=== PATIENT | female | born 1980 | race Caucasian/White ===

== ENCOUNTER 2020-02-29 22:48 | Emergency (ER) | payer SELFPAY ==
--- NOTE | ~2020-02-29 | XR_ITS ---
EXAMINATION: XR wrist RT min 3V INDICATION: Right wrist pain TECHNIQUE: Four views of the right wrist are obtained. COMPARISON: 10/31/2013 FINDINGS: There is no fracture, dislocation, or subluxation. The bones, soft tissues, and joint space s are normal. IMPRESSION: 1. No acute osseous abnormality. Reviewed, dictated and finalized at location A. ACTOR MACHINE OPERATOR
[2020-02-29 23:17] VITALS: BP 132/81; PULSE 90; RESP 20; TEMP 37.2; O2SAT 95
--- NOTE | 2020-02-29 23:24 | ED.UPPEXIN ---
HPI - Extremity Injury (Upper) General Chief Complaint: Extremity Injury, Upper Stated Complaint: 40YO female w/ 2 day h.o Right wrist pain upon waking up. Denies or deosn't recall trauma or injury. Here for pain relief. Related Data Home Medications Medication Instructions Recorded Confirmed gabapentin 600 mg PO TID 02/29/20 02/29/20 Allergies Allergy/AdvReac Type Severity Reaction Status Date / Time No Known Allergies Allergy Mild Unverified 10/21/08 17:03 Review of Systems Review of Systems: All systems reviewed & are unremarkable except as noted in HPI and below Exam Const: General: no acute distress Orientation/consciousness: patient oriented x3 Neuro: General: patient oriented x3, moves all extremities, no meningeal signs, no focal motor deficits and CN's II-XI intact bilaterally Cranial nerves: Yes Nystagmus not present Speech: normal speech Extrem: General: normal to inspection Other: R Wrist Tender to flexion and extension, no obvious deformity. Psych: Mental Status: mental status grossly normal Course Course Emergency Course: R/O Fx. D/C home on Po NSAID's Vital Signs Vital signs: Vital Signs Temperature 98.9 F 02/29/20 23:17 Pulse Rate 90 02/29/20 23:17 Respiratory Rate 20 02/29/20 23:17 Blood Pressure 132/81 02/29/20 23:17 Pulse Oximetry 95 02/29/20 23:17 Temperature 98.9 F 02/29/20 23:17 Pulse Rate 90 02/29/20 23:17 Respiratory Rate 20 02/29/20 23:17 Blood Pressure 132/81 02/29/20 23:17 Pulse Oximetry 95 02/29/20 23:17 MDM - Extremity Injury (Upper) Differential Diagnosis Differential diagnosis: Likely sprain and strain of wrist and fracture of wrist Medical Records Attestation: I reviewed the patient's medical records. Critical Care Time Critical Care Time Critical Care Time: No Discharge Plan Discharge Clinical Impression: Sprain and strain of wrist Patient Disposition: Home, Self-Care Condition: Improved Instructions: Antibiotic Form, Wrist Sprain (ED) Prescriptions: New naproxen 500 mg tablet 500 mg PO BID PRN (Reason: pain) Qty: 20 RF: 0 No Action gabapentin 600 mg Tablet 600 mg PO TID RF: 0 Follow-up/Referrals: UNKNOWN,DOCTOR [Primary Care Provider] -
[2020-02-29] MEDS: KETOROLAC (*BKC) 60 MG/2 ML VIAL IM (23:33)
[2020-02-29 23:55] VITALS: BP 110/80; PULSE 88; RESP 18; O2SAT 94
== END 2020-03-01 00:04 | disposition home or self-care (01) ==
PROVIDERS: Emergency Provider Family Medicine
DX: S63.501A Unspecified sprain of right wrist, initial encounter (principal)
CPT/HCPCS: 73110; 96372; 99283; J1885

== ENCOUNTER 2021-05-24 17:18 | Emergency (ER) | payer BC, SELFPAY ==
--- NOTE | ~2021-05-24 | XR_ITS ---
XR chest 1V portable DATE: 05/24/2021 18:50 INDICATION: Shortness of breath TECHNIQUE: Portable AP chest on 05/24/2021 at 1851 hours COMPARISON: 01/29/2017 two-view chest FINDINGS: Normal heart size. No hilar or mediastinal enlargement. No pulmonary infiltrate or consolid ation, pleural effusion or pulmonary vascular congestion or pneumothorax is detected. IMPRESSION: No active cardiopulmonary disease Reviewed, dictated and finalized at location A.
[2021-05-24 17:32] VITALS: BP 148/79; PULSE 106; RESP 16; TEMP 36.2; O2SAT 99
--- NOTE | 2021-05-24 18:25 | ECG_ITS ---
Measurements Intervals [place] Rate: 84 P: 49 [place]: 185 QRS: 32 QRSD: 86 T: 40 QT: 360 QTc: 427 Interpretive Statements SINUS RHYTHM NO PREVIOUS ECG AVAILABLE FOR COMPARISON Electronically Signed On 05-24-2021 18:45:19 CDT by Jamila Escalona M.D.
--- NOTE | 2021-05-24 18:31 | ED.LOWEXIN ---
HPI - Extremity Injury (Lower) General Chief Complaint: Extremity Injury, Lower Stated Complaint: swollen, heated cecil legs, Time Seen by Provider: 05/24/21 17:20 Source: patient and RN notes reviewed Mode of arrival: ambulatory Limitations: no limitations History of Present Illness complaint: leg injury Onset (ago): week(s) (1) Type of Injury: other (bilateral leg swelling with redness and mild pain x 1 week) Place: home Severity: moderate Severity scale (1-10): 7 Relieving factors: rest Exacerbating factors: weight bearing Associated symptoms: swelling Related Data Home Medications Medication Instructions Recorded Confirmed gabapentin 600 mg PO TID 02/29/20 05/24/21 Allergies Allergy/AdvReac Type Severity Reaction Status Date / Time No Known Allergies Allergy Mild Unverified 05/24/21 17:36 Review of Systems Review of Systems: All systems reviewed & are unremarkable except as noted in HPI and below PMFSH Past Medical History Medical History Dependent edema Leg swelling Exam Const: General: no acute distress and alert Nutritional Appearance: obese Orientation/consciousness: patient oriented x3 Limitations: no limitations HENMT: Head: normal to inspection Ears: external ears normal, TM's normal bilaterally and EAC's normal General nose exam: Normal external nose present and Normal nares present Face and sinus: normal facial exam and sinuses nontender Mouth: Yes moist mucous membranes Eyes: General: appearance normal, both eyes and all related structures Conjunctivae: conjunctivae normal Pupils: Equal, round and reactive pupils present EOM: EOMs intact bilaterally Neck: Neck: normal visual inspection Chest: Chest palpation & inspection: normal inspection of the chest Resp: Effort & Inspection: normal respiratory effort Auscultation: clear to auscultation bilaterally Cardio: Rate: regular rate Rhythm: regular rhythm GI: GI Palp: Yes Soft to palpation and No Tenderness to palpation present (GI) Auscultation: normal bowel sounds : General: Yes bladder normal to palpation and Yes no CVA tenderness Back/Spine/Pelvis: Back: no CVA tenderness Skin: General skin exam: normal color Rashes: no rashes Neuro: General: patient oriented x3, moves all extremities, no meningeal signs, no focal motor deficits and CN's II-XI intact bilaterally Extrem: General: normal to inspection and edema (bilateral leg edema with erythema. jovani's --. no acute neurovascular) bilateral Psych: Appearance: grossly normal and well kempt Mental Status: mental status grossly normal Affect: normal affect Attitude: cooperative Thought content: Yes Normal thought content present Course Course Emergency Course: Pt was stable in the ED Reevaluation(s) Reevaluation #1: VSS Date: 05/24/21 Time: 18:15 Vital Signs Vital signs: Vital Signs Temperature 36.2 C L 05/24/21 17:32 Pulse Rate 106 H 05/24/21 17:32 Respiratory Rate 16 05/24/21 17:32 Blood Pressure 148/79 H 05/24/21 17:32 Pulse Oximetry 99 05/24/21 17:32 Temperature 36.2 C L 05/24/21 17:32 Pulse Rate 95 05/24/21 21:04 Respiratory Rate 16 05/24/21 21:04 Blood Pressure 135/78 05/24/21 21:04 Pulse Oximetry 99 05/24/21 21:04 MDM - Extremity Injury (Lower) Differential Diagnosis Differential diagnosis: Likely other (dependent edema, cellulitis legs, ) Medical Records Attestation: I reviewed the patient's medical records. Lab Data Attestation: I reviewed the patient's lab results. Result diagrams: 05/24/21 18:44 05/24/21 18:44 Labs: Lab Results 05/24/21 05/24/21 05/24/21 Range/Units 18:44 18:44 18:44 WBC 5.5 (4.8-10.8) K/mm3 RBC 4.18 L (4.20-5.40) M/mm3 Hgb 11.6 L (12.0-15.0) g/dL Hct 36.7 (35.0-49.0) % MCV 87.8 (78.0-102.0) fL MCH 27.8 (27.0-31.0) pg MCHC 31.6 L (32.0-36.0) g/dL RDW 13.2
[2021-05-24 18:47] LABS: Basophils Absolute Auto 0.02 K/mm3 (0.00-0.10); Basophils Percent Auto 0.4 % (0.0-1.0); Eosinophils Absolute Auto 0.16 K/mm3 (0.02-0.50); Eosinophils Percent Auto 2.9 % (1.0-6.0); Hematocrit 36.7 % (35.0-49.0); Hemoglobin 11.6 g/dL (12.0-15.0); Immature Granulocyte Absolute 0.04 K/mm3 (0.00-0.00); Immature Granulocyte Percent A 0.7 % (0.0-0.0); Lymphocytes Absolute Auto 1.45 K/mm3 (1.10-4.50); Lymphocytes Percent Auto 26.3 % (18.0-42.0); Mean Corpuscular HGB Conc 31.6 g/dL (32.0-36.0); Mean Corpuscular Hemoglobin 27.8 pg (27.0-31.0); Mean Corpuscular Volume 87.8 fL (78.0-102.0); Mean Platelet Volume 9.9 fl (9.2-11.8); Monocytes Absolute Auto 0.41 K/mm3 (0.10-0.90); Monocytes Percent Auto 7.4 % (2.0-11.0); Neutrophils Absolute Auto 3.4 K/mm3 (1.7-7.2); Neutrophils Percent Auto 62.3 % (50.0-70.0); Platelet Count Result 202 K/mm3 (150-420); Red Blood Count 4.18 M/mm3 (4.20-5.40); Red Cell Distribution Width 13.2 % (11.6-14.4); White Blood Count 5.5 K/mm3 (4.8-10.8)
[2021-05-24] MEDS: FUROSEMIDE INJ 100 MG/10 ML VIAL 80 MG IV PUSH (19:01)
[2021-05-24] MEDS: SODIUM CHLORIDE 0.9% IV 500 ML 999 ML IV CONT (19:01)
[2021-05-24 19:05] LABS: Alanine Aminotransferase 8 U/L (14-59); Albumin Level 3.3 g/dL (3.4-5.0); Alkaline Phosphatase 104 U/L (46-116); Anion Gap 5 mmol/L (8-16); Aspartate Amino Transferase 15 U/L (15-37); Bilirubin,Total 0.3 mg/dL (0.00-1.00); Blood Urea Nitrogen 16 mg/dL (7-18); Calcium 8.7 mg/dL (8.5-10.1); Carbon Dioxide 31 mmol/L (21-32); Chloride 99 mmol/L (98-108); Estimated CRCL calculation 85 ml/min; Estimated Glomerular Filt Rate > 60; Glucose 102 mg/dL (70-99); Osmolality Calculated 281 mOsm/kg (285-295); Potassium 4.4 mmol/L (3.5-5.1); Sodium 135 mmol/L (136-145); Total Protein 6.5 g/dL (6.4-8.2)
[2021-05-24 19:09] LABS: Lactic Acid Reflex 0.5 mmol/L (0.4-2.0)
[2021-05-24 19:29] LABS: Add Urine Microscopic? NO; Appearance Urine Clear (Clear); Bilirubin Urine Negative (Negative); Blood Urine Negative (Negative); Color Urine Light Yellow (Yellow); Glucose Urine UA Negative (Negative); Ketones Urine Negative (Negative); Leukocyte Esterase Ur Negative (Negative); Nitrate Urine Negative (Negative); Protein Urine Negative (Negative); Specific Grav Ur 1.015 (1.010-1.020); Urobilinogen Urine 0.2 mg/dL (0.2-1.0)
[2021-05-24 20:16] LABS: NT Pro B Type Natriuretic Pept 131 pg/mL (0-125)
[2021-05-24 21:04] VITALS: BP 135/78; PULSE 95; RESP 16; O2SAT 99
== END 2021-05-24 21:08 | disposition home or self-care (01) ==
PROVIDERS: Emergency Provider Emergency Medicine; PCP Nurse Practitioner
DX: R60.9 Edema, unspecified (principal); L03.119 Cellulitis of unspecified part of limb
CPT/HCPCS: 36415; 71045; 80053; 81003; 83605; 83880; 84484; 85025; 93005; 96365; 96375; 99284; J0696; J1940; J7040

== ENCOUNTER 2021-07-15 07:25 | Outpatient (CLI) | payer BC, SELFPAY ==
--- NOTE | ~2021-07-15 | US_ITS ---
EXAMINATION: US arterial ankle brachial ind DATE: 07/15/2021 08:05 INDICATION: Bilateral lower limb swelling TECHNIQUE: Segmental pressures and plethysmographic and Doppler waveforms of the brachial and lower e xtremity arteries were obtained. COMPARISON: None. FINDINGS: Right and left brachial artery pressures of 156 mm Hg and 136 mm Hg, respectively, are concordant (no rmal difference <= 30 mmHg). The right ankle-brachial index (KRISSY) is 0.90 (normal >= 0.9-1.0). The right great toe-brachial index (TBI) is 0.51 (normal >= 0.65). Arterial Doppler waveforms are biphasic with brisk systolic upstrokes at both right posterior tibial and dorsalis pedis arteries. The left KRISSY is 0.97. The left TBI is 0.54. Arterial Doppler waveforms are biphasic with brisk systol ic upstrokes at both left posterior tibial and dorsalis pedis arteries. IMPRESSION: 1. 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 Reviewed, dictated and finalized at location D. IMPRESSION: 1. Mild arterial occlusive disease to both lower limbs with borderline bilatera l ABIs and mildly decreased bilateral TBIs.
--- NOTE | ~2021-07-15 | US_ITS ---
EXAMINATION: US venous doppler [facility] DATE: 07/15/2021 08:05 INDICATION: Left lower limb swelling TECHNIQUE: Grayscale ultrasound images without and with compression and Doppler ultrasound images of the left lower extremity veins were obtained. COMPARISON: None. FINDINGS: The visualized portions of left common femoral vein, profunda (deep) femoral vein, femoral vein, popl iteal vein, peroneal veins, posterior tibial veins, gastrocnemius vein and greater saphenous vein out flow are patent. IMPRESSION: 1. No deep venous thrombosis in the left lower limb. Reviewed, dictated and finalized at location D.
== END 2021-07-15 07:26 | disposition home or self-care (01) ==
LOC: CHSIMG 07:26
PROVIDERS: PCP Nurse Practitioner; Visit Provider Nurse Practitioner
DX: I73.9 Peripheral vascular disease, unspecified (principal); R60.0 Localized edema
CPT/HCPCS: 93922; 93971

== ENCOUNTER 2021-10-14 15:08 | Outpatient (RCR) | payer BC, SELFPAY ==
--- NOTE | 2021-10-14 16:12 | PTOPEVAL ---
Thank you for referring Meghan Russell to [facility].? The patient is scheduled to be seen for therapy? ____x/week for ___ weeks. Please review, sign, date and return this plan of care МАРИНА. I agree with and certify that the following plan of care is medically necessary. Referring Physician Date Admitting Provider: Attending Provider: Wanda Márquez, MOON Referring Provider: *PT Outpatient Evaluation Start: 10/14/21 15:11 Freq: Status: Active Protocol: Document 10/14/21 15:15 [facility] (Rec: 10/14/21 16:08 [facility] [id number]) Therapy Assessment Status Assessment Status Assessment Status Evaluation Outpatient Past Medical History Cardiovascular History Hx Hypertension Yes Psychosocial History Hx Depression Yes Evaluation Information Problem Diagnosis low back strain, lumbago Onset 10/11/21 Additional Evaluation Detail oswestry = 82% functionally declined Subjective Information patient reports she is having Query Text:As Reported By Patient/ redness/swelling in the L LE. Family she reports she was told it was cellulitis. she reports she has ruled out any cardiac issues. she reports it started in the lower L leg, and reports she now has it all the way up both legs. she reports it is hard and feels like a donut between her legs. she reports in regards to the lower back pain, she is having spasms in the lower back. she reports she has had symptoms on and off for a while. she reports she has sharp pains at times when she moves the wrong way. she reports the pain will go down the L LE at times. patient reports she works at [employer]. 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 she reports she is currently off the schedule at work. she reports 6-8 months ago she was not lifting as much at work. 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 she reports she has increased lower back p
== END 2021-10-14 16:51 | disposition home or self-care (01) ==
LOC: CHSPT 15:08
PROVIDERS: PCP Physician Assistant; Visit Provider Physician Assistant
DX: S39.012A Strain of muscle, fascia and tendon of lower back, initial encounter (principal)
CPT/HCPCS: 97014; 97110; 97162; G0283

== ENCOUNTER 2021-10-16 19:08 | Inpatient (IN) | payer BC, SELFPAY ==
--- NOTE | ~2021-10-16 | XR_ITS ---
EXAMINATION: XR chest 2V DATE: 10/16/2021 22:33 INDICATION: Pedal edema. TECHNIQUE: Frontal and lateral views of the chest were obtained. COMPARISON: Chest single view 05/24/2021 FINDINGS: The chest demonstrates clear lungs without pneumonia, pleural effusion, or pneumothorax. Th e heart size is normal. IMPRESSION: 1. No acute cardiopulmonary disease. Reviewed, dictated and finalized at location A.
--- NOTE | ~2021-10-16 | CT_ITS ---
EXAMINATION: CTA chest PE protocol DATE: 10/17/2021 00:36 INDICATION: Bilateral lower limb swelling. TECHNIQUE: Computed tomography angiography (CTA) of the chest was performed with 56 mL Omnipaque-350 intravenous contrast timed to evaluate the pulmonary arteries. Coronal maximum intensity projection 3 D-reconstructions were created by the technologist. Automated exposure control and iterative reconstr uction technique were employed. The dose-length product was 984.55 mGy-cm. COMPARISON: None. FINDINGS: There is mild emphysema. There are patchy groundglass opacities in the upper lobes and supe rior segment right lower lobe. No pleural effusion. The heart size is normal. No pericardial effusion . There is no pulmonary embolus. There is diffuse hepatic steatosis. There is mild thoracic spondylos is. IMPRESSION: 1. No pulmonary embolus. 2. Patchy groundglass opacities in the upper lobes and superior segment right lower lobe, consistent with pneumonia. 3. Mild emphysema. Reviewed, dictated and finalized at location A. IMPRESSION: 1. No pulmonary embolus. 2. Patchy groundglass opacities in the upper lobes and superior segment right l ower lobe, consistent with pneumonia. 3. Mild emphysema.
[2021-10-16 21:42] VITALS: BP 133/56; PULSE 96; RESP 20; TEMP 36.2; O2SAT 97
--- NOTE | 2021-10-16 22:03 | ED.GENADULT ---
HPI - General Adult General Chief complaint: Extremity Injury, Lower Stated complaint: thinks she has cellulitis in legs History of Present Illness HPI narrative: The patient is a 41-year-old woman who has had bilateral lower extremity cellulitis that has been progressive since at least May 24, 2021. At that time, she has seen us in the emergency room and was diagnosed with bilateral lower extremity cellulitis after a workup: she was placed on Keflex for 10 days 500 mg q.i.d.. She did have bilateral lower extremity edema and was placed on Lasix 20 mg p.o. b.i.d.. This subsequently was increased by her primary care provider over the next several weeks, to 40 mg twice daily which is her current dose. She underwent a 2nd course of antibiotics for approximately 10 days in June 2021 per her PCP. She saw her primary care provider again in July 2021 and had a DVT study of the left lower extremity was negative, and ABIs were adequate, with only mild occlusive disease. She has also seen a vein specialist in [place] and they told her that no vein surgery is needed. They advised her to wear compression stockings. She has been complying with all these recommendations. She has needed to get off of work for the last week since she has significantly worse edema in her lower extremities, with itching. The cellulitis is now up to the groin, along with swelling that includes not only the lower legs but also the thighs. She is quite uncomfortable. She has elevated her legs at home. She has worn her compression stockings. She is compliant with all treatments but still her condition has worsened. She presents for further evaluation. She denies any dyspnea or cough or rhinorrhea or nasal congestion or chest pain. Her only other comorbidities depression. Related Data Home Medications Medication Instructions Recorded Confirmed gabapentin 600 mg tablet 600 mg PO TID 02/29/20 10/16/21 Allergies Allergy/AdvReac Type Severity Reaction Status Date / Time No Known Allergies Allergy Mild Verified 10/16/21 22:38 Review of Systems Review of Systems: All systems reviewed & are unremarkable except as noted in HPI and below Constitutional: Constitutional: Reports no additional constitutional complaints, Denies anorexia, Denies body ache(s), Denies chills, Denies excessive sweating, Denies fatigue, Denies fever(s), Denies frequent falls, Denies headache(s), Denies malaise and Denies poor appetite Eyes: Eyes: Reports no additional eye complaints, Denies blurry vision, Denies change in vision, Denies irritation, Denies itchy eyes and Denies photophobia ENT: Reports system reviewed and no additional complaints, except as documented, Reports Normal hearing present, Denies change in voice, Denies dysphagia, Denies vertigo, Denies dizziness, Denies ear discharge, Denies headache(s), Denies hearing loss, Denies hoarseness, Denies nasal congestion, Denies neck pain, Denies sinus pressure, Denies sore throat and Denies throat swelling Cardiovascular: Cardiovascular: Reports no additional cardiovascular complaints, Denies chest pain, Denies syncope, Denies rapid heart rate, Denies irregular heart rhythm, Reports leg edema (to the thighs bilaterally), Denies dyspnea and Denies slow heart rate Respiratory: Respiratory: Reports no additional respiratory complaints, Denies chest congestion, Denies cough, Denies dyspnea, Denies stridor and Denies wheezing Gastrointestinal: Gastrointestinal: Reports no additional gastrointestinal complaints, Denies abdominal pain, Denies melena, Denies hematochezia, Denies dysphagia, Denies diarrhea, Denies nausea and Denies vomiting Genitourinary: Genitourinary: Denies hematuria, Denies urinary frequency, Denies dysuria, Denies flank pain and Denies urinary urgency Musculoskeletal: Musculoskeletal: Reports no additional musculoskeletal complaints, Denies abnormal gait, Denies back pain, Denies myalgias, Denies arthralgias, Denies joint s
--- NOTE | 2021-10-16 22:11 | ECG_ITS ---
Measurements Intervals [place] Rate: 89 P: 62 [place]: 174 QRS: 44 QRSD: 93 T: 40 QT: 350 QTc: 427 Interpretive Statements BASELINE ARTIFACT NOTED SINUS RHYTHM GROSSLY NORMAL ECG COMPARED TO ECG 05/24/2021 17:39:56 NO SIGNIFICANT CHANGES Electronically Signed On 10-17-2021 14:45:21 CDT by Olman Camacho M.D.
[2021-10-16 23:09] LABS: Basophils Absolute Auto 0.01 K/mm3 (0.00-0.10); Basophils Percent Auto 0.2 % (0.0-1.0); Eosinophils Absolute Auto 0.17 K/mm3 (0.02-0.50); Hematocrit 31.8 % (35.0-49.0); Hemoglobin 10.2 g/dL (12.0-15.0); Immature Granulocyte Absolute 0.09 K/mm3 (0.00-0.00); Immature Granulocyte Percent A 1.6 % (0.0-0.0); Lymphocytes Absolute Auto 1.27 K/mm3 (1.10-4.50); Lymphocytes Percent Auto 22.6 % (18.0-42.0); Mean Corpuscular HGB Conc 32.1 g/dL (32.0-36.0); Mean Corpuscular Hemoglobin 27.6 pg (27.0-31.0); Mean Corpuscular Volume 85.9 fL (78.0-102.0); Mean Platelet Volume 10.6 fl (9.2-11.8); Monocytes Absolute Auto 0.38 K/mm3 (0.10-0.90); Monocytes Percent Auto 6.8 % (2.0-11.0); Neutrophils Absolute Auto 3.7 K/mm3 (1.7-7.2); Neutrophils Percent Auto 65.8 % (50.0-70.0); Platelet Count Result 232 K/mm3 (150-420); Red Cell Distribution Width 13.2 % (11.6-14.4); White Blood Count 5.6 K/mm3 (4.8-10.8)
[2021-10-16] MEDS: FUROSEMIDE INJ 100 MG/10 ML VIAL 80 MG IV PUSH (23:19)
[2021-10-16 23:26] LABS: Lactic Acid Reflex 0.6 mmol/L (0.4-2.0)
[2021-10-16 23:30] LABS: Alanine Aminotransferase 27 U/L (14-59); Alkaline Phosphatase 132 U/L (46-116); Anion Gap 5 mmol/L (8-16); Aspartate Amino Transferase 27 U/L (15-37); Bilirubin,Total 0.3 mg/dL (0.00-1.00); Blood Urea Nitrogen 13 mg/dL (7-18); CRP 5.2 mg/dL (0.0-0.9); Calcium 8.9 mg/dL (8.5-10.1); Carbon Dioxide 32 mmol/L (21-32); Chloride 98 mmol/L (98-108); Estimated Glomerular Filt Rate > 60; Glucose 96 mg/dL (70-99); NT Pro B Type Natriuretic Pept 154 pg/mL (0-125); Osmolality Calculated 280 mOsm/kg (285-295); Potassium 4.5 mmol/L (3.5-5.1); Prothrombin Time 10.9 Seconds (9.50-12.10); Sodium 135 mmol/L (136-145); Total Protein 6.8 g/dL (6.4-8.2); Troponin I 9.5 ng/L (0.00-60.4)
[2021-10-16] MEDS: diphenhydrAMINE HCl INJ 50 MG/ML VIAL IV PUSH (23:30)
[2021-10-16 23:36] LABS: SPREG INTERNAL CONTROL Positive; Serum Qual hCG Negative
[2021-10-16 23:46] LABS: SARS-CoV-2 RNA PCR Negative (Negative)
[2021-10-17 00:01] LABS: D Dimer 1.05 mg/L (0.19-0.50)
[2021-10-17 00:16] LABS: Erythrocyte Sedimentation Rate 40 mm/hr (0-15)
[2021-10-17 00:27] LABS: Add Urine Microscopic? NO; Appearance Urine Clear (Clear); Bilirubin Urine Negative (Negative); Blood Urine Negative (Negative); Color Urine Light Yellow (Yellow); Glucose Urine UA Negative (Negative); Ketones Urine Negative (Negative); Leukocyte Esterase Ur Negative LEU/UL (Negative); Nitrate Urine Negative (Negative); Protein Urine Negative (Negative); Specific Grav Ur 1.015 (1.010-1.020); Urobilinogen Urine 0.2 mg/dL (0.2-1.0)
[2021-10-17] MEDS: methylPREDNISolone SOD SUCC 125 MG VIAL IV PUSH (00:31)
[2021-10-17 00:38] VITALS: BP 120/70; PULSE 79; RESP 16; O2SAT 96
[2021-10-17 00:53] LABS: Amphetamine Screen Urine Positive (Negative); Barbiturate Screen Urine Negative (Negative); Benzodiazepines Screen Urine Negative (Negative); Cannabinoid Screen Urine Negative (Negative); Cocaine Screen Urine Negative (Negative); Methadone Screen Urine Negative (Negative); Opiate Screen Urine Negative (Negative); Phencyclidine Screen Urine Negative (Negative)
--- NOTE | 2021-10-17 01:00 | ECHO_ITS ---
Patient Info Name: Meghan Russell Age: 41 years : 1980 Gender: Female Ht: 64 in Wt: 311 lbs BSA: 2.61 m2 HR: 70 bpm BP: 139 / 77 mmHg Heart Rhythm: Sinus Rhythm Technical Quality: Fair Exam Date: 10/17/2021 12:02 PM Exam Location: [facility], [place] Patient Status: Inpatient Admit Date: 10/17/2021 Staff Ordering Physician: Angela Andrew Director Learning And Development: Kaila Torres RDCS Attending Provider: Jon Hernandez MD Referring Physician: Kamran CHAN; Exam Type: CA echo dop color flow w con Study Info Indications - ROHAN LE SWELLING Complete two-dimensional, color flow and Doppler transthoracic echocardiogram is performed with contrast to opacify the left ventricle and to improve the deliniation of the left ventricle endocardial borders. Contrast/Agitated Saline Contrast/Ag. Saline: Definity Amount: 2.00 ml Administered By: Kaila Torres RDCS Existing IV Access: Yes IV Access Condition: patent with no signs of infiltration Summary 1. Left ventricular chamber dimension is normal. 2. Definity contrast administered did not improve wall motion interpretation. 3. Left ventricular systolic function is normal, estimated at 60-65%. 4. The left ventricular diastolic function is abnormal. 5. E/e' 12 is mildly elevated. 6. There is mild mitral valve regurgitation. 7. There is mild tricuspid valve regurgitation. 8. No pulmonary hypertension, estimated pulmonary arterial systolic pressure is 28 mmHg. Left Ventricle E/e' 12 is mildly elevated. Definity contrast administered did not improve wall motion interpretation. Left ventricular chamber dimension is normal. Left ventricular systolic function is normal, estimated at 60-65%. The left ventricular diastolic function is abnormal. Right Ventricle Right ventricular systolic function is normal and with normal TAPSE 3.6 cm. Right ventricular chamber dimension is normal. Left Atria Left atrial chamber dimension is normal. Right Atria Right atrial chamber dimension is normal. Aortic Valve The aortic valve is trileaflet. There is no aortic valve stenosis. There is no aortic valve regurgitation. Pulmonic Valve There is no pulmonic regurgitation. Mitral Valve There is no mitral valve stenosis. There is mild mitral valve regurgitation. Tricuspid Valve There is mild tricuspid valve regurgitation. No pulmonary hypertension, estimated pulmonary arterial systolic pressure is 28 mmHg. Pericardium/Pleural There is no pericardial effusion. Inferior Vena Cava Normal inferior vena cava with >50% collapse upon inspiration consistent with normal right atrial pressure, 5 mmHg. Aorta The aortic root size at the sinus of Valsalva is normal. Left Ventricular Outflow Tract Name Value Normal LVOT 2D LVOT Diameter 1.99 cm LVOT Doppler LVOT Peak Velocity 123.25 cm/s LVOT Peak Gradient 6 mmHg LVOT Mean Gradient 3 mmHg LVOT VTI 26.27 cm LVOT VTI/AV VTI Ratio
[2021-10-17 01:14] VITALS: BP 113/83; PULSE 81; RESP 19; O2SAT 96
[2021-10-17 01:39] VITALS: BP 113/83; PULSE 78; RESP 19; TEMP 36.9; O2SAT 97
[2021-10-17 01:47] VITALS: BMI 53.5
[2021-10-17 02:00] VITALS: BP 105/56; PULSE 77; RESP 19; TEMP 36.3; O2SAT 97
--- NOTE | 2021-10-17 03:52 | ADMGEN ---
This patient, Meghan Russell, was admitted to 2nd Floor Room 203-1. Patient was oriented to hospital policies and general routines including ID bracelet, bed and alarms, pain management, procedures, bathroom and other care routines, personal items, smoking policy, room service/diet, and visiting hours. Information on how to activate the Rapid Response Team has been discussed. Patient is encouraged to report perceived risks to care and to ask questions if she does not understand what she is told or what she should do.
[2021-10-17] MEDS: HYDROcodone/acetaminophen (*CRX) 5-325 MG TABLET 1 TAB PO ×2 (05:23→21:25)
[2021-10-17 06:10] LABS: Estimated CRCL calculation 88 ml/min; Estimated Glomerular Filt Rate 58
[2021-10-17 07:35] VITALS: BP 110/55; PULSE 69; RESP 16; TEMP 35.8; O2SAT 94
[2021-10-17 08:39] LABS: Hematocrit 33.7 % (35.0-49.0); Hemoglobin 10.8 g/dL (12.0-15.0); Mean Corpuscular Hemoglobin 27.8 pg (27.0-31.0); Mean Corpuscular Volume 86.6 fL (78.0-102.0); Mean Platelet Volume 10.7 fl (9.2-11.8); Platelet Count Result 236 K/mm3 (150-420); Red Blood Count 3.89 M/mm3 (4.20-5.40); Red Cell Distribution Width 13.3 % (11.6-14.4); White Blood Count 5.1 K/mm3 (4.8-10.8)
[2021-10-17 08:54] LABS: Alanine Aminotransferase 26 U/L (14-59); Albumin Level 3.2 g/dL (3.4-5.0); Alkaline Phosphatase 126 U/L (46-116); Anion Gap 6 mmol/L (8-16); Aspartate Amino Transferase 28 U/L (15-37); Bilirubin,Total 0.2 mg/dL (0.00-1.00); Blood Urea Nitrogen 14 mg/dL (7-18); Calcium 8.6 mg/dL (8.5-10.1); Carbon Dioxide 33 mmol/L (21-32); Chloride 97 mmol/L (98-108); Estimated CRCL calculation 88 ml/min; Estimated Glomerular Filt Rate 58; Glucose 130 mg/dL (70-99); Osmolality Calculated 284 mOsm/kg (285-295); Potassium 4.1 mmol/L (3.5-5.1); Sodium 136 mmol/L (136-145); Total Protein 6.7 g/dL (6.4-8.2)
[2021-10-17] MEDS: FUROSEMIDE INJ 20 MG/2 ML VIAL IV PUSH ×2 (10:05→18:02)
[2021-10-17] MEDS: ENOXAPARIN 40 MG/0.4 ML SYRINGE SUB-Q (10:05)
[2021-10-17] MEDS: GABAPENTIN 300 MG CAPSULE 600 MG PO ×3 (10:05→18:02)
[2021-10-17] MEDS: POTASSIUM CHLORIDE 20 MEQ TABLET PO (10:05)
--- NOTE | 2021-10-17 10:22 | PM.IMHP ---
H&P: HPI History of Present Illness Date/Time: 10/17/21 10:22 Chief Complaint: Bilateral lower extremities Narrative: This is a 41-year-old female who presented to the emergency department with bilateral lower extremity redness and swelling. Patient has a past medical history of dependent edema and leg swelling. According to patient back in May she started experiencing bilateral lower extremity swelling along with redness that started on her left leg migrated up her thigh then to her left leg. Patient noted she proceeded to urgent care who referred her to the ED in the ED she was given antibiotic treatment 10 days patient notes that she completed her therapy. She notes that her condition had improved after use of antibiotic therapy it worsened again and she went to her primary care physician who gave her another round of antibiotic treatment. Patient is unsure of what antibiotic she was given. She also was referred to a vascular surgeon and tool and machine maintainer. Patient did visit the vascular surgeon who did not believe she needed any intervention. She has an appointment with a tool and machine maintainer this month. Patient notes that she has been experiencing swelling and redness for approximately 3 weeks. She also notes that her primary care physician told her to wear DARON hose. She notes that the DARON hose did decrease her swelling from her knee down. She notes that the swelling started to migrate to her thighs. Patient is here today because she said that the tightness and redness has gotten worse. Patient WBCs 5.1 hemoglobin 10.8, hematocrit 33.7, platelets 236, D-dimer 1.05, sodium 135, potassium 4.5, BUN 13, creatinine 0.93, glucose 96, lactic acid 0.6, magnesium 2.0 total bilirubin 0.3 AST 27 ALT 27 BNP 154 UA negative positive for amphetamines, CTA negative for PE does indicate pneumonia EKG sinus rhythm with a heart rate of 89. Patient be admitted for cellulitis she will have an echo completed to rule out congestive heart failure. The patient denies SOB, CP, palpitation, extremity numbness, lightheadedness, dizziness, constipation, diarrhea, chills, or fever. Review of Systems Review of Systems: A 14 organ system Review of Systems was performed and pertinent positives included in the HPI, otherwise remaining ROS is negative. [facility] Past Medical History Medical History Dependent edema Leg swelling Family History Family History (Updated 10/17/21 @ 04:44 by Lorrie Sauer RN) Mother Graves disease Acquired lymphedema of leg ALFARO (nonalcoholic steatohepatitis) Social History Social History Smoking packs per day: 1 Smoking cigarettes per day: 20.0 Years smoked: 23 Smoking pack-years: 23.00 Smoking status: Current every day smoker Tobacco type: cigarettes Alcohol intake: never Substance use type: methamphetamine Last use: 10/14/2021 Spiritual care concerns: No Meds Home Medications and Allergies Home Medications Medication Instructions Recorded Confirmed Type gabapentin 600 mg tablet 600 mg PO TID 02/29/20 10/16/21 History furosemide 20 mg tablet (Lasix) 20 mg PO BID #20 tabs 05/24/21 10/16/21 Rx potassium chloride 20 mEq 20 meq PO DAILY #20 tabs 05/24/21 10/16/21 Rx tablet,extended release fluoxetine 20 mg capsule (Prozac) 60 mg PO DAILY 10/17/21 10/17/21 History Allergies Allergy/AdvReac Type Severity Reaction Status Date / Time No Known Allergies Allergy Mild Verified 10/16/21 22:38 Vital Signs Vital Signs - 24 hr 10/16/21 21:42 10/17/21 01:39 10/17/21 00:38 Temperature 97.1 F L 98.5 F Pulse Rate 96 78 79 Respiratory Rate 20 19 16 Blood Pressure 133/56 L 113/83 120/70 Pulse Oximetry 97 97 96 Oxygen Delivery Room Air Room Air Room Air 10/17/21 01:14 10/17/21 02:00 10/17/21 07:35 Temperature 97.3 F L 96.4 F L Pulse Rate 81 77 69 Respiratory Rate 19 19 16 Blood Pre
[2021-10-17] MEDS: NICOTINE (*PBKC) 21 MG PATCH 1 PATCH TRANSDERM (11:27)
[2021-10-17] MEDS: FLUoxetine HCL 20 MG CAPSULE 60 MG PO (11:28)
--- NOTE | 2021-10-17 11:55 | PC.NURSE ---
IV site noted to be leaking at 1100. This nurse attempted x1 unsuccessfully. Nurse Marie and Nurse Mady looked at patient arms and did not see any good IV sites. Nurse Loraine came to look at patient at 1145, successfully placed a #22 to right hand.
[2021-10-17 15:25] VITALS: BP 126/67; PULSE 71; RESP 18; TEMP 35.5; O2SAT 96
[2021-10-17] MEDS: traMADol HCL (*CRX) 25 MG TABLET PO (18:03)
[2021-10-17] MEDS: diphenhydrAMINE HCl CAP 25 MG CAPSULE PO (21:24)
[2021-10-18] VITALS: BP 114/63; PULSE 64; RESP 18; TEMP 36.5; O2SAT 94
[2021-10-18 07:30] VITALS: BP 113/70; PULSE 63; RESP 18; TEMP 35.9; O2SAT 95
[2021-10-18] MEDS: ENOXAPARIN 40 MG/0.4 ML SYRINGE SUB-Q (09:13)
[2021-10-18] MEDS: NICOTINE (*PBKC) 21 MG PATCH 1 PATCH TRANSDERM (09:13)
[2021-10-18] MEDS: FUROSEMIDE INJ 20 MG/2 ML VIAL IV PUSH ×2 (09:13→16:46)
[2021-10-18] MEDS: POTASSIUM CHLORIDE 20 MEQ TABLET PO (09:14)
[2021-10-18] MEDS: GABAPENTIN 300 MG CAPSULE 600 MG PO ×3 (09:14→16:46)
[2021-10-18] MEDS: FLUoxetine HCL 20 MG CAPSULE 60 MG PO (09:15)
[2021-10-18 09:52] LABS: Mean Corpuscular HGB Conc 31.4 g/dL (32.0-36.0); Mean Corpuscular Hemoglobin 27.3 pg (27.0-31.0); Mean Corpuscular Volume 86.8 fL (78.0-102.0); Mean Platelet Volume 10.4 fl (9.2-11.8); Platelet Count Result 224 K/mm3 (150-420); Red Blood Count 4.03 M/mm3 (4.20-5.40); Red Cell Distribution Width 13.4 % (11.6-14.4); White Blood Count 7.6 K/mm3 (4.8-10.8)
--- NOTE | 2021-10-18 10:02 | WPDPN ---
Progress Note: A&P Assessment and Plan (1) Cellulitis: Qualifiers: Laterality: left Site of cellulitis: extremity Site of cellulitis of extremity: lower extremity Qualified Code(s): L03.116 - Cellulitis of left lower limb Code(s): L03.90 - Cellulitis, unspecified Status: Acute Assessment and Plan: Patient currently on vancomycin in Rocephin WBC and lactic acid within normal limits D-dimer and CRP elevated CTA negative for PE Dopplers completed on 07/15/2021 no DVT noted Consults infectious disease pharmacist waiting on recommendation thank you for the care of this patient. Recommend continue treatment plan Blood culture pending (2) Bilateral cellulitis of lower leg: Code(s): L03.116 - Cellulitis of left lower limb; L03.115 - Cellulitis of right lower limb Status: Acute Assessment and Plan: Patient currently on vancomycin in Rocephin WBC and lactic acid within normal limits D-dimer and CRP elevated CTA negative for PE Dopplers completed on 07/15/2021 no DVT noted Consults infectious disease pharmacist waiting on recommendation thank you for the care of this patient. Command continue treatment plan Blood culture pending (3) Dependent edema: Code(s): R60.9 - Edema, unspecified Status: Acute Assessment and Plan: Cellulitis versus congestive heart failure Patient currently on vancomycin in Rocephin WBC and lactic acid within normal limits D-dimer and CRP elevated CTA negative for PE Dopplers completed on 07/15/2021 no DVT noted Consults infectious disease pharmacist waiting on recommendation thank you for the care of this patient. Blood culture pending Echo pending Patient has an appointment with cardiology this month. Stated vascular surgery indicated no intervention needed. (4) Leg swelling: Code(s): M79.89 - Other specified soft tissue disorders Status: Acute (5) Acute kidney injury: Code(s): N17.9 - Acute kidney failure, unspecified Status: Acute Assessment and Plan: Slightly elevated creatinine1.04 Secondary to the use of Lasix Will closely monitor renal function Subjective Date/time seen: 10/18/21 10:02 Interval history: Patient's position is unchanged she continues to have edematous with erythema to her bilateral lower extremities. Patient has no other complaint at this time. She slept well overnight, she is anxious to find out her echo results which are still pending. The patient denies SOB, CP, palpitation, extremity numbness, lightheadedness, dizziness, constipation, diarrhea, chills, or fever. Exam Narrative: GENERAL: This is a well-nourished, well-developed patient, in no apparent distress. HEAD: normocephalic, atraumatic. EYES: PERRL. Sclera clear/white. Vision is grossly intact. EARS: External ears normal, auditory canals clear and without drainage, TMs normal without perforation. Hearing grossly intact. NOSE: External nose normal with no obvious nasal discharge, nares without redness, no rhinorrhea. THROAT: Mucous membranes moist, posterior pharynx clear. NECK: Neck supple, non-tender without lymphadenopathy, masses or thyromegaly. CARDIOVASCULAR: Regular rate and rhythm without murmurs, gallops, or rubs. RESPIRATORY: Clear to auscultation. Breath sounds equal bilaterally. No wheezes, rales, or rhonchi. GASTROINTESTINAL: Abdomen soft, non-tender, nondistended. Bowel sounds are active. No hepato-splenomegaly, or palpable masses. No guarding. SKIN: warm, intact with no suspicious lesions or rash, good texture and turgor. NEURO: awake, alert, and oriented to person, place and time. There were no obvious focal neurologic abnormalities. Steady gait EXTREMITIES: Normal range of motion. No edema. No calf tenderness. Negative Homans sign bilaterally. Bilateral lower extremity swelling and erythema about 3+ pitting edema bilateral no open areas or warmth noted. BACK: Nontender without deformity
[2021-10-18 10:18] LABS: Alanine Aminotransferase 28 U/L (14-59); Albumin Level 3.2 g/dL (3.4-5.0); Alkaline Phosphatase 119 U/L (46-116); Anion Gap 8 mmol/L (8-16); Aspartate Amino Transferase 26 U/L (15-37); Bilirubin,Total 0.2 mg/dL (0.00-1.00); Blood Urea Nitrogen 19 mg/dL (7-18); Carbon Dioxide 32 mmol/L (21-32); Chloride 98 mmol/L (98-108); Estimated CRCL calculation 90 ml/min; Estimated Glomerular Filt Rate 59; Glucose 139 mg/dL (70-99); Osmolality Calculated 290 mOsm/kg (285-295); Potassium 3.2 mmol/L (3.5-5.1); Sodium 138 mmol/L (136-145); Total Protein 7.3 g/dL (6.4-8.2)
[2021-10-18 10:19] LABS: Vancomycin Trough 19.9 ug/mL (10.0-15.0)
[2021-10-18 15:25] VITALS: BP 103/73; PULSE 73; RESP 16; TEMP 35.7; O2SAT 96
[2021-10-19] VITALS: BP 129/65; PULSE 75; RESP 18; TEMP 35.8; O2SAT 98
[2021-10-19 05:20] LABS: Hematocrit 33.9 % (35.0-49.0); Hemoglobin 10.7 g/dL (12.0-15.0); Mean Corpuscular HGB Conc 31.6 g/dL (32.0-36.0); Mean Corpuscular Hemoglobin 27.4 pg (27.0-31.0); Mean Corpuscular Volume 86.7 fL (78.0-102.0); Mean Platelet Volume 10.8 fl (9.2-11.8); Platelet Count Result 209 K/mm3 (150-420); Red Blood Count 3.91 M/mm3 (4.20-5.40); Red Cell Distribution Width 13.5 % (11.6-14.4); White Blood Count 4.3 K/mm3 (4.8-10.8)
[2021-10-19 05:37] LABS: Alanine Aminotransferase 25 U/L (14-59); Albumin Level 2.8 g/dL (3.4-5.0); Alkaline Phosphatase 117 U/L (46-116); Anion Gap 6 mmol/L (8-16); Aspartate Amino Transferase 22 U/L (15-37); Bilirubin,Total 0.2 mg/dL (0.00-1.00); Blood Urea Nitrogen 20 mg/dL (7-18); Calcium 8.8 mg/dL (8.5-10.1); Carbon Dioxide 31 mmol/L (21-32); Chloride 99 mmol/L (98-108); Estimated CRCL calculation 106 ml/min; Estimated Glomerular Filt Rate > 60; Glucose 87 mg/dL (70-99); Osmolality Calculated 283 mOsm/kg (285-295); Potassium 4.2 mmol/L (3.5-5.1); Sodium 136 mmol/L (136-145); Total Protein 6.3 g/dL (6.4-8.2)
[2021-10-19 07:30] VITALS: BP 135/63; PULSE 82; RESP 18; TEMP 36; O2SAT 97
[2021-10-19] MEDS: FLUoxetine HCL 20 MG CAPSULE 60 MG PO (09:24)
[2021-10-19] MEDS: FUROSEMIDE INJ 40 MG/4 ML VIAL IV PUSH (09:24)
[2021-10-19] MEDS: GABAPENTIN 300 MG CAPSULE 600 MG PO (09:24)
[2021-10-19] MEDS: FUROSEMIDE INJ 20 MG/2 ML VIAL IV PUSH (09:24)
[2021-10-19] MEDS: POTASSIUM CHLORIDE 20 MEQ TABLET PO (09:24)
[2021-10-19] MEDS: NICOTINE (*PBKC) 21 MG PATCH 1 PATCH TRANSDERM (09:25)
[2021-10-19] MEDS: ENOXAPARIN 40 MG/0.4 ML SYRINGE SUB-Q (09:25)
--- NOTE | 2021-10-19 10:00 | P.DS_ITS ---
DS: Admitting Diagnosis Discharge Date 10/19/2021 Admitting Diagnosis Cellulitis DS: Discharge Diagnosis Discharge Diagnosis (1) Bilateral cellulitis of lower leg: Code(s): L03.116 - Cellulitis of left lower limb; L03.115 - Cellulitis of right lower limb Status: Acute Assessment and Plan: * Cellulitis ruled out culture preliminary no growth * Cellulitis versus congestive heart failure * Patient currently on vancomycin in Rocephin discontinue * WBC and lactic acid within normal limits * D-dimer and CRP elevated * CTA negative for PE * Dopplers completed on 07/15/2021 no DVT noted * KRISSY completed on 07/15/2021 indicates 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 Stated vascular surgery indicated no intervention needed. 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 Stated vascular surgery indicated no intervention needed. (3) Leg swelling: Code(s): M79.89 - Other specified soft tissue disorders Status: Acute Assessment and Plan: * Secondary to uncompensated congestive heart failure * Patient given a prescription for thigh-high DARON hose (4) Acute kidney injury: Code(s): N17.9 - Acute kidney failure, unspecified Status: Acute Assessment and Plan: * Resolved * Slightly elevated creatinine1.04>1.02>0.85 * Secondary to the use of Lasix * Will closely monitor renal function (5) CHF (congestive heart failure): Code(s): I50.9 - Heart failure, unspecified Status: Acute Assessment and Plan: * Newly diagnosed * Echo indicates diastolic dysfunction * Will discharge home with Flomax awry 40 mg twice daily * Patient instructed to follow-up with primary care physician and surgery aid * Patient educated on heart disease DS: Summary Hospital Course Hospital Course: This is a 41-year-old female who presented to the emergency department with bilateral lower extremity redness and swelling.? Patient has a past medical history of dependent edema and leg swelling.? According to patient back in May she started experiencing bilateral lower extremity swelling along with redness that started on her left leg migrated up her thigh then to her left leg.? Patient noted she proceeded to urgent care who referred her to the ED in the ED she was given antibiotic treatment 10 days patient notes that she completed her therapy.? She notes that her condition had improved after use of antibiotic therapy it worsened again and she went to her primary care physician who gave her another round of antibiotic treatment.? Patient is unsure of what antibiotic she was given.? She also was referred to a vascular surgeon and surgery aid.? Patient did visit the vascular surgeon who did not believe she needed any intervention.? Patient not to her card
--- NOTE | 2021-10-19 10:00 | PM.DS ---
DS: Admitting Diagnosis Discharge Date 10/19/2021 Admitting Diagnosis Cellulitis DS: Discharge Diagnosis Discharge Diagnosis (1) Bilateral cellulitis of lower leg: Code(s): L03.116 - Cellulitis of left lower limb; L03.115 - Cellulitis of right lower limb Status: Acute Assessment and Plan: Cellulitis ruled out culture preliminary no growth Cellulitis versus congestive heart failure Patient currently on vancomycin in Rocephin discontinue WBC and lactic acid within normal limits D-dimer and CRP elevated CTA negative for PE Dopplers completed on 07/15/2021 no DVT noted KRISSY completed on 07/15/2021 indicates 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 Stated vascular surgery indicated no intervention needed. 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 Stated vascular surgery indicated no intervention needed. (3) Leg swelling: Code(s): M79.89 - Other specified soft tissue disorders Status: Acute Assessment and Plan: Secondary to uncompensated congestive heart failure Patient given a prescription for thigh-high DARON hose (4) Acute kidney injury: Code(s): N17.9 - Acute kidney failure, unspecified Status: Acute Assessment and Plan: Resolved Slightly elevated creatinine1.04>1.02>0.85 Secondary to the use of Lasix Will closely monitor renal function (5) CHF (congestive heart failure): Code(s): I50.9 - Heart failure, unspecified Status: Acute Assessment and Plan: Newly diagnosed Echo indicates diastolic dysfunction Will discharge home with Flomax awry 40 mg twice daily Patient instructed to follow-up with primary care physician and library paraprofessional Patient educated on heart disease DS: Summary Hospital Course Hospital Course: This is a 41-year-old female who presented to the emergency department with bilateral lower extremity redness and swelling.? Patient has a past medical history of dependent edema and leg swelling.? According to patient back in May she started experiencing bilateral lower extremity swelling along with redness that started on her left leg migrated up her thigh then to her left leg.? Patient noted she proceeded to urgent care who referred her to the ED in the ED she was given antibiotic treatment 10 days patient notes that she completed her therapy.? She notes that her condition had improved after use of antibiotic therapy it worsened again and she went to her primary care physician who gave her another round of antibiotic treatment.? Patient is unsure of what antibiotic she was given.? She also was referred to a vascular surgeon and library paraprofessional.? Patient did visit the vascular surgeon who did not believe she needed any intervention.? Patient not to her library paraprofessional does not accept her insurance she will need to find a library paraprofessional in her network for a follow-up. Patient. ABIs completed on 07/15/2021 indicate mild arterial occlusion disease to both lower limits with borderline bilateral ABIs and mildly decreased bilateral TBI's. Echo is indicated diastolic dysfunction. Attempts to call patient's primary care physician, BRADEN Grant
--- NOTE | 2021-10-19 11:50 | PC.NURSE ---
Patient ready for discharge. All discharge instructions and education reviewed with patient. Patient states understanding. Denies any questions at this time. IV site removed, tip intact. Dressing applied to site. All belongings gathered and sent home with patient. This nurse accompanied patient to front door, taken down via wheelchair. Patient left in private vehicle, drove her self.
--- NOTE | 2021-10-20 09:06 | PC.NURSE ---
Pt states she received and understood her discharge instructions. Pt also states everyone was great .
== END 2021-10-19 11:50 | disposition home or self-care (01) | DRG 194 ==
LOC: CHSED 10-17 00:15 → CHS2ND 10-17 01:46
PROVIDERS: Nurse Practitioner; Nurse Practitioner Family; Admitting Provider Internal Medicine; Emergency Provider Emergency Medicine; PCP Nurse Practitioner; Visit Provider Internal Medicine
DX: I50.31 Acute diastolic (congestive) heart failure (principal); N17.9 Acute kidney failure, unspecified; I70.90 Unspecified atherosclerosis; F17.210 Nicotine dependence, cigarettes, uncomplicated
CPT/HCPCS: 36415; 71046; 71275; 80053; 80202; 80307; 81003; 82565; 83605; 83735; 83880; 84484; 84703; 85025; 85027; 85380; 85610; 85652; 85730; 86140; 87040; 93005; 96365; 96375; 99285; A9270; C8929; C9803; J0696; J1200; J1650; J1940; J2930; J3370; Q9967; U0003; U0005

== ENCOUNTER 2023-05-24 23:48 | Observation (INO) | payer BC, SELFPAY ==
--- NOTE | ~2023-05-24 | XR_ITS ---
EXAMINATION: XR chest 1V portable DATE: 05/25/2023 00:18 INDICATION: Overdose. TECHNIQUE: A single frontal view of the chest was obtained. COMPARISON: Chest 2 views 10/16/21 FINDINGS: There is no pneumonia, pleural effusion, or pneumothorax. The heart size is normal. IMPRESSION: 1. No acute cardiopulmonary disease. Reviewed, dictated and finalized at location A.
[2023-05-24 23:50] VITALS: BP 72/46; PULSE 77; RESP 8; TEMP 37.1; O2SAT 88
[2023-05-24] MEDS: NALOXONE HCL INJ 2 MG/2 ML AMP IV PUSH (23:54)
[2023-05-24] MEDS: ONDANSETRON INJ 4 MG/2 ML VIAL IV PUSH (23:55)
[2023-05-25] VITALS (33 sets, daily range): BP systolic 73–158; BP diastolic 42–100; PULSE 52–82; RESP 8–22; TEMP 35.8–36.6; O2SAT 94–100; BMI 42.9
--- NOTE | 2023-05-25 00:01 | ED.OVERDOSE ---
HPI - Overdose General Chief Complaint: Overdose Stated Complaint: Overdose Time Seen by Provider: 05/24/23 23:50 Source: patient Mode of arrival: wheelchair Limitations: altered mental status, physical limitation and other History of Present Illness HPI Narrative: this 43-year-old female brought in via private vehicle unresponsive and not breathing. Patient was brought in by private vehicle the car left the scene but mention that she had taken something. Patient received Narcan and did wake up immediately and she said that she took fentanyl and heroin this evening. Initially O2 sats in the 80s and on oxygen currently 96 to 98% with some appears anxious with no fever chills no chest pain no abdominal pain. complaint: accidental overdose Onset (ago): hour(s) Timing confirmed by: other Intent: unknown Related Data Home Medications Medication Instructions Recorded Confirmed gabapentin 600 mg tablet 600 mg PO TID 02/29/20 10/16/21 fluoxetine 20 mg capsule (Prozac) 60 mg PO DAILY 10/17/21 10/17/21 Allergies Allergy/AdvReac Type Severity Reaction Status Date / Time No Known Allergies Allergy Mild Verified 05/25/23 05:15 Review of Systems Review of Systems: All systems reviewed & are unremarkable except as noted in HPI and below PMFSH Past Medical History Medical History Dependent edema Leg swelling Family History Family History Mother Graves disease Acquired lymphedema of leg ALFARO (nonalcoholic steatohepatitis) Social History Social History Smoking packs per day: 1 Smoking cigarettes per day: 20.0 Years smoked: 23 Smoking pack-years: 23.00 Smoking status: Current every day smoker Tobacco type: cigarettes Alcohol intake: never Substance use type: methamphetamine Last use: 10/14/2021 Spiritual care concerns: No Exam Const: General: ill appearing Nutritional Appearance: obese Limitations: altered mental status Eyes: Pupils: Equal, round and reactive pupils present Neck: Neck: normal visual inspection, no lymphadenopathy and no meningeal signs Chest: Chest palpation & inspection: normal inspection of the chest Resp: Effort & Inspection: normal respiratory effort Auscultation: clear to auscultation bilaterally Cardio: Rate: regular rate Rhythm: regular rhythm GI: GI Palp: Yes Soft to palpation Auscultation: normal bowel sounds Skin: General skin exam: normal color Rashes: no rashes Neuro: General: moves all extremities, no meningeal signs and no focal motor deficits Speech: normal speech Extrem: General: normal to inspection and no clubbing, cyanosis or edema Psych: Affect: Anxious affect present Course Course Emergency Course: patient received 4mg of Narcan and patient aroused immediately and responds appropriately appears anxious and crying but otherwise breathing easy currently on any oxygen but saturations are 98 to 100%. Subsequent to Narcan patient did develop some nausea and episode of vomiting and received Zofran. Patient did state that she took fentanyl and heroin without the intent of killing herself. MDM - Overdose Lab Data 05/24/23 00:12 05/24/23 00:12 Labs: Lab Results 05/24/23 05/24/23 05/25/23 Range/Units 00:12 00:28 00:28 WBC 5.7 (4.8-10.8) K/mm3 RBC 4.87 (4.20-5.40) M/mm3 Hgb 13.1 (12.0-15.0) g/dL Hct 42.3 (35.0-49.0) % MCV 86.9 (78.0-102.0) fL MCH 26.9 L (27.0-31.0) pg MCHC 31.0 L (32-36) g/dL RDW 14.0 (11.6-14.4) % Plt Count 162 (150-420) K/mm3 MPV 11.1 (9.2-11.8) fl Immature Gran % (Auto) 0.5 H (0.0-0.0) % Neut % (Auto) 47.9 L (50.0-70.0) % Lymph % (Auto) 40.5 (18.0-42.0) % Rock % (Auto) 6.9 (2.0-11.0) % Eos % (Auto) 3.7 (1.0-6.0) % Baso % (Auto) 0.5 (0.0
[2023-05-25 00:09] LABS: Basophils Absolute Auto 0.03 K/mm3 (0.00-0.10); Basophils Percent Auto 0.5 % (0.0-1.0); Eosinophils Absolute Auto 0.21 K/mm3 (0.02-0.50); Eosinophils Percent Auto 3.7 % (1.0-6.0); Hematocrit 42.3 % (35.0-49.0); Hemoglobin 13.1 g/dL (12.0-15.0); Immature Granulocyte Absolute 0.03 K/mm3 (0.00-0.00); Immature Granulocyte Percent A 0.5 % (0.0-0.0); Lymphocytes Absolute Auto 2.29 K/mm3 (1.10-4.50); Lymphocytes Percent Auto 40.5 % (18.0-42.0); Mean Corpuscular Hemoglobin 26.9 pg (27.0-31.0); Mean Corpuscular Volume 86.9 fL (78.0-102.0); Mean Platelet Volume 11.1 fl (9.2-11.8); Monocytes Absolute Auto 0.39 K/mm3 (0.10-0.90); Monocytes Percent Auto 6.9 % (2.0-11.0); Neutrophils Percent Auto 47.9 % (50.0-70.0); Platelet Count Result 162 K/mm3 (150-420); Red Blood Count 4.87 M/mm3 (4.20-5.40); White Blood Count 5.7 K/mm3 (4.8-10.8)
[2023-05-25 00:20] LABS: Partial Thromboplastin Time 25.9 Sec (23.9-30.70); Prothrombin Time 11.1 Seconds (9.50-12.1)
[2023-05-25] MEDS: NALOXONE HCL INJ 2 MG/2 ML AMP IV PUSH ×2 (00:20→00:28)
[2023-05-25 00:25] LABS: Lactic Acid Reflex 1.2 mmol/L (0.4-2.0)
[2023-05-25 00:26] LABS: Base Excess ABG -3.2 mmol/L (0-2); HCO3 ABG 22.3 mmol/L (23-29); Oxygen Content ABG 17.6 %vol (16.0-22.0); Oxygen Saturation ABG 97.9 % (95-97); PCO2 ABG 41.5 mmHg (35-45); PO2 ABG 119.7 mmHg (80-90); Total Hemoglobin 13.3 g/dL (12.0-18.0); pH ABG 7.35 (7.35-7.45)
[2023-05-25 00:29] LABS: Device SIMPLE MASK; Modified Allen's Test Pass; Site Drawn RIGHT RADIAL
[2023-05-25 00:36] LABS: Acetaminophen < 2 ug/mL (10-30); Alanine Aminotransferase 21 U/L (14-59); Albumin Level 3.7 g/dL (3.4-5.0); Alkaline Phosphatase 60 U/L (46-116); Ammonia 18 umol/L (11-32); Anion Gap 7 mmol/L (8-16); Aspartate Amino Transferase 19 U/L (15-37); Bilirubin,Total 0.2 mg/dL (0.00-1.00); Blood Urea Nitrogen 18 mg/dL (7-18); Calcium 8.3 mg/dL (8.5-10.1); Carbon Dioxide 31 mmol/L (21-32); Chloride 102 mmol/L (98-108); Estimated Glomerular Filt Rate > 60; Ethanol < 3 mg/dL (0-6); Glucose 112 mg/dL (70-99); Magnesium 1.9 mg/dL (1.8-2.4); Osmolality Calculated 292 mOsm/kg (285-295); Potassium 3.8 mmol/L (3.5-5.1); Sodium 140 mmol/L (136-145)
[2023-05-25] MEDS: SODIUM CHLORIDE 0.9% IV 1,000 ML 999 ML IV CONT ×3 (03:04→06:04)
[2023-05-25 04:04] LABS: Influenza A QL RT-PCR Negative (Negative); Influenza B QL RT-PCR Negative (Negative); RSV RNA, RT-PCR Negative (Negative); SARS-CoV-2 RNA PCR Negative (Negative)
[2023-05-25 04:05] LABS: Amphetamine Screen Urine Negative (Negative); Appearance Urine Clear (Clear); Barbiturate Screen Urine Negative (Negative); Benzodiazepines Screen Urine Negative (Negative); Bilirubin Urine 1+ (Negative); Cannabinoid Screen Urine Negative (Negative); Cocaine Screen Urine Positive (Negative); Color Urine Yellow (Yellow); Glucose Urine UA Negative (Negative); Ketones Urine Negative (Negative); Leukocyte Esterase Ur Negative LEU/UL (Negative); Methadone Screen Urine Negative (Negative); Nitrate Urine Negative (Negative); Opiate Screen Urine Negative (Negative); Phencyclidine Screen Urine Negative (Negative); Protein Urine Negative (Negative); Specific Grav Ur >= 1.030 (1.010-1.020); Urobilinogen Urine 0.2 mg/dL (0.2-1.0); pH Urine 5.5 (5.0-8.0)
[2023-05-25 04:06] LABS: Add Urine Microscopic? YES; Bacteria Urine Trace /hpf; Blood Urine Trace-intact (Negative); Squamous Epithelial Cell Urine None seen /hpf (Few); WBC Urine 0-3 /hpf (0-3)
--- NOTE | 2023-05-25 04:52 | PC.NURSE ---
0430- Verbal Orders from Dr. Ramirez to stop the Narcan drip
--- NOTE | 2023-05-25 05:16 | PC.NURSE ---
05/24/23 @0105 Shortly after administration of 2mg Naloxone IVP, pt became more alert and responsive to staff. Pt tearful, stating I wasn't trying to hurt myself, I swear . When asked, pt states that she snorted heroin and cocaine this evening prior to arrival. Pt denies any other drugs tonight. Pt became less responsive shortly thereafter, and two subsequent doses of 2mg IV Narcan were administered before starting the patient on a Narcan Drip.
--- NOTE | 2023-05-25 07:00 | ECHO_ITS ---
Patient Info Name: Meghan Russell Age: 43 years : 1980 Gender: Female Heart Rhythm: Sinus Rhythm Technical Quality: Good Exam Date: 05/25/2023 8:54 AM Exam Location: Echo Lab Patient Status: Inpatient Admit Date: 05/25/2023 Staff Ordering Physician: Brendan Vizcaino APRN Rod Greaser: Tom Amaral RDCS Attending Provider: Jon Hernandez MD Exam Type: CA echo doppler color flow Study Info Complete two-dimensional, color flow and Doppler transthoracic echocardiogram is performed. Summary 1. Complete two-dimensional, color flow and Doppler transthoracic echocardiogram is performed. 2. Left ventricular chamber dimension is normal. 3. Left ventricular systolic function is normal, estimated at 60-65%. 4. The left ventricular diastolic function is abnormal. 5. E/e' 17 is elevated. 6. There is mild mitral valve regurgitation. 7. There is mild tricuspid valve regurgitation. 8. Mild pulmonary hypertension, estimated pulmonary arterial systolic pressure is 40 mmHg. Left Ventricle E/e' 17 is elevated. Left ventricular chamber dimension is normal. Left ventricular systolic function is normal, estimated at 60-65%. The left ventricular diastolic function is abnormal. Right Ventricle Right ventricular systolic function is normal and with normal TAPSE 2.5 cm. Right ventricular chamber dimension is normal. Left Atria Left atrial chamber dimension is normal. Right Atria Right atrial chamber dimension is normal. Aortic Valve The aortic valve is trileaflet. There is no aortic valve stenosis. There is no aortic valve regurgitation. Pulmonic Valve There is no pulmonic regurgitation. Mitral Valve There is no mitral valve stenosis. There is mild mitral valve regurgitation. Tricuspid Valve There is mild tricuspid valve regurgitation. Mild pulmonary hypertension, estimated pulmonary arterial systolic pressure is 40 mmHg. Pericardium/Pleural There is no pericardial effusion. Inferior Vena Cava Normal inferior vena cava with >50% collapse upon inspiration consistent with normal right atrial pressure, 5 mmHg. Aorta The aortic root size at the sinus of Valsalva is normal. Left Ventricular Outflow Tract Name Value Normal LVOT 2D LVOT Diameter 1.9 cm LVOT Doppler LVOT Peak Velocity 98 cm/s LVOT Peak Gradient 4 mmHg LVOT Mean Gradient 3 mmHg LVOT VTI 27 cm LVOT VTI/AV VTI Ratio 1.0 LVOT Stroke Volume 75 ml Pulmonic Valve Name Value Normal RVOT Doppler RVOT Peak Gradient 1 mmHg PV Doppler PV Peak Velocity 57 cm/s PV Peak Gradient 1 mmHg Mitral Valve Name
[2023-05-25] MEDS: SODIUM CHLORIDE 0.9% IV 1,000 ML 150 ML IV CONT ×2 (07:25→17:01)
--- NOTE | 2023-05-25 08:55 | PM.IMHP ---
H&P: HPI History of Present Illness Date/Time: 05/25/23 08:55 Chief Complaint: Overdose, altered LOC Narrative: This is a 43-year-old female patient reports she snorted a large amount of fentanyl last night. Patient reports that she did not want to harm herself but she just wanted her situational pain to feel better. She reports that she lost her job yesterday as well as her significant other and got into a fight with her brother who she had recently reconnected with. Patient reports fentanyl use every day for a significant amount of time. She also acknowledges use of cocaine. Patient does not recall how much mental she used but she thought it was mixed with heroin. In the emergency department patient received multiple doses of Narcan and then was on a Narcan drip for a few hours which improved her level of consciousness. She was hypotensive upon arrival to the ER and has received large amount of IV fluids. Patient has a history of congestive heart failure was previously on furosemide for leg swelling as needed but she no longer takes that medication. She reports she does take Prozac and gabapentin. On exam patient is arousable to voice answers a couple questions and then falls back asleep. This cycle has repeated several times and she was able to force herself more awake in order to complete the majority of history as documented above before drifting off back to sleep. Ordered IV albumin in order to be increase patient's blood pressure. She continues to remain fluid dependent to maintain an adequate blood pressure. Her respiratory status is unremarkable. She is mildly bradycardic and telemetry is applied. Patient emphasized multiple times that she was not attempting to harm herself. At one point it appeared the patient was going to attempt to leave against medical advice but I explained to her the importance of staying for monitoring and she agreed that fell back asleep. Review of Systems Review of Systems: ROS unobtainable: Yes unobtainable due to mental status PMFSH Past Medical History Medical History Dependent edema Leg swelling Family History Family History Mother Graves disease Acquired lymphedema of leg ALFARO (nonalcoholic steatohepatitis) Social History Social History Smoking packs per day: 1.5 Smoking cigarettes per day: 30.0 Years smoked: 20 Smoking pack-years: 30.00 Smoking status: Current every day smoker Tobacco type: cigarettes Alcohol intake: never Substance use type: heroin and opiates Other substance usage details: Fentynal Last use: 10/14/2021 Do You Feel Safe in your Home?: Yes Lack of Transportation: No Lack of Food: Never True Current Housing: I Have Housing Concerned About Future Housing: No Difficulty Paying Gas/Electric Bills: No Difficulty Paying for Meds: No Currently Unemployed: No Education: Associate Degree Difficulty w/ Childcare or Family Care: No Spiritual care concerns: No Meds Home Medications and Allergies Home Medications Medication Instructions Recorded Confirmed Type gabapentin 600 mg tablet 600 mg PO TID 02/29/20 05/25/23 History fluoxetine 20 mg capsule (Prozac) 60 mg PO DAILY 10/17/21 05/25/23 History compress.stocking,knee,reg,lrg #2 ea 10/19/21 05/25/23 Rx Allergies Allergy/AdvReac Type Severity Reaction Status Date / Time No Known Allergies Allergy Mild Verified 05/25/23 05:15 Vital Signs Vital Signs - 24 hr 05/24/23 23:50 05/25/23 00:00 05/25/23 00:15 Temperature 37.1 C Pulse Rate 77 64 82 Respiratory Rate 8 L 14 20 Blood Pressure 72/46 L 73/59 L Pulse Oximetry 88 L 98 100 Oxygen Delivery Room Air Non-Rebreather Mask Non-Rebreather Mask Oxygen Flow Rate 10 10 05/25/23 00:30 05/25/23 01:00 05/25/23 01:15 Temperature
[2023-05-25] MEDS: ALBUMIN HUMAN 25% 25 GM/100 ML 100 ML IVPB ×2 (10:12→11:04)
[2023-05-26] VITALS: BP 131/68; PULSE 68; RESP 18; TEMP 36.6; O2SAT 98
--- NOTE | 2023-05-26 00:30 | PC.NURSE ---
Upon entering pt room, IV beeping and pt sitting on side of bed c milkshake spilled all over floor. Pt apologizing for the mess and stated it slipped off bedside table. Noted that pt had a drawstring hanley/purple bag lying on her bed c unknown amts of objects in it. Also noted cigarettes lying on pt bedside table. Pt told she is not allowed to smoke while in care. Pt states the cigarettes were left her when her brother brought her DQ food in. When asked by this RN what was all in the bag and that I needed to see, pt became defensive stating it's just a lot of food and stuff I've had in there for yrs and don't know what is all in it. This RN took bag from pt and informed her that we needed record of what belongings are in it and that it needs recorded. Pt became upset and said just take it, all of it I don't want it anymore . Noted that there was unknown substances of pills and drugs found in bag c drug paraphanalia present. Entire bag taken from pt room, pt started crying and stating her brother brought the bag in to her tonight and that she didn't know any of that stuff was in it. Pt informed that she is under care for a drug OD and that she will be monitored. Pt agreeable to POC and stating she doesn't want anything to happen to her either. Charge nurse called to room to help take note of belongings and to remove items from pts room. PTs. BP elevated and per order can D/C IVF.
--- NOTE | 2023-05-26 00:40 | PC.NURSE ---
Talked to Adam Peralta NP regarding drug paraphrenlia found in pt's room. Items taken to the med room and locked up.
[2023-05-26 03:17] VITALS: PULSE 54
[2023-05-26 03:50] VITALS: BP 132/82; PULSE 62; RESP 20; TEMP 36.6; O2SAT 95
--- NOTE | 2023-05-26 07:19 | PM.DS ---
DS: Admitting Diagnosis Discharge Date 05/26/2023 Admitting Diagnosis accidental fentanyl overdose, drug abuse, CHF DS: Discharge Diagnosis Discharge Diagnosis (1) Overdose: Qualifiers: Encounter type: initial encounter Injury intent: accidental or unintentional Qualified Code(s): T50.901A - Poisoning by unspecified drugs, medicaments and biological substances, accidental (unintentional), initial encounter Code(s): T50.901A - Poisoning by unspecified drugs, medicaments and biological substances, accidental (unintentional), initial encounter Status: Acute (2) Drug abuse: Code(s): F19.10 - Other psychoactive substance abuse, uncomplicated Status: Acute (3) CHF (congestive heart failure): Qualifiers: Heart failure type: diastolic Heart failure chronicity: acute on chronic Qualified Code(s): I50.33 - Acute on chronic diastolic (congestive) heart failure Code(s): I50.9 - Heart failure, unspecified Status: Acute DS: Summary Hospital Course Hospital Course: This is a 43-year-old female patient admitted to the hospital through the emergency department with altered level of consciousness and reported fentanyl overdose. Patient insistent that it was an accidental overdose without intent to harm herself. Initially patient had received multiple doses of Narcan and even a Narcan drip in the emergency department was then admitted to the floor where she remained altered level of consciousness for a total 24 hours. Overnight last night patient was found to have a backpack in her that was not present on admission. Nursing staff removed this from the room and found suspected illicit substances. The substances were removed and returned over to the local police department for disposal. This morning on my exam patient is awake alert oriented apologetic and states that she is wanting to get help rehabilitation. I updated her on various resources including arc on exam not emesis and inpatient drug rehab through [facility]. Status at Discharge Cognitive/behavioral status at discharge: Awake alert oriented apologetic Functional status at discharge: independent ambulation Overall status at discharge: patient is back to baseline Time Spent with Patient Time attestation: Total time spent providing and/or coordinating discharge services: 35 minutes Time spent: Greater than 30 minutes Exam Narrative: GENERAL: Well-appearing, well-nourished, and in no acute distress. HEAD: Normocephalic, atraumatic. ENT:? Mucous membranes moist. CHEST: Clear to auscultation.? No respiratory distress. HEART: Regular rate and rhythm. ? Normal peripheral pulses. ABDOMEN: Soft, nontender, nondistended. EXTREMITIES: Normal range of motion. bilateral lower extremity 2+ peripheral edema. SKIN: Warm dry normal color NEURO: Alert and oriented x3. PSYCH: Normal mood and affect DS: Data Data Completed and Pending Completed studies during hospitalization: chest x-ray Discharge Plan Discharge Attending physician on discharge: Jon Hernandez Discharging Clinician: Brendan Vizcaino Anticipated Discharge Date/Time: 05/26/23 12:00 Patient Disposition: Home, Self-Care Activity: as tolerated Diet: heart healthy and low sodium Discharge Instructions: Stop using drugs Start taking your fluoxetine, furosemide (Lasix) and potassium again. ?Call [facility] to ask about inpatient drug rehab options. [phone] Patient Instructions: Furosemide (By mouth), Heart Failure (DC), Polysubstance Use Disorder (DC), Narcotic Withdrawal (DC), Narcotic Use Disorder (DC) Stand Alone Forms: General Discharge Information Follow-up/Referrals: Brendan,Juanita, LIZBETH-BC [Primary Care Provider] - Follow Up with Primary Dr (Call for follow up appointment as soon as possible) Discharge Medications: New furosemide 40 mg tablet 40 mg PO DAILY Qty: 30 0RF potassium chloride [Penny M
[2023-05-26 07:30] VITALS: BP 158/90; PULSE 60; PULSE 95; RESP 18; TEMP 36.4; O2SAT 98
[2023-05-26] MEDS: POTASSIUM CHLORIDE 20 MEQ ER TABLET PO (10:05)
[2023-05-26] MEDS: FUROSEMIDE 40 MG TABLET PO (10:05)
[2023-05-26 10:58] VITALS: BP 152/81; PULSE 63; RESP 20; TEMP 36.9; O2SAT 98
--- NOTE | 2023-05-26 11:39 | PC.NURSE ---
Addendum entered by Daren Crane RN 05/26/23 11:41: change time to 1120 for original noted. Original Note: all discharge instructions given to pt. voiced understanding. pt alert and oriented. no complaints voiced. pt per wheelchair with this com writer to personal vehicle with brother driving. pt able to get up in truck unassisted. pt departed facility with all belongings and informed of items given to [place] police department.
--- NOTE | 2023-05-26 11:42 | PC.NURSE ---
0855 drug pipe, straw, pink bag, pillow, and unknown white substance given to [place] police liaison milla. per moreno james , charge nurse
--- NOTE | 2023-05-28 09:23 | PC.NURSE ---
discharge call back attempted, no answer
--- NOTE | 2023-05-31 09:50 | PC.NURSE ---
discharge call back attempted, no answer
--- NOTE | 2023-06-05 13:57 | PC.NURSE ---
Unable to reach for dc call back
== END 2023-05-26 11:20 | disposition home or self-care (01) ==
LOC: CHSED 05-25 06:00 → CHS2ND 05-25 07:00
PROVIDERS: Admitting Provider Internal Medicine; Emergency Provider Emergency Medicine; PCP Nurse Practitioner; Visit Provider Internal Medicine
DX: T40.411A Poisoning by fentanyl or fentanyl analogs, accidental (unintentional), initial encounter (principal); I50.33 Acute on chronic diastolic (congestive) heart failure; R40.4 Transient alteration of awareness; I08.1 Rheumatic disorders of both mitral and tricuspid valves; I27.20 Pulmonary hypertension, unspecified; Z20.822 Contact with and (suspected) exposure to COVID-19; F17.210 Nicotine dependence, cigarettes, uncomplicated; E66.9 Obesity, unspecified; Z68.41 Body mass index [BMI] 40.0-44.9, adult; F11.10 Opioid abuse, uncomplicated; F14.90 Cocaine use, unspecified, uncomplicated; Z79.899 Other long term (current) drug therapy
CPT/HCPCS: 36415; 36600; 71045; 80053; 80307; 81001; 82140; 82805; 83605; 83735; 85025; 85610; 85730; 87637; 93005; 93306; 96374; 96375; 99285; A9270; G0378; J2310; J2405; J7030; J7050; P9047

== ENCOUNTER 2024-03-13 22:12 | Observation (INO) | payer BC, SELFPAY ==
--- NOTE | ~2024-03-13 | XR_ITS ---
XR chest 1V portable Ordering provider: Clay Smith DO History: 44 years Female with . LEG SWELLING/CHF . Comparison: May 25, 2023 FINDINGS: MEDIASTINUM: The cardiac silhouette is slightly enlarged. Slightly congestive luis manuel. LUNGS: No infiltrates, effusions or pneumothorax. Minimal bilateral interstitial thickening. OTHER: No free air under the diaphragm. IMPRESSION: Slight cardiomegaly with congestive luis manuel and bilateral interstitial thickening which may indicate car diac decompensation and pulmonary edema. Pneumonitis is also possible. Clinical correlation advised. Reviewed, dictated and finalized at location A. WORKER IMPRESSION: Slight cardiomegaly with congestive luis manuel and bilateral interstitial thickening which may indicate cardiac decompensation and pulmonary edema. Pneumonitis is a lso possible. Clinical correlation advised.
--- NOTE | ~2024-03-13 | US_ITS ---
EXAMINATION: US venous doppler [facility] DATE: 03/14/2024 09:19 INDICATION: Lower limb swelling. TECHNIQUE: Grayscale ultrasound images without and with compression and Doppler ultrasound images of the bilateral lower extremity veins were obtained. COMPARISON: Ultrasound 07/15/2021 FINDINGS: The visualized portions of right common femoral vein, profunda (deep) femoral vein, femoral vein, pop liteal vein, peroneal veins, posterior tibial veins, and greater saphenous vein outflow are patent. The visualized portions of left common femoral vein, profunda femoral vein, femoral vein, popliteal v ein, peroneal veins, posterior tibial veins, and greater saphenous vein outflow are patent. IMPRESSION: 1. No deep venous thrombosis. Reviewed, dictated and finalized at location A. [employer]ORAL HE[employer] AIDE
[2024-03-13 22:20] VITALS: BP 149/71; PULSE 98; RESP 18; TEMP 36.6; O2SAT 98
--- NOTE | 2024-03-13 22:27 | ECG_ITS ---
Test Date: 2024-03-13 22:58:58 Measurements Intervals [place] Rate: 83 P: 52 WV: 167 QRS: 31 QRSD: 94 T: 41 QT: 368 QTc: 434 Interpretive Statements SINUS RHYTHM No previous ECG available for comparison Electronically Signed On 03-14-2024 12:29:19 [employer] by Ginny Damian M.D.
--- NOTE | 2024-03-13 22:28 | ED_ITS ---
HPI - General Adult General Chief complaint: Skin/Abscess/Foreign Body Stated complaint: lower leg cellulitis Time Seen by Provider: 03/13/24 22:22 History of Present Illness HPI narrative: Meghan is a 44F with a PMH of anxiety, depression, recurrent cellulitis and CHF that presented to the ED with concerns of worsening swelling and erythema in her lower extremities. She started a 10 day course of abx on 02/26 but was not compliant with meds. After stopping the meds she had a return of the redness in her legs L>R with edema. She also endorses some dyspnea, but no CP, nausea, or vomiting. Related Data Home Medications ?Medication ?Instructions ?Recorded ?Confirmed ?Last Taken ?Type aripiprazole 15 mg tablet 15 mg PO DAILY 03/13/24 03/13/24 Unknown History buspirone 5 mg tablet 5 mg PO TID PRN depression 03/13/24 03/13/24 Unknown History gabapentin 600 mg tablet 600 mg PO TID 03/13/24 03/13/24 Unknown History venlafaxine 150 mg 150 mg PO QPM 03/13/24 03/13/24 Unknown History capsule,extended release 24 hr Allergies Allergy/AdvReac Type Severity Reaction Status Date / Time No Known Allergies Allergy Mild Verified 05/25/23 05:15 Review of Systems 2 Review of Systems: All systems reviewed & are unremarkable except as noted in HPI and below PMFSH Past Medical History Medical History Dependent edema Leg swelling Family History Family History Mother Graves disease Acquired lymphedema of leg ALFARO (nonalcoholic steatohepatitis) Social History Social History Smoking packs per day: 1.5 Smoking cigarettes per day: 30.0 Years smoked: 20 Smoking pack-years: 30.00 Smoking status: Current every day smoker Tobacco type: cigarettes Alcohol intake: never Substance use type: heroin and opiates Other substance usage details: Fentynal Last use: 10/14/2021 Do You Feel Safe in your Home?: Yes Lack of Transportation: No Lack of Food: Never True Current Housing: I Have Housing Concerned About Future Housing: No Difficulty Paying Gas/Electric Bills: No Difficulty Paying for Meds: No Currently Unemployed: No Education: Associate Degree Difficulty w/ Childcare or Family Care: No Spiritual care concerns: No Exam 2 Const: General: cooperative, healthy appearing, comfortable, no acute distress, well developed, alert, awake and Physically active O rientation/consciousness: oriented to person, oriented to place and oriented to time HENMT: Head: normal to inspection, normocephalic and atraumatic Ears: h earing grossly normal bilaterally and external ears normal Face/Nose/Sinus: N ormal external nose present Eyes: General: appearance normal, both eyes and all related structures P eriorbital: periorbital findings normal Sclera: sclerae normal Pupils: E qual, round and reactive pupils present Neck: Neck: normal visual inspection Chest: Chest palpation & inspection: normal inspection of the chest Resp: Effort & Inspection: normal respiratory effort, able to speak in complete sentences and no respiratory distress Other: Bibasilar crackles Cardio: Jugular venous distension: no JVD Rate: regular rate Rhythm: r egular rhythm GI: Inspection: normal to inspection GI Palp: Yes Soft to palpation A uscultation: normal bowel sounds Skin: General skin exam: normal color and no rashes or lesions noted Neuro: General: oriented to person, oriented to place and oriented to time Cranial nerves: Yes Equal, round and reactive pupils present Extrem: General: normal to inspection Other: erythema on her lower extremities bilaterally L>R with 3+ pitting edema up to the tibial plateau. Course Course Emergency Course: EKG showed NSR with a rate of 83, normal axis, no ST elevation/depression Labs showed slight leukopenia, mild anemia, elevated BNP and CRP XR chest 1V portable Ordering provider: Clay Smith DO History: 44 years Female with . LEG SWELLING/CHF . Comparison: May 25, 2023 FINDINGS: MEDIASTINUM: The cardiac silhouette is slightly enlarged. Slightly congestive luis manuel. LUNGS: No infiltrates, effusions or pneumothorax. Minimal bilateral interstitial thickening. OTHER: No free air under the diaphragm. IMPRESSION: Slight cardiomegaly with congestive luis manuel and bilateral interstitial thickening which may indicate cardiac decompensation and pulmonary edema. Pneumonitis is also possible. Clinical correlation advised. Given she failed outpatient treatment and appears to be developing CHF exacerbation will admit for IV abx and IV diuresis Vital Signs Vital signs: Vital Signs Temperature 97.9 F 03/13/24 22:20 Pulse Rate 98 03/13/24 22:20 Respiratory Rate 18 03/13/24 22:20 Blood Pressure 149/71 H 03/13/24 22:20 Pulse Oximetry 98 03/13/24 22:20 Oxygen Delivery Room Air 03/13/24 22:20 Temperature 97.9 F 03/13/24 22:20 Pulse Rate 98 03/13/24 22:20 Respiratory Rate 18 03/13/24 22:20 Blood Pressure 149/71 H 03/13/24 22:20 Pulse Oximetry 98 03/13/24 22:20 Oxygen Delivery Room Air 03/13/24 22:20 Medical Decision Making Vital Signs Vital Signs: Vital Signs Temperature 97.9 F 03/13/24 22:20 Pulse Rate 98 03/13/24 22:20 Respiratory Rate 18 03/13/24 22:20 Blood Pressure 149/71 H 03/13/24 22:20 Pulse Oximetry 98 03/13/24 22:20 Oxygen Delivery Room Air 03/13/24 22:20 Temperature 97.9 F 03/13/24 22:20 Pulse Rate 98 03/13/24 22:20 Respiratory Rate 18 03/13/24 22:20 Blood Pressure 149/71 H 03/13/24 22:20 Pulse Oximetry 98 03/13/24 22:20 Oxygen Delivery Room Air 03/13/24 22:20 Lab Data 03/13/24 22:41 03/13/24 22:41 Labs: Lab Results 03/13/24 Range/Units 22:41 WBC 4.6 L (4.8-10.8) K/mm3 RBC 3.77 L (4.20-5.40) M/mm3 Hgb 10.1 L (12.0-15.0) g/dL Hct 32.3 L (35.0-49.0) % MCV 85.7 (78.0-102.0) fL MCH 26.8 L (27.0-31.0) pg MCHC 31.3 L (32-36) g/dL RDW 15.3 H (11.6-14.4) % Plt Count 201 (150-420) K/mm3 MPV 11.0 (9.2-11.8) fl Immature Gran % (Auto) 0.4 H (0.0-0.0) % Neut % (Auto) 59.3 (50.0-70.0) % Lymph % (Auto) 25.8 (18.0-42.0) % [place] % (Auto) 8.9 (2.0-11.0) % Eos % (Auto) 5.4 (1.0-6.0) % Baso % (Auto) 0.2 (0.0-1.0) % Lymph # (Auto) 1.19 (1.10-4.50) K/mm3 [place] # (Auto) 0.41 (0.10-0.90) K/mm3 Eos # (Auto) 0.25 (0.02-0.50) K/mm3 Baso # (Auto) 0.01 (0.00-0.10) K/mm3 Abs Immat Gran (auto) 0.02 H (0.00-0.00) K/mm3 Absolute Neuts (auto) 2.73 (1.70-7.20) K/mm3 Absolute Nucleated RBC 0.00 (0.00-0.00) K/mm3 Nucleated RBC % 0.0 (0-0.0) % Sodium Pending Potassium Pending Chloride Pending Carbon Dioxide Pending Anion Gap Pending BUN Pending Creatinine Pending Estim Creat Clear Calc Pending Estimated GFR Pending Glucose Pending Hemoglobin A1c 5.1 (<5.7) % Calculated Osmolality Pending Calcium Pending Magnesium Pending Total Bilirubin Pending AST Pending ALT Pending Alkaline Phosphatase Pending Troponin I Pending C-Reactive Protein Pending NT-Pro-B Natriuret Pep Pending Total Protein Pending Albumin Pending Discharge Plan Discharge Clinical Impression: CHF (congestive heart failure) Qualifiers: Heart failure type: diastolic Heart failure chronicity: acute on chronic Q ualified Code(s): I50.33 - Acute on chronic diastolic (congestive) heart failure Cellulitis Qualifiers: Site of cellulitis: extremity Site of cellulitis of extremity: lower extremity Laterality: left Qualified Code(s): L03.116 - Cellulitis of left lower limb Patient Disposition: [facility] Condition: Serious Patient Language: [place] Prescriptions: No Action furosemide 40 mg tablet 40 mg PO DAILY Qty: 30 0RF potassium chloride [Klor-Con M20] 20 mEq tablet,ER particles/crystals 20 meq PO DAILY Qty: 30 0RF aripiprazole 15 mg tablet 15 mg PO DAILY buspirone 5 mg tablet 5 mg PO TID PRN (Reason: depression) gabapentin 600 mg tablet 600 mg PO TID venlafaxine 150 mg capsule,extended release 24hr 150 mg PO QPM (DME) compress.stocking,knee,reg,lrg Misc See Rx Instructions .Route Qty: 2 0RF Rx Instructions: As directed thigh high Follow-up/Referrals: UNKNOWN,DOCTOR [Non-Staff] -
[2024-03-13] MEDS: CEFEPIME 1 GM/NS 50 ML 1 GM/50 ML BAG IVPB (22:59)
[2024-03-13] MEDS: FUROSEMIDE INJ 40 MG/4 ML VIAL IV PUSH (22:59)
[2024-03-13 23:00] LABS: Basophils Absolute Auto 0.01 K/mm3 (0.00-0.10); Basophils Percent Auto 0.2 % (0.0-1.0); Eosinophils Absolute Auto 0.25 K/mm3 (0.02-0.50); Eosinophils Percent Auto 5.4 % (1.0-6.0); Hematocrit 32.3 % (35.0-49.0); Hemoglobin 10.1 g/dL (12.0-15.0); Immature Granulocyte Absolute 0.02 K/mm3 (0.00-0.00); Immature Granulocyte Percent A 0.4 % (0.0-0.0); Lymphocytes Absolute Auto 1.19 K/mm3 (1.10-4.50); Lymphocytes Percent Auto 25.8 % (18.0-42.0); Mean Corpuscular HGB Conc 31.3 g/dL (32-36); Mean Corpuscular Hemoglobin 26.8 pg (27.0-31.0); Mean Corpuscular Volume 85.7 fL (78.0-102.0); Monocytes Absolute Auto 0.41 K/mm3 (0.10-0.90); Monocytes Percent Auto 8.9 % (2.0-11.0); Neutrophils Absolute Auto 2.73 K/mm3 (1.70-7.20); Neutrophils Percent Auto 59.3 % (50.0-70.0); Platelet Count Result 201 K/mm3 (150-420); Red Blood Count 3.77 M/mm3 (4.20-5.40); Red Cell Distribution Width 15.3 % (11.6-14.4); White Blood Count 4.6 K/mm3 (4.8-10.8)
[2024-03-13] MEDS: HYDROcodone/acetaminophen (*CRX) 5-325 MG TABLET 1 TAB PO (23:05)
[2024-03-13 23:08] LABS: Hemoglobin A1C 5.1 % (<5.7)
[2024-03-13 23:21] LABS: Alanine Aminotransferase 26 U/L (14-59); Albumin Level 3.3 g/dL (3.4-5.0); Alkaline Phosphatase 99 U/L (46-116); Anion Gap 5 mmol/L (4-12); Aspartate Amino Transferase 23 U/L (15-37); Bilirubin,Total 0.4 mg/dL (0.00-1.00); Blood Urea Nitrogen 14 mg/dL (7-18); CRP 1.5 mg/dL (0.0-0.9); Calcium 8.4 mg/dL (8.5-10.1); Carbon Dioxide 33 mmol/L (21-32); Chloride 101 mmol/L (98-108); Estimated CRCL calculation 87 ml/min; Estimated Glomerular Filt Rate > 60; Glucose 115 mg/dL (70-99); Magnesium 1.7 mg/dL (1.8-2.4); NT Pro B Type Natriuretic Pept 218 pg/mL (0-125); Osmolality Calculated 289 mOsm/kg (285-295); Potassium 4.4 mmol/L (3.5-5.1); Sodium 139 mmol/L (136-145); Total Protein 6.6 g/dL (6.4-8.2)
[2024-03-13 23:39] VITALS: BP 126/52; PULSE 75; PULSE 84; RESP 18; RESP 19; O2SAT 97
[2024-03-13 23:42] LABS: Amphetamine Screen Urine Positive (Negative); Barbiturate Screen Urine Negative (Negative); Benzodiazepines Screen Urine Negative (Negative); Cannabinoid Screen Urine Negative (Negative); Cocaine Screen Urine Positive (Negative); Methadone Screen Urine Negative (Negative); Opiate Screen Urine Negative (Negative); Phencyclidine Screen Urine Negative (Negative)
--- NOTE | 2024-03-13 23:44 | PC.NURSE ---
Dr Smith spoke w/ pt and POC to admit for 23 hr obs. Call placed to floor and spoke to electric system operator Holly, will call back w/ bed assignment.
--- NOTE | 2024-03-13 23:48 | PC.NURSE ---
Pt will be admitted to Rm 204, VSS.
[2024-03-13 23:55] VITALS: BMI 49.0
[2024-03-14] VITALS: BP 135/75; PULSE 84; RESP 19; TEMP 36.6; O2SAT 97
--- NOTE | 2024-03-14 00:09 | PC.NURSE ---
Pt taken via w/c w/ tech for admit to Rm 204.
[2024-03-14 00:10] VITALS: BP 135/63; PULSE 80; RESP 18; O2SAT 99
--- NOTE | 2024-03-14 00:25 | ADMGEN ---
This patient, Meghan Russell, was admitted to 2nd Floor Room 204-1. Patient/family oriented to hospital policies and general routines including ID bracelet, bed and alarms, visiting hours, pain management, procedures, bathroom and other care routines, personal items, smoking policy, room service/diet, and visiting hours. Information on how to activate the Rapid Response Team has been discussed. Patient/Family are encouraged to report perceived risks to care and to ask questions if they do not understand what they are told or what they should do.
[2024-03-14] MEDS: VANCOMYCIN 1,500 MG/NS 500 ML 1,500 MG/500 ML BAG 250 MG IVPB (00:56)
[2024-03-14 04:00] VITALS: PULSE 83
[2024-03-14 06:17] LABS: Estimated CRCL calculation 91 ml/min; Estimated Glomerular Filt Rate > 60
[2024-03-14 08:00] VITALS: BP 136/88; PULSE 72; PULSE 86; RESP 18; TEMP 36.8; O2SAT 94
[2024-03-14 08:18] LABS: Hematocrit 34.1 % (35.0-49.0); Hemoglobin 10.5 g/dL (12.0-15.0); Mean Corpuscular HGB Conc 30.8 g/dL (32-36); Mean Corpuscular Hemoglobin 26.4 pg (27.0-31.0); Mean Corpuscular Volume 85.7 fL (78.0-102.0); Mean Platelet Volume 11.4 fl (9.2-11.8); Platelet Count Result 229 K/mm3 (150-420); Red Blood Count 3.98 M/mm3 (4.20-5.40); Red Cell Distribution Width 15.6 % (11.6-14.4); White Blood Count 5.2 K/mm3 (4.8-10.8)
[2024-03-14 08:27] LABS: Alanine Aminotransferase 29 U/L (14-59); Albumin Level 3.4 g/dL (3.4-5.0); Alkaline Phosphatase 93 U/L (46-116); Anion Gap 5 mmol/L (4-12); Aspartate Amino Transferase 25 U/L (15-37); Bilirubin,Total 0.4 mg/dL (0.00-1.00); Blood Urea Nitrogen 14 mg/dL (7-18); Calcium 8.4 mg/dL (8.5-10.1); Carbon Dioxide 32 mmol/L (21-32); Chloride 102 mmol/L (98-108); Estimated CRCL calculation 89 ml/min; Estimated Glomerular Filt Rate > 60; Glucose 89 mg/dL (70-99); Magnesium 1.9 mg/dL (1.8-2.4); Osmolality Calculated 287 mOsm/kg (285-295); Potassium 4.2 mmol/L (3.5-5.1); Sodium 139 mmol/L (136-145); Total Protein 6.7 g/dL (6.4-8.2)
[2024-03-14] MEDS: GABAPENTIN 300 MG CAPSULE 600 MG PO ×3 (09:43→17:00)
[2024-03-14] MEDS: ARIPiprazole 5 MG TABLET 15 MG PO (09:44)
[2024-03-14] MEDS: POTASSIUM CHLORIDE 20 MEQ ER TABLET PO (09:45)
[2024-03-14] MEDS: ceFAZolin 1 GM/NS 50 ML 1 GM/50 ML BAG IVPB ×2 (10:06→17:07)
--- NOTE | 2024-03-14 11:00 | P.HP_ITS ---
H&P: HPI History of Present Illness Date/Time: 03/14/24 11:00 Chief Complaint: BLE redness and swelling Narrative: patient is a 44-year-old female who presented to the emergency department with worsening bilateral lower extremity swelling and redness. Patient stated he she was started on oral antibiotics outpatient on February 20 however did not take her medications as directed and was noncompliant, presents today with worsening symptoms. patient has known history depression, illicit drug use, and diastolic heart failure. patient's labs reviewed and unremarkable however drug screen was positive for amphetamines and cocaine, vitals stable venous Dopplers were performed which were negative for DVTs, and blood cultures were pending. patient was admitted for further evaluation treatment of bilateral extremity cellulitis and started on IV antibiotics due to failure outpatient oral antibiotics at this time from noncompliance. patient also has some noted crackles at lower lobe bases CXR showing slight cardiomegaly with some pulmonary edema. she was given IV Lasix x1 dose in the emergency department and continued inpatient. Review of Systems Review of Systems: All systems reviewed & are unremarkable except as noted in HPI and below PMFSH Past Medical History Medical History Essential hypertension (06/24/12) Depression (12/09/10) Dependent edema Leg swelling Family History Family History Mother Graves disease Acquired lymphedema of leg ALFARO (nonalcoholic steatohepatitis) Social History Social History Smoking packs per day: 1 Smoking cigarettes per day: 20.0 Years smoked: 30 Smoking pack-years: 30.00 Smoking status: Current every day smoker Tobacco type: cigarettes Second hand tobacco smoke exposure: Yes Alcohol intake: former Substance use: former Substance use type: crack/cocaine and amphetamines Other substance usage details: Cindaynjosé miguel Last use: 10/14/2021 Do You Feel Safe in your Home?: Yes Lack of Transportation: YES Lack of Food: Never True Current Housing: I Have Housing Concerned About Future Housing: No Difficulty Paying Gas/Electric Bills: No Difficulty Paying for Meds: No Currently Unemployed: No Education: Trade/Vocational Certificate Difficulty w/ Childcare or Family Care: No Spiritual care concerns: No Meds Home Medications and Allergies Home Medications ?Medication ?Instructions ?Recorded ?Confirmed ?Type compress.stocking,knee,reg,lrg #2 ea 10/19/21 03/14/24 Rx furosemide 40 mg tablet 40 mg PO DAILY #30 tabs 05/26/23 03/14/24 Rx potassium chloride 20 mEq 20 meq PO DAILY #30 tabs 05/26/23 03/14/24 Rx tablet,extended release(part/cryst) (Klor-Con M) aripiprazole 15 mg tablet 15 mg PO DAILY 03/13/24 03/14/24 History buspirone 5 mg tablet 5 mg PO TID PRN depression 03/13/24 03/14/24 History gabapentin 600 mg tablet 600 mg PO TID 03/13/24 03/14/24 History venlafaxine 150 mg 150 mg PO QPM 03/13/24 03/14/24 History capsule,extended release 24 hr Allergies Allergy/AdvReac Type Severity Reaction Status Date / Time No Known Allergies Allergy Mild Verified 05/25/23 05:15 Vital Signs Vital Signs - 24 hr 03/13/24 22:20 03/13/24 23:39 03/13/24 23:39 Temperature 97.9 F Pulse Rate 98 75 84 Respiratory Rate 18 18 19 Blood Pressure 149/71 H 126/52 L Pulse Oximetry 98 97 97 Oxygen Delivery Room Air Room Air Room Air 03/14/24 00:00 03/14/24 00:10 03/14/24 04:00 Temperature 97.8 F Pulse Rate 84 80 83 Respiratory Rate 19 18 Blood Pressure 135/75 135/63 Pulse Oximetry 97 99 Oxygen Delivery Room Air Room Air 03/14/24 08:00 03/14/24 08:00 Temperature 98.2 F Pulse Rate 86 72 Respiratory Rate 18 Blood Pressure 136/88 Pulse Oximetry 94 Oxygen Delivery Room Air Exam Narrative: * GENERAL: Alert and oriented x 3 female. No acute distress. * EYES: EOMI. No scleral icterus. PERRLA. * HEENT: Moist mucous membranes. * LUNGS: Clear to auscultation bilaterally. No accessory muscle use. * CARDIOVASCULAR: Regular rate and rhythm. No murmur. No JVD. S1-S2 * ABDOMEN: Soft, non tenderness and non-distended. No palpable masses. * EXTREMITIES: Bilateral 3+ non-pitting edema and erythema no wounds or ulcerations * SKIN: No rashes or lesions. Skin warm, dry. * NEUROLOGIC: No focal neurological deficits. CN II-XII grossly intact * PSYCHIATRIC: tearful mood and affect. poor judgement and insight. H&P: Results Labs Labs: Short CBC 03/13/24 03/14/24 Range/Units 22:41 05:41 WBC 4.6 L 5.2 (4.8-10.8) K/mm3 Hgb 10.1 L 10.5 L (12.0-15.0) g/dL Hct 32.3 L 34.1 L (35.0-49.0) % Plt Count 201 229 (150-420) K/mm3 BMP 03/13/24 03/14/24 03/14/24 22:41 05:41 05:41 Sodium 139 139 Potassium 4.4 4.2 Chloride 101 102 Carbon Dioxide 33 H 32 BUN 14 14 Creatinine 0.97 0.92 0.94 Glucose 115 H 89 Calcium 8.4 L 8.4 L Cardiac Enzymes 03/13/24 Range/Units 22:41 Troponin I 5.0 (0.00-60.4) ng/L Liver Function 03/13/24 03/14/24 Range/Units 22:41 05:41 Total Bilirubin 0.4 0.4 (0.00-1.00) mg/dL AST 23 25 (15-37) U/L ALT 26 29 (14-59) U/L Alkaline Phosphatase 99 93 (46-116) U/L Albumin 3.3 L 3.4 (3.4-5.0) g/dL Imaging Venous US: Radiologist's impression: FINDINGS: The visualized portions of right common femoral vein, profunda (deep) femoral vein, femoral vein, popliteal vein, peroneal veins, posterior tibial veins, and greater saphenous vein outflow are patent. The visualized portions of left common femoral vein, profunda femoral vein, femoral vein, popliteal vein, peroneal veins, posterior tibial veins, and greater saphenous vein outflow are patent. IMPRESSION: 1. No deep venous thrombosis. Assessment and Plan Assessment and plan (1) Bilateral cellulitis of lower leg: Code(s): L03.116 - Cellulitis of left lower limb; L03.115 - Cellulitis of right lower limb Status: Acute Assessment and Plan: Patient was started on oral ABX outpatient 02/26 but was non-compliant returns with edema and erythema to BLE. Patient reported drug use but denied any IV drug use * Blood cultures pending * Imaging: Venous dopplers no DVT * Cefazolin IV/d/c vancomycin * Monitor IV hydration. * A1c 5.1 * pain control (2) CHF (congestive heart failure): Qualifiers: Heart failure chronicity: acute on chronic Heart failure type: diastolic Qualified Code(s): I50.33 - Acute on chronic diastolic (congestive) heart failure Code(s): I50.9 - Heart failure, unspecified Status: Acute Assessment and Plan: Patient with recent history of diastolic CHF non-compliant with PO lasix at home, presented with 3+ non-pitting edema BLE and SOB * IV Lasix b.i.d. will resume 40mg PO lasix at discharge * monitor renal function during diuresis * previous echocardiogram Diastolic grade 1 LVEF 60-65% 05/2023 * chest x-ray: Slight cardiomegaly with congestive luis manuel and bilateral interstitial thickening which may indicate cardiac decompensation and pulmonary edema. Pneumonitis is also possible * Will have follow-up with cardiology outpatient, reports was suppose to in may but never went * Daily weight. * elevate legs * Optimize blood pressure less than 130/80. (3) Drug abuse: Code(s): F19.10 - Other psychoactive substance abuse, uncomplicated Status: Acute Assessment and Plan: Reported Crack/ Amphetamine/ cocaine use drug screen was positive for amphetamines and cocaine * encouraged immediate cessation * monitor for withdrawal * Xanax t.i.d. p.r.n. for any anxiety or withdrawal (4) Depression: Onset Date: 12/09/10 Code(s): F32.A - Depression, unspecified Status: Acute Assessment and Plan: * Resume home medications * recommended follow-up outpatient with psychiatrist or therapist * also encouraged support groups Plan Code status: Full code per patient DVT prophylaxis: Lovenox Stress ulcer prophylaxis: Protonix 40 daily PT/OT notes: Ambulatory Disposition: patient continues admission to the medical unit for bilateral lower extremity cellulitis we will continue with IV antibiotics at this time also being treated for acute on chronic diastolic heart failure 3+ nonpitting edema to lower extremities will continue with IV Lasix patient reports noncompliance medication at home. plan is for patient to return to home when medically stable Quality VTE Prophylaxis VTE prophylaxis: pharmacologic ordered -Patient's previous records reviewed on admission -ER notes reviewed in detail on admission -discussed all findings and current treatment plan with patient/Family/POA -Consultations reviewed for recommendations -Patient's disposition for safe discharge discussed with oil field caser Dictation performed by [employer] direct speech recognition software, therefore disk and tape machine tender variants and typographical errors may occur. Hospitalist ELODIA Advance Care Plan I have confirmed that the patient's Advanced Care Plan is present, code status is documented, or surrogate decision maker is listed in patient medical record.: Yes Medication Reconciliation I have utilized all available resources to obtain, update and review the patients current medications (includes all prescriptions, OTC, herbals, cannabis, and nutritional supplements).: Yes The patient is not eligible for med reconciliation; the patient is in a emergent medical situation where delaying treatment would jeopardize the patients health.: No
[2024-03-14] MEDS: HYDROcodone/acetaminophen (*CRX) 5-325 MG TABLET 1 TAB PO ×2 (11:55→17:06)
[2024-03-14] MEDS: busPIRone HCL 5 MG TABLET PO (15:39)
[2024-03-14 15:52] VITALS: BP 119/70; PULSE 84; RESP 16; TEMP 36.6; O2SAT 95
[2024-03-14] MEDS: VENLAFAXINE HCL XR 75 MG CAP.ER.24H 150 MG PO (17:01)
[2024-03-14] MEDS: FUROSEMIDE INJ 40 MG/4 ML VIAL IV PUSH (17:01)
[2024-03-15] VITALS: BP 125/76; PULSE 78; RESP 16; TEMP 36.8; O2SAT 97
[2024-03-15] MEDS: ceFAZolin 1 GM/NS 50 ML 1 GM/50 ML BAG IVPB ×2 (00:24→09:20)
[2024-03-15 05:21] LABS: Hematocrit 32.3 % (35.0-49.0); Hemoglobin 10.4 g/dL (12.0-15.0); Mean Corpuscular HGB Conc 32.2 g/dL (32-36); Mean Corpuscular Hemoglobin 27.2 pg (27.0-31.0); Mean Corpuscular Volume 84.6 fL (78.0-102.0); Mean Platelet Volume 10.7 fl (9.2-11.8); Platelet Count Result 188 K/mm3 (150-420); Red Blood Count 3.82 M/mm3 (4.20-5.40); Red Cell Distribution Width 15.5 % (11.6-14.4); White Blood Count 4.5 K/mm3 (4.8-10.8)
[2024-03-15 05:38] LABS: Alanine Aminotransferase 22 U/L (14-59); Albumin Level 2.9 g/dL (3.4-5.0); Alkaline Phosphatase 78 U/L (46-116); Anion Gap 4 mmol/L (4-12); Aspartate Amino Transferase 20 U/L (15-37); Bilirubin,Total 0.4 mg/dL (0.00-1.00); Blood Urea Nitrogen 16 mg/dL (7-18); Calcium 8.3 mg/dL (8.5-10.1); Carbon Dioxide 32 mmol/L (21-32); Chloride 105 mmol/L (98-108); Estimated CRCL calculation 90 ml/min; Estimated Glomerular Filt Rate > 60; Glucose 86 mg/dL (70-99); Osmolality Calculated 292 mOsm/kg (285-295); Sodium 141 mmol/L (136-145); Total Protein 6.1 g/dL (6.4-8.2)
[2024-03-15 08:00] VITALS: BP 135/66; PULSE 92; RESP 20; TEMP 36.5; O2SAT 95
--- NOTE | 2024-03-15 09:17 | P.DS_ITS ---
DS: Admitting Diagnosis Discharge Date 03/15/2024 Admitting Diagnosis cellulitis bilateral lower extremities/ CHF exacerbation DS: Discharge Diagnosis Discharge Diagnosis (1) Bilateral cellulitis of lower leg: Code(s): L03.116 - Cellulitis of left lower limb; L03.115 - Cellulitis of right lower limb Status: Acute Assessment and Plan: * discharged on oral Keflex * encourage elevation of legs at rest (2) CHF (congestive heart failure): Qualifiers: Heart failure type: diastolic Heart failure chronicity: acute on chronic Qualified Code(s): I50.33 - Acute on chronic diastolic (congestive) heart failure Code(s): I50.9 - Heart failure, unspecified Status: Acute Assessment and Plan: * continue with home dose 40 of Lasix * elevate legs when at rest * low-sodium diet * compression stockings when cellulitis has resolved * follow-up with cardiology outpatient (3) Drug abuse: Code(s): F19.10 - Other psychoactive substance abuse, uncomplicated Status: Acute Assessment and Plan: Reported Crack/ Amphetamine/ cocaine use drug screen was positive for amphetamines and cocaine * encouraged immediate cessation (4) Depression: Onset Date: 12/09/10 Code(s): F32.A - Depression, unspecified Status: Acute Assessment and Plan: * Resume home medications * recommended follow-up outpatient with psychiatrist or therapist * also encouraged support groups Plan Disposition: discharged home DS: Summary Hospital Course Reason for hospitalization: cellulitis of lower extremities/ CHF exacerbation Hospital Course: patient was a 44-year-old female who presented to the emergency department with worsening bilateral lower extremity swelling and redness. Patient stated he she was started on oral antibiotics outpatient on February 20 however did not take her medications as directed and was noncompliant, presents today with worsening symptoms. patient has known history depression, illicit drug use, and diastolic heart failure. patient's labs reviewed and unremarkable however drug screen was positive for amphetamines and cocaine, vitals stable venous Dopplers were performed which were negative for DVTs, and blood cultures with no growth. Patient also has some noted crackles at lower lobe bases CXR showing slight cardiomegaly with some pulmonary edema. she was given IV Lasix x1 dose in the emergency department and continued inpatient. patient was then started on IV cefazolin and IV Lasix patient had overall improvement bilateral swelling decreased and erythema improved patient remained afebrile continued with normal WBC. crackles to lung resolved with IV Lasix patient was then discharged to home on oral Keflex for 6 more days and transitioned back to her Lasix which she was encouraged medication compliance. patient has worsened follow-up cardiology outpatient encouraged immediate illicit drug cessation and to seek out support groups for her depression. patient acknowledged and agreed discharge plan and she was discharged home. Status at Discharge Functional status at discharge: independent ambulation Overall status at discharge: patient is progressing back to baseline Time Spent with Patient Time attestation: Total time spent providing and/or coordinating discharge services: Time spent: Greater than 30 minutes Exam Narrative: * GENERAL: Alert and oriented x 3 female. No acute distress. * EYES: EOMI. No scleral icterus. PERRLA. * HEENT: Moist mucous membranes. * LUNGS: Clear to auscultation bilaterally. No accessory muscle use. * CARDIOVASCULAR: Regular rate and rhythm. No murmur. No JVD. S1-S2 * ABDOMEN: Soft, non tenderness and non-distended. No palpable masses. * EXTREMITIES: Bilateral 3+ non-pitting edema and erythema no wounds or ulcera tions improving 2+ edema and erythema * SKIN: No rashes or lesions. Skin warm, dry. * NEUROLOGIC: No focal neurological deficits. CN II-XII grossly intact * PSYCHIATRIC: tearful mood and affect. poor judgement and insight. DS: Data Data Completed and Pending Labs on day of discharge: Labs from last 24 hours 03/15/24 05:11 WBC 4.5 L RBC 3.82 L Hgb 10.4 L Hct 32.3 L MCV 84.6 MCH 27.2 MCHC 32.2 RDW 15.5 H Plt Count 188 MPV 10.7 Sodium 141 Potassium 4.0 Chloride 105 Carbon Dioxide 32 Anion Gap 4 BUN 16 Creatinine 0.93 Estim Creat Clear Calc 90 Estimated GFR > 60 Glucose 86 Calculated Osmolality 292 Calcium 8.3 L Total Bilirubin 0.4 AST 20 ALT 22 Alkaline Phosphatase 78 Total Protein 6.1 L Albumin 2.9 L Imaging Radiologist's impression: Comparison: May 25, 2023 FINDINGS: MEDIASTINUM: The cardiac silhouette is slightly enlarged. Slightly congestive luis manuel. LUNGS: No infiltrates, effusions or pneumothorax. Minimal bilateral interstitial thickening. OTHER: No free air under the diaphragm. IMPRESSION: Slight cardiomegaly with congestive luis manuel and bilateral interstitial thickening which may indicate cardiac decompensation and pulmonary edema. Pneumonitis is also possible. Clinical correlation advised. EXAMINATION: US venous doppler LE DATE: 03/14/2024 09:19 INDICATION: Lower limb swelling. TECHNIQUE: Grayscale ultrasound images without and with compression and Doppler ultrasound images of the bilateral lower extremity veins were obtained. COMPARISON: Ultrasound 07/15/2021 FINDINGS: The visualized portions of right common femoral vein, profunda (deep) femoral vein, femoral vein, popliteal vein, peroneal veins, posterior tibial veins, and greater saphenous vein outflow are patent. The visualized portions of left common femoral vein, profunda femoral vein, femoral vein, popliteal vein, peroneal veins, posterior tibial veins, and greater saphenous vein outflow are patent. IMPRESSION: 1. No deep venous thrombosis. Discharge Plan Discharge Attending physician on discharge: Jon Hernandez Discharging Clinician: Daysi Arshad Patient Disposition: Home, Self-Care Activity: may shower and as tolerated Diet: heart healthy Discharge Instructions: Cellulitis bilateral lower extremities * I have prescribed Oral Keflex please complete as directed even if symptoms i mprove and you are feeling better * elevate legs when at rest * I encourage medication compliance diastolic heart failure/lower extremity swelling * Resume 40mg Lasix daily as prescribed * Medication compliance encouraged * elevate legs * may use compression stockings when cellulitis resolves I encourage immediate illicit drug cessation How can you care for yourself at home? ? Keep track of any new symptoms or changes in your symptoms. ? Rest until you feel better. ? Be safe with medicines. Take your medicines exactly as prescribed. Call your doctor if you think you are having a problem with your medicine. ? Do not drive after taking a prescription pain medicine. ? Ensure to follow-up with primary care physician as indicated and provide updated medication list provided to you at discharge. When should you call for help? Call 911 anytime you think you may need emergency care. For example, call if: ? You passed out (lost consciousness). Call your doctor now or seek immediate medical care if: ? You have new symptoms like fever, difficulty breathing, Chest pain, vomiting, or rash. ? You have new or different pain. ? You are confused and are having trouble thinking clearly. ? Your symptoms are getting worse. Watch closely for changes in your health, and be sure to contact your doctor if: ? You do not get better as expected. Patient Instructions: Antibiotic Form, Heart Failure (DC), Cellulitis (GEN), Low-Sodium Diet (DC) Patient Language: Wolof Stand Alone Forms: General Discharge Information Follow-up/Referrals: Lb,Jayant Dexter, HOSTESS [Primary Care Provider] - 4 Weeks Discharge Medications: New cephalexin 500 mg capsule 500 mg PO Q6H Qty: 24 0RF Continued potassium chloride [Klor-Con M20] 20 mEq tablet,ER particles/crystals 20 meq PO DAILY Qty: 30 0RF aripiprazole 15 mg tablet 15 mg PO DAILY buspirone 5 mg tablet 5 mg PO TID PRN (Reason: depression) gabapentin 600 mg tablet 600 mg PO TID venlafaxine 150 mg capsule,extended release 24hr 150 mg PO QPM furosemide 40 mg tablet 40 mg PO DAILY Qty: 30 0RF (DME) compress.stocking,knee,reg,lrg Misc See Rx Instructions .Route Qty: 2 0RF Rx Instructions: As directed thigh high Date of admission: 03/13/24 23:38 Primary Care Provider: LbJayant Admitting Provider: Jon Hernandez Attending physician on admission: Daysi Arshad Condition: Stable Quality VTE Prophylaxis VTE prophylaxis: pharmacologic ordered -Patient's previous records reviewed on admission -ER notes reviewed in detail on admission -discussed all findings and current treatment plan with patient/Family/POA -Consultations reviewed for recommendations -Patient's disposition for safe discharge discussed with case therapist Dictation performed by [employer]olio direct speech recognition software, therefore animal groomer variants and typographical errors may occur. Hospitalist MIPS Heart Failure (Exclusion) Patient has history of Heart Transplant or Left Ventricular Assistive Device?: No IF YES, STOP HERE Heart Failure (Qualifier) Patient has current or prior documentation of LVEF less than or equal to 40%, or mod/servere depressed LVSF?: No IF NO, STOP HERE
[2024-03-15] MEDS: FUROSEMIDE INJ 40 MG/4 ML VIAL IV PUSH (09:22)
[2024-03-15] MEDS: ARIPiprazole 5 MG TABLET 15 MG PO (09:28)
[2024-03-15] MEDS: GABAPENTIN 300 MG CAPSULE 600 MG PO (09:28)
[2024-03-15] MEDS: POTASSIUM CHLORIDE 20 MEQ ER TABLET PO (09:28)
--- NOTE | 2024-03-15 10:45 | PC.NURSE ---
Discharge instructions reviewed with patient. Patient verbalizes understanding. Patient taken off floor per wheelchair
== END 2024-03-15 10:45 | disposition home or self-care (01) ==
LOC: CHSED 23:26 → CHS2ND 03-14 07:05
PROVIDERS: Admitting Provider Internal Medicine; Emergency Provider Family Medicine; PCP Nurse Practitioner Family; Visit Provider Nurse Practitioner Family
DX: L03.116 Cellulitis of left lower limb (principal); L03.115 Cellulitis of right lower limb; I11.0 Hypertensive heart disease with heart failure; I50.33 Acute on chronic diastolic (congestive) heart failure; F15.10 Other stimulant abuse, uncomplicated; F14.10 Cocaine abuse, uncomplicated; F17.210 Nicotine dependence, cigarettes, uncomplicated; F32.A Depression, unspecified; F41.9 Anxiety disorder, unspecified; Z91.148 Patient's other noncompliance with medication regimen for other reason; Z79.899 Other long term (current) drug therapy
CPT/HCPCS: 36415; 71045; 80053; 80307; 82565; 83036; 83735; 83880; 84484; 85025; 85027; 86140; 87040; 93005; 93970; 96365; 96366; 96367; 96374; 96375; 99285; A9270; G0378; G0379; J0690; J0692; J1940; J3370

== ENCOUNTER 2024-08-30 23:17 | Emergency (ER) | payer BC, SELFPAY ==
[2024-08-30 23:19] VITALS: BP 170/94; PULSE 104; RESP 18; TEMP 36; O2SAT 98
--- NOTE | 2024-08-30 23:25 | ED_ITS ---
HPI - Dental/Oral General Chief complaint: Dental/Oral Stated complaint: skin issue Time Seen by Provider: 08/30/24 23:22 Source: patient Mode of arrival: ambulatory Limitations: no limitations History of Present Illness HPI Narrative: patient is a 44-year-old female that presents with dental pain and is currently on antibiotic, having right facial swelling with no fever chills, does have warmth redness to her left lower extremity with no shortness of breath no calf pain or tenderness no nausea no abdominal pain no chest pain. MD Complaint: tooth pain Teeth map: 2 1. dental abscess with surrounding gum inflammation Onset (ago): day(s) Severity: mild Severity scale (1-10): 4 Relieving factors: NSAIDs Associated symptoms: gum swelling Related Data Home Medications ?Medication ?Instructions ?Recorded ?Confirmed ?Last Taken ?Type aripiprazole 15 mg tablet 15 mg PO DAILY 03/13/24 03/14/24 03/13/24 20:00 History 15 mg buspirone 5 mg tablet 5 mg PO TID PRN depression 03/13/24 03/14/24 03/13/24 20:00 History 5 mg gabapentin 600 mg tablet 600 mg PO TID 03/13/24 03/14/24 03/13/24 20:00 History 600 mg venlafaxine 150 mg 150 mg PO QPM 03/13/24 03/14/24 03/13/24 20:00 History capsule,extended release 24 hr 150 mg Allergies Allergy/AdvReac Type Severity Reaction Status Date / Time No Known Allergies Allergy Mild Verified 08/30/24 23:28 Review of Systems 2 Review of Systems: All systems reviewed & are unremarkable except as noted in HPI and below PMFSH Past Medical History Medical History Essential hypertension (06/24/12) Depression (12/09/10) Dependent edema Leg swelling Family History Family History Mother Graves disease Acquired lymphedema of leg ALFARO (nonalcoholic steatohepatitis) Social History Social History Smoking packs per day: 1 Smoking cigarettes per day: 20.0 Years smoked: 30 Smoking pack-years: 30.00 Smoking status: Current every day smoker Tobacco type: cigarettes Second hand tobacco smoke exposure: Yes Alcohol intake: former Substance use: former Substance use type: crack/cocaine and amphetamines Other substance usage details: Fentynal Last use: 10/14/2021 Do You Feel Safe in your Home?: Yes Lack of Transportation: YES Lack of Food: Never True Current Housing: I Have Housing Concerned About Future Housing: No Difficulty Paying Gas/Electric Bills: No Difficulty Paying for Meds: No Currently Unemployed: No Education: Trade/Vocational Certificate Difficulty w/ Childcare or Family Care: No Spiritual care concerns: No Exam 2 Const: General: healthy appearing and no acute distress Nutritional Appearance: obese Orientation/consciousness: patient oriented x3 L imitations: no limitations HENMT: Other: Right facial swelling with right lower dental abscess with surrounding gum inflammation Eyes: Conjunctivae: conjunctivae normal Neck: Neck: normal visual inspection, no meningeal signs and lymphadenopathy Chest: Chest palpation & inspection: normal inspection of the chest Resp: Effort & Inspection: normal respiratory effort Auscultation: clear to auscultation bilaterally Cardio: Rate: regular rate Rhythm: regular rhythm GI: GI Palp: Yes Soft to palpation Auscultation: normal bowel sounds : General: Yes bladder normal to palpation Skin: Wounds: wounds noted Other: left lower leg erythema anterior lower leg that is warm red and tender to touch Neuro: General: patient oriented x3, moves all extremities, no meningeal signs and no focal motor deficits Extrem: General: edema Course Course Emergency Course: patient currently on amoxicillin via a telemedicine evaluation advised patient to discontinue that and given a dose of Augmentin and naproxen that would benefit dental abscess and lower extremity cellulitis. Vital Signs Vital signs: Vital Signs Temperature 36.0 C L 08/30/24 23:19 Pulse Rate 104 H 08/30/24 23:19 Respiratory Rate 18 08/30/24 23:19 Blood Pressure 170/94 H 08/30/24 23:19 Pulse Oximetry 98 08/30/24 23:19 Oxygen Delivery Room Air 08/30/24 23:19 Temperature 36.0 C L 08/30/24 23:19 Pulse Rate 104 H 08/30/24 23:19 Respiratory Rate 18 08/30/24 23:19 Blood Pressure 170/94 H 08/30/24 23:19 Pulse Oximetry 98 08/30/24 23:19 Oxygen Delivery Room Air 08/30/24 23:19 Critical Care Time Critical Care Time Critical Care Time: No Discharge Plan Discharge Clinical Impression: Dental abscess, Cellulitis and abscess of left leg Patient Disposition: Home Condition: Stable Instructions: Antibiotic Form, Dental Abscess (ED), Cellulitis (ED) Additional Instructions: advised to discontinue amoxicillin and start Augmentin in the morning, take neck prox in twice daily with meals and follow with primary care if symptoms persist or worsen. Patient Language: Citizen Of [place] Prescriptions: New amoxicillin-pot clavulanate [Augmentin] 500-125 mg tablet 1 tablet PO Q12H Qty: 20 0RF naproxen 500 mg tablet 500 mg PO BID Qty: 14 0RF No Action potassium chloride [Klor-Con M20] 20 mEq tablet,ER particles/crystals 20 meq PO DAILY Qty: 30 0RF aripiprazole 15 mg tablet 15 mg PO DAILY buspirone 5 mg tablet 5 mg PO TID PRN (Reason: depression) gabapentin 600 mg tablet 600 mg PO TID venlafaxine 150 mg capsule,extended release 24hr 150 mg PO QPM cephalexin 500 mg capsule 500 mg PO Q6H Qty: 24 0RF furosemide 40 mg tablet 40 mg PO DAILY Qty: 30 0RF (DME) compress.stocking,knee,reg,lrg Misc See Rx Instructions .Route Qty: 2 0RF Rx Instructions: As directed thigh high Follow-up/Referrals: UNKNOWN,DOCTOR [Primary Care Provider] - Stand Alone Forms: Work/School Release IP Time of Disposition: 23:31
[2024-08-30] MEDS: AMOXICILLIN/CLAVULANATE K 875-125 MG TAB 1 TABLET PO (23:32)
[2024-08-30] MEDS: NAPROXEN 250 MG TABLET 500 MG PO (23:32)
== END 2024-08-30 23:51 | disposition home or self-care (01) ==
PROVIDERS: Emergency Provider Emergency Medicine; PCP Nurse Practitioner Family
DX: K04.7 Periapical abscess without sinus (principal); L03.116 Cellulitis of left lower limb; I10 Essential (primary) hypertension; F17.210 Nicotine dependence, cigarettes, uncomplicated
CPT/HCPCS: 99283; A9270

== ENCOUNTER 2024-09-25 18:27 | Emergency (ER) | payer BC, SELFPAY ==
[2024-09-25 18:28] VITALS: BP 156/83; PULSE 71; RESP 16; TEMP 35.5; O2SAT 99
--- OUTSIDE RECORDS SUMMARY | 2024-09-25 18:29 | XMS_ITS | Clinical Summary ---
Author Organization [facility] Address [facility] [place] [address] Care Team Providers Care Body Die Maker Name Role Phone Chelsey Howard DARIAN Primary Care Provider Social History Tobacco Use Types Packs/Day Years Used Date Smoking Tobacco: Never Assessed Comments Unknown Sex and Gender Information Value Date Recorded Sex Assigned at Not on file Legal Sex Female 5:33 PM CDT Gender Identity Not on file Sexual Orientation Not on file Plan of Treatment Health Maintenance Due Date Last Done Comments Cervical Cancer Screening Pa p Smear (Age 30 to 64) Every 3 Years 1979 Colorectal Cancer Screening Colonoscopy (10 Years) 1979 Annual Physical 1982 Hepatitis C 1997 DTaP, Tdap and Td Vaccines ( 1 - Tdap) 1998 Hepatitis B Vaccines (1 of 3 - 19+ 3-dose series) 1998 Cervical Cancer Screening Pa p with HPV Testing (Age 30 to 64) Every 5 Years 2009 Cervical Cancer Screening with HPV 2009 Mammogram Screening 2019 COVID-19 Vaccine (2023-2 5 season) 2023 HPV Vaccines Aged Out No longer eligi ble based on patient's age to complete this topic Meningococcal B Vaccine Aged Out No l onger eligible based on patient's age to complete this topic Meningococcal Vaccine Aged Out No los jennifer eligible based on patient's age to complete this topic Pneumococcal Vaccine: Pediat rics (0 to 5 Years) and At-Risk Patients (6 to 49 Years) Aged Out No longer eligible b ased on patient's age to complete this topic RSV Immunizations Under 20 Months Aged Out No longer eligible based on patient's age to complete this topic Insurance [facility] C/O PROVIDER SERVICES [employer]CH [id number] Care Teams Body Die Maker Relationship Specialty Start Date End Date Chelsey Howard APNP [address] [facility] [id number] MALIK [place] [id number] PCP - General FAMILY PRACTICE 11/22/23
--- OUTSIDE RECORDS SUMMARY | 2024-09-25 18:29 | XMS_ITS | Encounter Summary ---
Author Organization [facility] Address [facility] [place] [address] Care Team Providers Care Roving Department Supervisor Name Role Phone Chelsey Howard Primary Care Provider Encounter Details Date Type Department Care Team (Late st Contact Info) Description 08/17/2018 Abstract SFL CONVERSION [address] [place] [address] , Generic Conversion, Social History Tobacco Use Types Packs/Day Years Used Date Smoking Tobacco: Never Assessed Comments Unknown Sex and Gender Information Value Date Recorded Sex Assigned at Not on file Legal Sex Female 5:33 PM CDT Gender Identity Not on file Sexual Orientation Not on file documented as of this encounter Plan of Treatment Not on file documented as of this encounter Visit Diagnoses Not on filedocumented in this encounter Care Teams Roving Department Supervisor Relationship Specialty Start Date End Date Chelsey Howard APNP [address] [facility] [id number] [address] PCP - General FAMILY PRACTICE 11/22/23 documented as of this encounter
--- NOTE | 2024-09-25 18:32 | ED_ITS ---
HPI - Dental/Oral General Chief complaint: Dental/Oral Stated complaint: tooth infection Time Seen by Provider: 09/25/24 18:32 dental pain, right lower side started 2 days ago, getting worse and swelling. She denies any fever, chills, trouble swallowing or breathing or headache. History of recurrent dental infection, does not have a dentist. Source: patient Mode of arrival: ambulatory Limitations: no limitations History of Present Illness Teeth map: 2 1. severe dental decay of the lower frontal teeth, no other tooth available in the oral cavity. Related Data Home Medications ?Medication ?Instructions ?Recorded ?Confirmed ?Last Taken ?Type aripiprazole 15 mg tablet 15 mg PO DAILY 03/13/24 03/14/24 03/13/24 20:00 History 15 mg buspirone 5 mg tablet 5 mg PO TID PRN depression 03/13/24 03/14/24 03/13/24 20:00 History 5 mg gabapentin 600 mg tablet 600 mg PO TID 03/13/24 03/14/24 03/13/24 20:00 History 600 mg venlafaxine 150 mg 150 mg PO QPM 03/13/24 03/14/24 03/13/24 20:00 History capsule,extended release 24 hr 150 mg Allergies Allergy/AdvReac Type Severity Reaction Status Date / Time No Known Allergies Allergy Mild Verified 09/25/24 18:33 Review of Systems 2 Review of Systems: All systems reviewed & are unremarkable except as noted in HPI and below PMFSH Past Medical History Medical History Essential hypertension (06/24/12) Depression (12/09/10) Dependent edema Leg swelling Family History Family History Mother Graves disease Acquired lymphedema of leg ALFARO (nonalcoholic steatohepatitis) Social History Social History Smoking packs per day: 1 Smoking cigarettes per day: 20.0 Years smoked: 30 Smoking pack-years: 30.00 Smoking status: Current every day smoker Tobacco type: cigarettes Second hand tobacco smoke exposure: Yes Alcohol intake: former Substance use: former Substance use type: crack/cocaine and amphetamines Other substance usage details: Fentynal Last use: 10/14/2021 Do You Feel Safe in your Home?: Yes Lack of Transportation: YES Lack of Food: Never True Current Housing: I Have Housing Concerned About Future Housing: No Difficulty Paying Gas/Electric Bills: No Difficulty Paying for Meds: No Currently Unemployed: No Education: Trade/Vocational Certificate Difficulty w/ Childcare or Family Care: No Spiritual care concerns: No Course Vital Signs Vital signs: Vital Signs Temperature 35.5 C L 09/25/24 18:28 Pulse Rate 71 09/25/24 18:28 Respiratory Rate 16 09/25/24 18:28 Blood Pressure 156/83 H 09/25/24 18:28 Pulse Oximetry 99 09/25/24 18:28 Oxygen Delivery Room Air 09/25/24 18:28 Temperature 35.5 C L 09/25/24 18:28 Pulse Rate 71 09/25/24 18:28 Respiratory Rate 16 09/25/24 18:28 Blood Pressure 156/83 H 09/25/24 18:28 Pulse Oximetry 99 09/25/24 18:28 Oxygen Delivery Room Air 09/25/24 18:28 Discharge Plan Discharge Clinical Impression: Abscess, dental Patient Disposition: Home Condition: Stable Instructions: Antibiotic Form, Dental Abscess (ED) Additional Instructions: Return if symptoms are worsening , call your dentist as soon as possible for appointment, take Tylenol as as needed for aches and pain, continue home medications. Patient Language: Khmer Prescriptions: New penicillin V potassium 500 mg tablet 500 mg PO Q6H Qty: 40 0RF metronidazole 500 mg tablet 500 mg PO Q8H 7 Days Qty: 21 0RF ibuprofen 800 mg tablet 800 mg PO TID PRN (Reason: pain) Qty: 20 0RF No Action potassium chloride [Klor-Con M20] 20 mEq tablet,ER particles/crystals 20 meq PO DAILY Qty: 30 0RF aripiprazole 15 mg tablet 15 mg PO DAILY buspirone 5 mg tablet 5 mg PO TID PRN (Reason: depression) gabapentin 600 mg tablet 600 mg PO TID venlafaxine 150 mg capsule,extended release 24hr 150 mg PO QPM cephalexin 500 mg capsule 500 mg PO Q6H Qty: 24 0RF furosemide 40 mg tablet 40 mg PO DAILY Qty: 30 0RF amoxicillin-pot clavulanate [Augmentin] 500-125 mg tablet 1 tablet PO Q12H Qty: 20 0RF naproxen 500 mg tablet 500 mg PO BID Qty: 14 0RF (DME) compress.stocking,knee,reg,lrg Misc See Rx Instructions .Route Qty: 2 0RF Rx Instructions: As directed thigh high Follow-up/Referrals: Clay Smith DO [Primary Care Provider] -
--- OUTSIDE RECORDS SUMMARY | 2024-09-25 19:03 | XMS_ITS | Clinical Summary ---
Author Organization [facility] Address [facility] [place] [address] Care Team Providers Care Fiber Optic Central Office Installer Name Role Phone Chelsey Howard ADRIAN Primary Care Provider [phone] Social History Tobacco Use Types Packs/Day Years [...] patient's age to complete this topic Insurance [facility] C/O PROVIDER SERVICES [employer] [id number] Care Teams Fiber Optic Central Office Installer Relationship Specialty Start Date End Date Chelsey Howard APNP [address] [facility] [id number] MALIK [place] [address] PCP - General FAMILY PRACTICE 11/22/23
--- OUTSIDE RECORDS SUMMARY | 2024-09-25 19:03 | XMS_ITS | Encounter Summary ---
Author Organization [facility] Address [facility] [place] [address] Care Team Providers Care Operations Developer Name Role Phone Chelsey Howard Primary Care Provider [phone] Encounter Details Date Type Department Care Team (Late st Contact Info) Description 08/17/2018 Abstract SFL CONVERSION [address] [place] [address] , Generic Conversion, Social History Tobacco Use [...] on filedocumented in this encounter Care Teams Operations Developer Relationship Specialty Start Date End Date Chelsey Howard APNP [address] [facility] [id number] [address] PCP - General FAMILY PRACTICE 11/22/23 documented as of this encounter
[2024-09-25] MEDS: HYDROcodone/acetaminophen (*CRX) 5-325 MG TABLET 1 TAB PO (19:04)
[2024-09-25] MEDS: IBUPROFEN 400 MG TABLET 800 MG PO (19:05)
== END 2024-09-25 19:21 | disposition home or self-care (01) ==
LOC: CHSED 19:02
PROVIDERS: Emergency Provider Emergency Medicine; Referring Provider Family Medicine
DX: K04.7 Periapical abscess without sinus (principal); I10 Essential (primary) hypertension; F17.210 Nicotine dependence, cigarettes, uncomplicated
CPT/HCPCS: 99283; A9270

== ENCOUNTER 2025-01-05 14:36 | Emergency (ER) | payer BC, SELFPAY ==
--- OUTSIDE RECORDS SUMMARY | 2024-07-22 13:00 | XMS_ITS ---
Author Organization [facility] Address [address] [place] [address] Care Team Providers Care Merchandise Worker Name Role Phone [facility] Unavailable [phone] REASON FOR VISIT F/U GLP1 Lab results Encounters Encounter Location Date Provider Diagnosis [facility] [address] [place] [address] 07/22/2024 [facility] Plan Of Treatment No Information Progress Notes * Meghan RUSSELLDOB:1980 ( 44 yo F)Acc No.[id number]:07/22/2024 Progress Notes Patient: Meghan COBIAN Provider: Peyman TERAN :1980 A ge:44 Y S ex:Female Date:07/22/2024 Phone: Address:[address] [place], [place] [phone] Subjective: * Chief Complaints: * 1 . F/U GLP1 Lab results. * Medical History: Objective: * Vitals: Assessment: Plan: * Treatment: * Billing Information: * Visit Code: * Procedure Codes: * Electronic signature of [facility] on 01/05/2025 at 05:17 PM EDT Sign off status: Pending * Provider: Peyman NAIK [place] Date: 0 07/22/2024 Generated for Denton skelton/Pernell/eTnevillesmitting on: 1 05:17 PM EDT
[2025-01-05] VITALS (17 sets, daily range): BP systolic 118–175; BP diastolic 83–99; PULSE 93; RESP 18; TEMP 36.7; O2SAT 92–100
--- NOTE | ~2025-01-05 | CT_ITS ---
EXAMINATION: CT orbit BI wo con DATE: 01/05/2025 15:35 INDICATION: Left eye orbital cellulitis TECHNIQUE: Computed tomography (CT) of the orbits was performed without intravenous contrast. Coronal reconstructions were obtained. Automated exposure control and iterative reconstruction technique were employed. The dose-length product was 173.13 mGy-cm. COMPARISON: None. FINDINGS: Mild left preseptal and infraorbital soft tissue swelling with subcutaneous edema. Left orbit is otherwise unremarkable with no post septal inflammatory stranding. Right orbit is normal. Mild mucosal thickening the right ethmoid sinus and at the entrance to the right sphenoid sinus. Remainder the paranasal sinuses are clear as are the visualized portions of the mastoid air cells and bilateral middle ear cavities. 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 Mild leftward bowing of the nasal septum. Bones are otherwise unremarkable. IMPRESSION: 1. Mild left periorbital cellulitis with preseptal but no post septal stranding. Reviewed, dictated and finalized at location A. IMPRESSION: 1. Mild left periorbital cellulitis with preseptal but no post septal stranding .
--- NOTE | 2025-01-05 14:45 | ED_ITS ---
HPI - Eye Problem General Chief complaint: Eye Problems Stated complaint: left eye pain with swelling Time Seen by Provider: 01/05/25 14:45 Source: patient Mode of arrival: ambulatory Limitations: no limitations History of Present Illness HPI Narrative: Patient is a 44-year-old female with a 2 day history of a left eye pain and a localized redness of the eyelids. She has worsening symptoms over the last 2 days. There has pain of the eyeball with movement. She has the eyelid mostly swollen shut with pus. chief complaint: eye pain (Left out) and other (Eyelid swelling and pain with redness and pus/left side) Onset (ago): day(s) (2) Onset description: gradual Duration: constant Location: left eye Eye Symptoms: burning, redness, pain, discharge, decreased vision, blurry vision and photophobia Place: home Mechanism: none Severity: moderate Severity scale (1-10): 5 If Pain, Quality: sharp and throbbing Context: other (Patient has a 2 day history of worsening left eyeball pain and localized redness of the eyelids with closure of the eye due to swelling and pus) Associated symptoms: other (None) Treatments Prior to Arrival: none Related Data Allergies Allergy/AdvReac Type Severity Reaction Status Date / Time No Known Allergies Allergy Mild Verified 01/05/25 14:38 Review of Systems 2 Review of Systems: All systems reviewed & are unremarkable except as noted in HPI and below Constitutional: Constitutional: Reports no additional constitutional complaints Eyes: Eyes: Reports no additional eye complaints ENT: Reports system reviewed and no additional complaints, except as documented Cardiovascular: Cardiovascular: Reports no additional cardiovascular complaints Respiratory: Respiratory: Reports no additional respiratory complaints Gastrointestinal: Gastrointestinal: Reports no additional gastrointestinal complaints Genitourinary: Genitourinary: Reports no additional female genitourinary complaints Musculoskeletal: Musculoskeletal: Reports no additional musculoskeletal complaints Integumentary/Breasts: Skin/Breast: Reports system reviewed and no additional complaints, except as docu Neurologic: Reports system reviewed and no additional complaints, except as documented Psychiatric: Psychiatric: Reports no additional psychiatric complaints Endocrine: Endocrine: Reports no additional endocrine complaints Hematologic/Lymphatic: Hematologic/Lymphatic: Reports no additional hematologic/lymphatic complaints Allergic/Immunologic: Allergic/Immunologic: Reports no additional allergic/immunologic complaints PMFSH Past Medical History Medical History Essential hypertension (06/24/12) Depression (12/09/10) Dependent edema Leg swelling Family History Family History Mother Graves disease Acquired lymphedema of leg ALFARO (nonalcoholic steatohepatitis) Social History Social History Smoking packs per day: 1 Smoking cigarettes per day: 20.0 Years smoked: 30 Smoking pack-years: 30.00 Smoking status: Current every day smoker Tobacco type: cigarettes Second hand tobacco smoke exposure: Yes Alcohol intake: former Substance use: former Substance use type: crack/cocaine and amphetamines Other substance usage details: Fentynal Last use: 10/14/2021 Do You Feel Safe in your Home?: Yes Lack of Transportation: YES Lack of Food: Never True Current Housing: I Have Housing Concerned About Future Housing: No Difficulty Paying Gas/Electric Bills: No Difficulty Paying for Meds: No Currently Unemployed: No Education: Trade/Vocational Certificate Difficulty w/ Childcare or Family Care: No Spiritual care concerns: No Exam 2 Const: General: healthy appearing Nutritional Appearance: well nourished Orientation/consciousness: patient oriented x3 HENMT: Head: normal to inspection Ears: external ears normal F arnol/Nose/Sinus: Normal external nose present Eyes: Conjunctivae: abnormal conjunctivae Pupils: Equal, round and reactive pupils present EOM: EOMs intact bilaterally Direct Ophthalmoscopy: No no photophobia and photophobia Other: Left eyelid is swollen with redness all the way around circumferentially as well as significant swelling and pus on the eyelid and lashes; conjunctiva is fairly clear/white; cornea appears clear Neck: Neck: normal visual inspection Chest: Chest palpation & inspection: normal inspection of the chest Resp: Effort & Inspection: normal respiratory effort and not labored A uscultation: clear to auscultation bilaterally and no crackles Cardio: Rate: regular rate Rhythm: regular rhythm Heart sounds: no murmurs GI: Inspection: non-distended GI Palp: Yes Soft to palpation and No Tenderness to palpation present (GI) Auscultation: normal bowel sounds : General: Yes bladder normal to palpation Back/Spine/Pelvis: Back: no CVA tenderness Skin: General skin exam: normal color Rashes: no rashes Wounds: no wounds Neuro: General: patient oriented x3, moves all extremities and no meningeal signs Extrem: General: normal to inspection, no clubbing, cyanosis or edema and no pedal edema Psych: Mental Status: mental status grossly normal Affect: normal affect Attitude: cooperative Course Vital Signs Vital signs: Vital Signs Temperature 36.7 C 01/05/25 14:37 Pulse Rate 93 01/05/25 14:37 Respiratory Rate 18 01/05/25 14:37 Blood Pressure 154/90 H 01/05/25 14:37 Pulse Oximetry 95 01/05/25 14:37 Oxygen Delivery Room Air 01/05/25 14:37 Temperature 36.7 C 01/05/25 14:37 Pulse Rate 93 01/05/25 14:37 Respiratory Rate 18 01/05/25 14:37 Blood Pressure 154/90 H 01/05/25 14:37 Pulse Oximetry 95 01/05/25 14:37 Oxygen Delivery Room Air 01/05/25 14:37 MDM - Eye Problem MDM Narrative Medical decision making narrative: Patient is a 44-year-old female with left eye pain and swelling with pus for the past [address] scan. Labs. Antibiotics. Admission/transfer for higher level medical care. Ophthalmology. Discussed case with [facility] Ophthalmology and they agree to ER to ER evaluation. Lab Data Attestation: I reviewed the patient's lab results. 01/05/25 15:26 01/05/25 15:26 Labs: Lab Results 01/05/25 Range/Units 15:26 WBC 6.3 (4.8-10.8) K/mm3 RBC 4.62 (4.20-5.40) M/mm3 Hgb 12.8 (12.0-15.0) g/dL Hct 40.1 (35.0-49.0) % MCV 86.8 (78.0-102.0) fL MCH 27.7 (27.0-31.0) pg MCHC 31.9 L (32-36) g/dL RDW 13.4 (11.6-14.4) % Plt Count 201 (150-420) K/mm3 MPV 11.3 (9.2-11.8) fl Immature Gran % (Auto) 0.6 H (0.0-0.0) % Neut % (Auto) 61.3 (50.0-70.0) % Lymph % (Auto) 26.9 (18.0-42.0) % [place] % (Auto) 6.7 (2.0-11.0) % Eos % (Auto) 4.0 (1.0-6.0) % Baso % (Auto) 0.5 (0.0-1.0) % Lymph # (Auto) 1.68 (1.10-4.50) K/mm3 [place] # (Auto) 0.42 (0.10-0.90) K/mm3 Eos # (Auto) 0.25 (0.02-0.50) K/mm3 Baso # (Auto) 0.03 (0.00-0.10) K/mm3 Abs Immat Gran (auto) 0.04 H (0.00-0.00) K/mm3 Absolute Neuts (auto) 3.83 (1.70-7.20) K/mm3 Absolute Nucleated RBC 0.00 (0.00-0.00) K/mm3 Nucleated RBC % 0.0 (0-0.0) % Sodium 140 (137-145) mmol/L Potassium 4.2 (3.4-5.0) mmol/L Chloride 102 (98-107) mmol/L Carbon Dioxide 32 H (22-30) mmol/L Anion Gap 6 (4-12) mmol/L BUN 17 (7-17) mg/dL Creatinine 0.80 (0.7-1.0) mg/dL Estim Creat Clear Calc 95 ml/min Estimated GFR > 60 (59 - ) Glucose 98 (65-110) mg/dL Calculated Osmolality 291 (285-295) mOsm/kg Lactic Acid 1.1 (0.4-2.0) mmol/L Calcium 9.3 (8.4-10.2) mg/dL Total Bilirubin 0.6 (0.2-1.3) mg/dL AST 29 (14-36) U/L ALT 19 (6-35) U/L Alkaline Phosphatase 67 (38-126) U/L C-Reactive Protein 0.5 (<1.0) mg/dL Total Protein 8.6 H (6.3-8.2) g/dL Albumin 4.5 (3.5-5.1) g/dL Procalcitonin 0.0 ng/mL Imaging Data Attestation: I personally reviewed and interpreted this imaging study as follows: Radiologist's impression: CT scan orbits shows preseptal cellulitis but not orbital cellulitis at this time (exam is out of proportion to the CT scan findings) Discharge Plan Discharge Clinical Impression: Cellulitis of left orbit Patient Disposition: Acute Care Hospital Condition: Stable Patient Language: Swedish Prescriptions: No Action (DME) compress.stocking,knee,reg,lrg Misc See Rx Instructions .Route Qty: 2 0RF Rx Instructions: As directed thigh high Follow-up/Referrals: UNKNOWN,DOCTOR [Non-Staff] Time of Disposition: 17:51
--- NOTE | 2025-01-05 15:25 | PC.NURSE ---
Pt to CT scanner with radiology transport.
--- NOTE | 2025-01-05 15:40 | PC.NURSE ---
Pt back in room from CT scanner.
[2025-01-05] MEDS: PIPERACILLIN/TAZOBACTAM SOD 4.5 GM in SODIUM CHLORIDE 0.9% IV 100 ML 200 ML IVPB (15:42)
[2025-01-05 15:48] LABS: Hematocrit 40.1 % (35.0-49.0); Hemoglobin 12.8 g/dL (12.0-15.0); Immature Granulocyte Percent A 0.6 % (0.0-0.0); Lymphocytes Absolute Auto 1.68 K/mm3 (1.10-4.50); Mean Corpuscular HGB Conc 31.9 g/dL (32-36); Mean Corpuscular Hemoglobin 27.7 pg (27.0-31.0); Mean Corpuscular Volume 86.8 fL (78.0-102.0); Nucleated Red Blood Cells Absolute Auto 0.00 K/mm3 (0.00-0.00); Nucleated Red Blood Cells Perc 0.0 % (0-0.0); Platelet Count Result 201 K/mm3 (150-420); Red Blood Count 4.62 M/mm3 (4.20-5.40); White Blood Count 6.3 K/mm3 (4.8-10.8)
[2025-01-05 16:04] LABS: Alanine Aminotransferase 19 U/L (6-35); Albumin Level 4.5 g/dL (3.5-5.1); Alkaline Phosphatase 67 U/L (38-126); Anion Gap 6 mmol/L (4-12); Aspartate Amino Transferase 29 U/L (14-36); Bilirubin,Total 0.6 mg/dL (0.2-1.3); Blood Urea Nitrogen 17 mg/dL (7-17); Calcium 9.3 mg/dL (8.4-10.2); Carbon Dioxide 32 mmol/L (22-30); Chloride 102 mmol/L (98-107); Estimated CRCL calculation 95 ml/min; Estimated Glomerular Filt Rate > 60; Glucose 98 mg/dL (65-110); Osmolality Calculated 291 mOsm/kg (285-295); Potassium 4.2 mmol/L (3.4-5.0); Sodium 140 mmol/L (137-145); Total Protein 8.6 g/dL (6.3-8.2)
[2025-01-05 16:06] LABS: CRP 0.5 mg/dL (<1.0)
--- OUTSIDE RECORDS SUMMARY | 2025-01-05 16:17 | XMS_ITS | Clinical Summary ---
Author Organization [facility] [address] Address [address] [place] [address] Care Team Providers Care Fiscal Services Manager Name Role Phone Amber Wanda NP Primary Care Provider [phone] Allergies No known active allergies Medications No known medications Active Problems Problem Noted Date Diagnosed Date Opioid withdrawal 08/20/2017 Medical History Medical History Date Comments Hypertension Anxiety Depression Family History Medical History Relation Name Comments Hypertension Father Cancer Mother Hypertension Mother Relation Name Status Comments Father Mother Social History Tobacco Use Types Packs/Day Years Used Date Smoking Tobacco: Every Day Cigarettes Smokeless Tobacco: Never Tobacco Cessation:Ready to Q uit: No; Counseling Given: No Alcohol Use Standard Drinks/Week Comments No 0 (1 standard drink = 0.6 oz pur e alcohol) Personal Safety Answer Date Recorded Getting School Help Needed Not on file 05/26 Comments No Sex and Gender Information Value Date Recorded Sex Assigned at Not on file Legal Sex Female 9:56 AM CDT Gender Identity Not on file Sexual Orientation Not on file Obstetrics History Last Filed Vital Signs Vital Sign Reading Time Taken Comments Blood Pressure 100/68 09/04/2017 1:46 PM CDT Pulse 74 09/04/2017 1:46 PM CDT Temperature 36.7 C (98 F) 08/22/2017 8:00 AM CDT Respiratory Rate 18 08/22/2017 8:00 AM CDT Oxygen Saturation 96% 09/04/2017 1:46 PM CDT Inhaled Oxygen Concentration - - Weight 114.5 kg (252 lb 8 oz) 09/04/2017 1:46 PM CDT Height 163.2 cm (5' 4.25) 09/04/2017 1:46 PM CD T Body Mass Index 43 09/04/2017 1:46 PM CDT Plan of Treatment Not on file Insurance [facility] [place] [address] Advance Directives For more information, please contact: [phone] * Full Code (Latest Code Status on File) Date Activated Date Inactivated Comments 08/20/2017 2:16 PM 08/22/2017 4:47 PM Care Teams Fiscal Services Manager Relationship Specialty Start Date End Date Wanda Clark NP [address] [place] [address] [address] [place] [address] PCP - General Family Medicine 09/04/17
--- OUTSIDE RECORDS SUMMARY | 2025-01-05 16:17 | XMS_ITS | Clinical Summary ---
Author Organization [facility] Address [facility] [place] [address] Care Team Providers Care Building Services Engineer Name Role Phone Chelsey Howard DARIAN Primary [...] of 3 - 19+ 3-dose series) 1998 HPV Vaccines (1 - 3-dose SCD M series) 2006 Cervical Cancer Screening Pa p with HPV Testing (Age 30 to 64) Every 5 Years 2009 Cervical Cancer Screening with HPV 2009 Mammogram Screening 2019 COVID-19 Vaccine (2024-2 6 season) 2024 Influenza Adult (#1) 2024 Hepatitis A Vaccines Aged Out No long er eligible based on patient's age to complete [...] patient's age to complete this topic Insurance [facility] MEDICAID C/O PROVIDER SERVICES [place] [id number] Care Teams Building Services Engineer Relationship Specialty Start Date End Date Chelsey Howard APNP [address] [facility] [id number] MALIK Ponce [address] PCP - General FAMILY PRACTICE 11/22/23
--- OUTSIDE RECORDS SUMMARY | 2025-01-05 16:17 | XMS_ITS | Encounter Summary ---
Author Organization [facility] Address [facility] [place] [address] Care Team Providers Care Lunchroom Food Service Supervisor Name Role Phone Chelsey Howard Primary Care Provider Encounter Details Date Type Department Care Team (Late st Contact Info) Description 08/17/2018 Abstract SFL CONVERSION [address] [place] [address] , Generic Conversion, Social History Tobacco Use [...] on filedocumented in this encounter Care Teams Lunchroom Food Service Supervisor Relationship Specialty Start Date End Date Chelsey Howard APNP [address] [facility] [id number] [address] PCP - General FAMILY PRACTICE 11/22/23 documented as of this encounter
--- OUTSIDE RECORDS SUMMARY | 2025-01-05 16:18 | XMS_ITS | Patient Health Record ---
Author Organization [facility] Address [address] [place] [address] Care Team Providers Care Group Home Counselor Name Role Phone [facility] Unavailable [phone] DENZEL SMITH Unavailable [phone] Allergies No Known Allergies Reason For Referral Reason Please evaluate and treat Diagnosis 1 Obesity, unspecified class, unspecified obesity type, unspecified whether serious comorbidity present (E66.9) Referral Organization [facility] cassie Referring Provider First Name DENZEL Referring Provider Last Name LUIS Referring Provider Speciality Emergency Medicine Referred Provider Specialty Nutrition Referral Priority Routine Referral Appointment Date 07/08/2024 Social History Tobacco Use: Social History Observation Description Date Details (start date - stop date) Current Smoker NA - NA Tobacco Control (Standard) Question Answer Notes Tobacco use: Current smoker How often do you smoke cigarettes? Every day How many cigarettes a day do you smoke? 11-20 Vital Signs Height 64 in 07/10/2024 Patient Reported Normal Blood Pressure Patient Reported Normal Temperature Weight 260 lbs 07/10/2024 Patient Reported Normal Blood Pressure Patient Reported Normal Temperature BMI 44.63 kg/m2 07/10/2024 Patient Reported Normal Blood Pressure Patient Reported Normal Temperature Encounters Encounter Location Date Provider Diagnosis [facility] [address] [place] [address] 07/08/2024 DENZEL SMITH Obesity, unspecified class, unspecified obesity type, unspecified whether serious comorbidity present E66.9 [facility] [address] [place] [address] 07/10/2024 DENZEL SMITH Assessments Encounter Date Diagnosis (ICD Code) Assessment Notes Treatment Notes Treatment Clinical Notes Section Notes 07/08/2024 Obesity, unspecified class, unspecified obesity type, unspecified whether serious comorbidity present (ICD-10 - E66.9) TREATMENT PLAN: INITIAL VISIT LAB ORDER ONLY Patient here for initial screening visit to see if they qualifiy for GLP1 agonist (ozempic, wegovy, trulicity, mounjaro, zepbound, etc) by our protocol. Patient reports a BMI within reasonable range to begin initial screening labs (>25 BMI). Patient has not reported any significant other major medical history based on this visit and denies any specific family history of contraindications or risks concerning for GLP1 use. History is very limited based on this visit and more information will need to be obtained in order to obtain appropriate use criteria based on diagnosis and indications for these drugs. 1. Patient will need to obtain appropriate labwork prior to prescription for a GLP 1 agonist medication. They need to be aware many of these medications are off label and carry side effects that the patient will be counseled on during the initial video/audio visit following labwork. These side effects include but are not limited to nausea, vomiting, regurgitation of food, diarrhea, dehydration, kidney injury, abdominal pain, pancreatitis, low blood sugar, poor appetite, psychiatric changes, etc. 2. Obtain labs - CBC, CMP, a1c, TSH, lipids, UA, test (if female). If already done by another prescriber within 6 months, please provide us information that these were obtained and within reasonable range for medication prescription. 3. A video visit follow up in 4 weeks after labs are done. 4. Need information on prior weight loss methods tried (exercise, diet, meds), duration of those trials, success of those trials. Patient cannot be or if female. 5. If prescribed, patient will need director perioperative consult, monthly async follow up, quarterly face to face visits. Medication titrations will be based on qualifications and not patient request.PATIENT EDUCATION: WEIGHT LOSS Overview It can be a challenge to lose weight. But your doctor can help you make a weight-loss plan that meets your needs. You don't have to make a lot of big changes at once. A better idea might be to focus on small changes and stick with them. When those changes become habit, you can add a few more changes. Some people find it helpful to take an exercise or nutrition class. If you have questions, ask your doctor about seeing a registered dietitian or an practice specialist. You might also think about joining a weight-loss support group. If you're not ready to make changes right now, try to pick a date in the future. Then make an appointment with your doctor to talk about when and how you'll get started with a plan. Follow-up care is a samaniego part of your treatment and safety. Be sure to make and go to all appointments, and call your doctor if you are having problems. It's also a good idea to know your test results and keep a list of the medicines you take. How can you care for yourself at home? Set realistic goals. Many people expect to lose much more weight than is likely. A weight loss of 5% to 10% of your body weight may be enough to improve your health. Get family and friends involved to provide support. Talk to them about why you are trying to lose weight, and ask them to help. They can help by participating in exercise and having meals with you, even if they may be eating something different. Find what works best for you. If you do not have time or do not like to cook, a program that offers meal replacement bars or shakes may be better for you. Or if you like to prepare meals, finding a plan that includes daily menus and recipes may be best. Ask your doctor about other health professionals who can help you achieve your weight loss goals. A dietitian can help you make healthy changes in your diet. An practice specialist or crew trainer can help you develop a safe and effective exercise program. A counselor or psychiatrist can help you cope with issues such as depression, anxiety, or family problems that can make it hard to focus on weight loss. Consider joining a support group for people who are trying to lose weight. Your doctor can suggest groups in your area. 07/08/2024 Other Follow the treatment plan as indicated by the provider. Take any medications as prescribed. If you have any questions about your prescription, ask the pharmacist. This treatment plan is based on the information you have provided to us today. Incomplete disclosure of your medical history, past treatments, or current medications may affect the effectiveness of this treatment. Call 911 anytime you think you may need emergency care. For example, call if:You have severe trouble breathing.You have a seizure.Call your doctor now or seek immediate medical care if:You have trouble breathing.You have a fever with a stiff neck or a severe headache.You have pain or pressure in your chest or belly.You have a fever or cough that returns after getting better.You feel very sleepy, dizzy, or confused.You are not urinating.You have severe muscle pain.You have severe weakness, or you are unsteady.You have medical conditions that are getting worse.Watch closely for changes in your health, and be sure to contact your doctor if:You do not get better as expected.You are having a problem with your medicine. You participated in a [employer] Rx request, considered an asynchronous visit where you provide your symptoms and medical history, and a treatment plan is formulated based on your submission. A treatment plan and patient education were provided based on your submission. If symptoms persist or worsen, you should seek in-person care or call 911 immediately for further evaluation. 07/10/2024 Other Follow the treatment plan as indicated by the provider. Take any medications as prescribed. If you have any questions about your prescription, ask the pharmacist. This treatment plan is based on the information you have provided to us today. Incomplete disclosure of your medical history, past treatments, or current medications may affect the effectiveness of this treatment. Call 911 anytime you think you may need emergency care. For example, call if:You have severe trouble breathing.You have a seizure.Call your doctor now or seek immediate medical care if:You have trouble breathing.You have a fever with a stiff neck or a severe headache.You have pain or pressure in your chest or belly.You have a fever or cough that returns after getting better.You feel very sleepy, dizzy, or confused.You are not urinating.You have severe muscle pain.You have severe weakness, or you are unsteady.You have medical conditions that are getting worse.Watch closely for changes in your health, and be sure to contact your doctor if:You do not get better as expected.You are having a problem with your medicine. You participated in a [facility] Rx request, considered an asynchronous visit where you provide your symptoms and medical history, and a treatment plan is formulated based on your submission. A treatment plan and patient education were provided based on your submission. If symptoms persist or worsen, you should seek in-person care or call 911 immediately for further evaluation. Plan Of Treatment Pending Test Test Name Order Date COMPREHENSIVE METABOLIC PANEL (17539) CBC (INCLUDES DIFF/PLT) (6399) URINALYSIS, COMPLETE (7801) 07/08/2024 HEMOGLOBIN A1c (496) 07/08/2024 HCG, TOTAL, QL (8435) 07/08/2024 LIPID PANEL, STANDARD (7600) 07/08/2024 THYROID PANEL WITH TSH (7444) 07/08/2024 Insurance Providers Payer Name Payer Address Payer Phone Subscriber Number Group Number Insured Name Patient Relationship to Insured Coverage Start Date Coverage End Date BC [address] [place] [address] [phone] [id number] Meghan Russell Self - patient is the insured Medical (General) History Medical History History ICD Code Congestive heart failure 4 years ago michelle joy
[2025-01-05 16:21] LABS: Procalcitonin 0.0 ng/mL
[2025-01-05] MEDS: VANCOMYCIN 1,250 MG/NS 250 ML 1,250 MG/250 ML BAG 166.67 MG IVPB ×2 (16:30→18:19)
--- NOTE | 2025-01-05 18:23 | PC.NURSE ---
aerobic culture sent to lab
--- NOTE | 2025-01-08 13:02 | PC.NURSE ---
left eye culture-preliminary few white/few gram (+) cocci
--- NOTE | 2025-01-09 14:59 | PC.NURSE ---
FINAL GRAM STAIN AND AEROBIC BACTERIAL CULTURE RESULTS: FEW GRAM POSITIVE COCCI, MRSA IN AEROBIC CULTURE. PT WAS TRANSFERRED TO [facility]. I SPOKE WITH HIM AT [facility], PT HAD SIGNED OUT AMA FROM THEIR ED. PT DOES NOT HAVE A PMD ON FILE. MESSAGE LEFT WITH PT TO RETURN CALL TO ED. DR DREW IS AWARE, REPORTS TO CONTINUE TO ATTEMPT TO GET IN TOUCH WITH PT AND REFER TO ED.
--- NOTE | 2025-01-09 15:13 | PC.NURSE ---
another message left on pt phone [phone] and letter sent.
--- NOTE | 2025-01-09 15:38 | PC.NURSE ---
spoke with pt, pt states is taking oral antibiotics augmentin/bactrim. informed dr muñoz. continue to finish antibiotics as prescribed and follow up of fmd or eye doctor.
== END 2025-01-05 18:54 | disposition short-term general hospital (02) ==
PROVIDERS: Emergency Provider Emergency Medicine; Referring Provider Internal Medicine
DX: H05.012 Cellulitis of left orbit (principal); I10 Essential (primary) hypertension; F17.210 Nicotine dependence, cigarettes, uncomplicated
CPT/HCPCS: 36415; 70480; 80053; 83605; 84145; 85025; 86140; 96365; 96366; 96367; 99285; J2543; J3373

== ENCOUNTER 2025-01-21 21:15 | Emergency (ER) | payer MEDICAID, SELFPAY ==
[2025-01-21 21:15] VITALS: BP 176/96; PULSE 84; RESP 18; TEMP 36.3; O2SAT 100
--- NOTE | 2025-01-21 21:22 | ED_ITS ---
HPI - General Adult General Chief complaint: Unspecified Stated complaint: high blood pressure Time Seen by Provider: 01/21/25 21:21 Source: patient Mode of arrival: ambulatory Limitations: no limitations History of Present Illness HPI narrative: Patient bought a blood pressure machine last night, noticed that her blood pressure running on average 150 -169 over 85 -90. Patient is asymptomatic, denies any headache, fever, chills, nausea, vomiting, chest pain, shortness of breath, back pain or abdominal pain. Patient is telling me that she is to be on blood pressure medication 8 years ago. Also telling me that she used to be on Lasix and potassium 1 year ago. Patient is smoking, denies drinking or using drugs. Patient came to our emergency room on January 05, blood pressure on arrival was 142/85, at the time of discharge 175/99. Related Data Allergies Allergy/AdvReac Type Severity Reaction Status Date / Time No Known Allergies Allergy Mild Verified 01/21/25 21:23 Review of Systems Review of Systems: All systems reviewed & are unremarkable except as noted in HPI and below PMFSH Past Medical History Medical History Essential hypertension (06/24/12) Depression (12/09/10) Dependent edema Leg swelling Family History Family History Mother Graves disease Acquired lymphedema of leg ALFARO (nonalcoholic steatohepatitis) Social History Social History Smoking packs per day: 1 Smoking cigarettes per day: 20.0 Years smoked: 30 Smoking pack-years: 30.00 Smoking status: Current every day smoker Tobacco type: cigarettes Second hand tobacco smoke exposure: Yes Alcohol intake: former Substance use: former Substance use type: crack/cocaine and amphetamines Other substance usage details: Fentynal Last use: 10/14/2021 Do You Feel Safe in your Home?: Yes Lack of Transportation: YES Lack of Food: Never True Current Housing: I Have Housing Concerned About Future Housing: No Difficulty Paying Gas/Electric Bills: No Difficulty Paying for Meds: No Currently Unemployed: No Education: Trade/Vocational Certificate Difficulty w/ Childcare or Family Care: No Spiritual care concerns: No Exam Narrative: General appearance: Well-developed, well-nourished Skin: Normal color Head: Normocephalic, nontraumatic Eyes: Clear conjunctiva ENT: Oropharynx normal, ears normal, nose normal Neck: Supple, nontender Chest and respiratory: Airway patent, no respiratory distress, no accessory muscle use Heart: Regular rate/rhythm Abdomen: Soft, nontender, no organomegaly, quiet bowel sounds Vascular: Normal peripheral pulses, normal capillary refill. Musculoskeletal: Normal range of motion, nontender back Neurologic: Alert and oriented ?3, EXPERIMENTAL MECHANIC is normal as tested, no gross motor deficit Course Vital Signs Vital signs: Vital Signs Temperature 36.3 C L 01/21/25 21:15 Pulse Rate 84 01/21/25 21:15 Respiratory Rate 18 01/21/25 21:15 Blood Pressure 176/96 H 01/21/25 21:15 Pulse Oximetry 100 01/21/25 21:15 Oxygen Delivery Room Air 01/21/25 21:15 Temperature 36.3 C L 01/21/25 21:15 Pulse Rate 84 01/21/25 21:15 Respiratory Rate 18 01/21/25 21:15 Blood Pressure 161/102 H 01/21/25 21:55 Pulse Oximetry 100 01/21/25 21:15 Oxygen Delivery Room Air 01/21/25 21:15 Medical Decision Making MDM Narrative Medical decision making narrative: Patient bought a blood pressure machine last night and been checking her blood pressure every few hours since. Blood pressure on arrival was 176/96, within 15 minutes, without any medication dropped to 161/102. Patient was in our emergency room on January 05 and blood pressure on arrival was 142/85, at the time of discharge 175/99. Patient blood pressure at home yesterday was running high, systolic less than 169 and Less and diastolic 90 and Less. Differential diagnosis anxiety, stress, noncompliance with medications. In the ED patient received 50 mg of losartan p.o. prior to discharge, a prescription of losartan 50 mg once a day for the next 30 days until she see her family physician on February 09. Patient still asymptomatic at the time of discharge. The pt was discharged to home.the pt,s condition upon discharge was fair,education was provided to the pt in reference to the final impression,discharge study results,treatment,prognosis and need for follow up . Vital Signs Vital Signs: Vital Signs Temperature 36.3 C L 11/12/25 21:15 Pulse Rate 84 01/21/25 21:15 Respiratory Rate 18 01/21/25 21:15 Blood Pressure 176/96 H 01/21/25 21:15 Pulse Oximetry 100 01/21/25 21:15 Oxygen Delivery Room Air 01/21/25 21:15 Temperature 36.3 C L 01/21/25 21:15 Pulse Rate 84 01/21/25 21:15 Respiratory Rate 18 01/21/25 21:15 Blood Pressure 161/102 H 01/21/25 21:55 Pulse Oximetry 100 01/21/25 21:15 Oxygen Delivery Room Air 01/21/25 21:15 Critical Care Time Critical Care Time Critical Care Time: No Discharge Plan Discharge Clinical Impression: Hypertension, Non-compliance, Encounter for smoking cessation counseling Patient Disposition: Home Condition: Stable Instructions: How to Stop Smoking (ED), Hypertension (ED) Additional Instructions: Return if symptoms are worsening , call your family physician for appointment, take Tylenol as as needed for aches and pain, continue home medications. Patient Language: Kuwaiti Prescriptions: New losartan 50 mg tablet 50 mg PO DAILY Qty: 30 0RF No Action (DME) compress.stocking,knee,reg,lrg Misc See Rx Instructions .Route Qty: 2 0RF Rx Instructions: As directed thigh high Follow-up/Referrals: UNKNOWN,DOCTOR [Non-Staff]
[2025-01-21] MEDS: LOSARTAN POTASSIUM 50 MG TABLET PO (21:48)
[2025-01-21 21:55] VITALS: BP 161/102
== END 2025-01-21 21:55 | disposition home or self-care (01) ==
LOC: CHSED 21:42
PROVIDERS: Emergency Provider Emergency Medicine; Referring Provider Family Medicine
DX: I10 Essential (primary) hypertension (principal); F17.210 Nicotine dependence, cigarettes, uncomplicated; Z91.148 Patient's other noncompliance with medication regimen for other reason
CPT/HCPCS: 99283; A9270

== ENCOUNTER 2025-03-07 15:23 | Emergency (ER) | payer OTHER, SELFPAY ==
--- OUTSIDE RECORDS SUMMARY | 2024-07-22 12:00 | XMS_ITS ---
Author Organization [facility] Address [address] [place] [address] Care Team Providers Care Rehab Nursing Tech Name Role Phone [facility] Unavailable [phone] REASON FOR VISIT F/U GLP1 Lab results Encounters Encounter Location Date Provider Diagnosis [facility] [address] [place] [address] 07/22/2024 [facility] Plan Of Treatment No Information Progress Notes * Meghan RUSSELLDOB:1980 ( 45 yo F)Acc No.[id number]:07/22/2024 Progress Notes Patient: Meghan COBIAN Provider: ePyman TERAN :1980 A ge:44 Y S ex:Female Date:07/22/2024 Phone: Address:[address] [place], [place] [phone] Subjective: * Chief Complaints: * 1 . F/U GLP1 Lab results. * Medical History: Objective: * Vitals: Assessment: Plan: * Treatment: * Billing Information: * Visit Code: * Procedure Codes: * Electronic signature of [facility] on 03/07/2025 at 04:25 PM EST Sign off status: Pending * Provider: Peyman NAIK [facility] Date: 0 07/22/2024 Generated for Denton skelton/Pernell/eTransmitting on: 1 05/08/2024 04:25 PM EST
[2025-03-07] VITALS (60 sets, daily range): BP systolic 97–148; BP diastolic 59–113; PULSE 78–121; RESP 10–36; TEMP 36.1–36.6; O2SAT 71–100
--- NOTE | 2025-03-07 | CONSULT_PTH ---
PATIENT: Meghan Russell LOC: [facility] U#:[id number] AGE/SX: 45/F ROOM: RE03/07/[address]: Leonard Vogel MD : 1980 BED: DIS: 03/07/2025 SPEC #: [id number] RECD: 03/07/25 17:02 STATUS: MATT GOEL #: [id number] YUE: 03/07/25 00:[address]: Leonard Vogel DEPT: [facility] Consult RECD BY: Danielle Givens MLT, ([facility]) ENTERED: 03/07/25 17:02 SP TYPE: Consult OTHR DR: GAMBLING CASHIER PHYSICIAN Tissues: A - Peripheral Smear Procedures: Hematology Consult
--- NOTE | ~2025-03-07 | CT_ITS ---
EXAMINATION: CT brain wo con DATE: 03/07/2025 18:01 INDICATION: Altered mental status. Trauma to the right side. TECHNIQUE: Computed tomography (CT) of the head was performed without intravenous contrast. The mA was adjusted according to patient size. Iterative reconstruction technique was employed. The dose-length product was 681.00 mGy-cm. COMPARISON: None FINDINGS: Some of the images are compromised due to motion. No acute bleed. Chronic ischemic changes of the left temporal lobe. No ventriculomegaly or midline shift. No acute cranial fractures. IMPRESSION: 1. Limited study due to motion artifacts. No acute intracranial bleed. No evidence of cranial fracture. Reviewed, dictated and finalized at location T. GRINDER IMPRESSION: 1. Limited study due to motion artifacts. No acute intracranial bleed. No evide nce of cranial fracture.
--- NOTE | ~2025-03-07 | CT_ITS ---
EXAMINATION: CT facial bones and C-spine without contrast: DATE: 03/07/2025, 6:00 PM INDICATION: Trauma. Injury to the right side. TECHNIQUE: CT was performed through facial bones without contrast. Multiplanar reconstruction obtained. CT obtained through the C-spine and reviewed in multiple projections. Radiation dose 1055 MG Y C.M. COMPARISON: None. FINDINGS: Soft tissue hematoma of the scalp in the left supraorbital region. The orbital floors are intact. No acute fractures of the zygomatic arches, maxilla, nasal bones and the mandible. No acute fractures are cervical vertebrae. Significant degenerative disc disease at C5-6, C6-7 levels. Reversal of cervical lordosis due to paravertebral muscle spasm. At the apex of the lungs, patchy airspace opacities are noted on both sides suspicious of bilateral pulmonary edema or pneumonia. Please correlate with chest x-ray findings. IMPRESSION: 1. No evidence of acute fractures of facial bones and C-spine. 2. Patchy airspace opacities are noted at the apex of lungs on both sides. Possible bilateral pneumonia versus pulmonary edema. Please correlate with clinical and lab findings and chest x-ray findings. Reviewed, dictated and finalized at location T. OGRAPHY INTERN IMPRESSION: 1. No evidence of acute fractures of facial bones and C-spine. 2. Patchy airspace opacities are noted at the apex of lungs on both sides. Poss ible bilateral pneumonia versus pulmonary edema. Please correlate with clinical and lab findings and chest x-ray findings.
--- NOTE | ~2025-03-07 | XR_ITS ---
EXAMINATION: XR chest 1V portable DATE: 03/07/2025 18:01 INDICATION: Altered mental status. Trauma. TECHNIQUE: A single frontal view of the chest was obtained. COMPARISON: Chest x-ray dated 03/31/2024. FINDINGS: Mild cardiomegaly. Suspected infiltrates in the right upper lung field. No definite focal findings on the left side. IMPRESSION: 1. Limited study due to rotation. Infiltrates are suspected in the right upper lung field suggesting pneumonia. Reviewed, dictated and finalized at location T. RAL DISTILLERY WORKER
--- OUTSIDE RECORDS SUMMARY | 2025-03-07 15:26 | XMS_ITS | Patient Health Record ---
Author Organization [facility] Address [address] [place] [address] Care Team Providers Care Geology Scientist Name Role Phone [facility] Unavailable [phone] DENZEL SMITH Unavailable [phone] Allergies No Known Allergies Reason For Referral Reason Please evaluate and treat Diagnosis 1 Obesity, unspecified class, unspecified obesity type, unspecified whether serious comorbidity present (E66.9) Referral Organization [facility] cassie Referring Provider First Name DENZEL Referring [...] Temperature Encounters Encounter Location Date Provider Diagnosis [facility] [address] [place] [address] 07/08/2024 DENZEL SMITH Obesity, unspecified class, unspecified obesity type, unspecified whether serious comorbidity present E66.9 [facility] [address] [place] [address] 07/10/2024 DENZEL SMITH Assessments Encounter Date Diagnosis [...] female. 5. If prescribed, patient will need coagulating bath mixer consult, monthly async follow up, quarterly face [...] about seeing a registered dietitian or an prescription benefit specialist. You might also think about joining [...] make healthy changes in your diet. An prescription benefit specialist or animal trainer can help you develop a safe [...] Test Name Order Date COMPREHENSIVE METABOLIC PANEL (50761) CBC (INCLUDES DIFF/PLT) (6399) URINALYSIS, COMPLETE (7564) 07/08/2024 HEMOGLOBIN A1c (496) 07/08/2024 HCG, TOTAL, QL (8435) 07/08/2024 LIPID PANEL, STANDARD (7600) 07/08/2024 THYROID PANEL WITH TSH (7444) 07/08/2024 Insurance Providers Payer Name Payer Address Payer Phone Subscriber Number Group Number Insured Name Patient Relationship to Insured Coverage Start Date Coverage End Date BC [address] [place] [address] [phone] [id number] Meghan Russell Self - patient is the insured Medical (General) History Medical History History ICD Code Congestive heart failure 4 years ago michelle joy
--- OUTSIDE RECORDS SUMMARY | 2025-03-07 15:26 | XMS_ITS | Clinical Summary ---
Author Organization [facility] Address [facility] [place] [address] Care Team Providers Care Cotton Weigher Name Role Phone Chelsey Howard DARIAN Primary [...] 6 season) 2024 Influenza Adult (#1) 2024 HPV Vaccines Aged Out No longer eligi ble based on patient's age to complete this topic Hepatitis A Vaccines Aged Out No long [...] patient's age to complete this topic Insurance [facility] MEDICAID C/O PROVIDER SERVICES [place] [id number] Care Teams Cotton Weigher Relationship Specialty Start Date End Date Chelsey Howard APNP [address] [facility] [id number] [place] [address] PCP - General FAMILY PRACTICE 11/22/23
--- OUTSIDE RECORDS SUMMARY | 2025-03-07 15:26 | XMS_ITS | Encounter Summary ---
Author Organization [facility] Address [facility]ly [facility] [place] [address] Care Team Providers Care Stencil Machine Operator Name Role Phone Chelsey Howard Primary Care Provider Encounter Details Date Type Department Care Team (Late st Contact Info) Description 08/17/2018 Abstract SFL CONVERSION [address] [address] , Generic Conversion, Social History Tobacco Use [...] on filedocumented in this encounter Care Teams Stencil Machine Operator Relationship Specialty Start Date End Date Chelsey Howard APNP [address] [facility] [id number], [place] [address] PCP - General FAMILY PRACTICE 11/22/23 documented as of this encounter
--- NOTE | 2025-03-07 15:32 | ECG_ITS ---
Test Date: 2025-03-07 15:38:46 Measurements Intervals Casanova Rate: 103 P: 70 SC: 182 QRS: 58 QRSD: 91 T: 42 QT: 348 QTc: 458 Interpretive Statements SINUS TACHYCARDIA BASELINE ARTIFACT- I, II, III, AVR, AVL, AVF, V1, V3-V6 BORDERLINE ECG Compared to ECG 03/13/2024 22:58:58 HEART RATE HAS INCREASED Electronically Signed On 03-07-2025 21:10:25 INSTRUCTOR LOOPING by Te Alva D.O.
[2025-03-07] MEDS: LORazepam INJ (*CRX) 2 MG/ML VIAL IV PUSH (15:35)
--- NOTE | 2025-03-07 15:43 | ED_ITS ---
HPI - Altered Mental Status General Chief Complaint: Overdose Stated Complaint: overdose Source: EMS Mode of arrival: EMS Limitations: altered mental status History of Present Illness HPI narrative: This is a 45-year-old female, brought in by EMS from home after being found down with suspected drug overdose. EMS reports down time was approximately 20 minutes prior to their arrival. At the scene, the patient was breathing spontaneously though was not responsive to commands. She was given 1 mg of intranasal Narcan, followed by 2 mg of IV Narcan with improvement of mental status though with agitation. Fingerstick glucose in the 130s. The patient reportedly did not answer orientation questions. The patient is agitated and does not answer questions though seems to follow some commands. Related Data Allergies Allergy/AdvReac Type Severity Reaction Status Date / Time No Known Allergies Allergy Mild Verified 03/07/25 15:32 PMFSH Past Medical History Medical History Generalized anxiety disorder (12/09/10) Essential hypertension (06/24/12) Depression (12/09/10) Dependent edema Leg swelling Family History Family History Mother Graves disease Acquired lymphedema of leg ALFARO (nonalcoholic steatohepatitis) Social History Social History Smoking packs per day: 1 Smoking cigarettes per day: 20.0 Years smoked: 30 Smoking pack-years: 30.00 Smoking status: Current every day smoker Tobacco type: cigarettes Second hand tobacco smoke exposure: Yes Alcohol intake: former Substance use: former Substance use type: methamphetamine and unknown Other substance usage details: Fentynal Last use: 10/14/2021 Lack of Transportation: YES Lack of Food: Never True Current Housing: I Have Housing Concerned About Future Housing: No Difficulty Paying Gas/Electric Bills: No Difficulty Paying for Meds: No Currently Unemployed: No Education: Trade/Vocational Certificate Difficulty w/ Childcare or Family Care: No Spiritual care concerns: No Exam 2 Narrative: GENERAL: Well-developed, well-nourished, agitated and in moderate moderate distress HEAD: Normocephalic, there is a 5 cm area of erythema and swelling noted to the left lateral eyebrow. EYES: PERRLA and EOMI. The bilateral upper and lower eyelids appear somewhat swollen. Pupils are 3 mm and sluggishly reactive bilaterally ENT: Poor dentition. Nares clear, no rhinorrhea or epistaxis. Mucous membranes moist. Oropharynx without tonsillar hypertrophy exudate or other lesions. NECK: Supple. No obvious midline spine tenderness to palpation, no step-off or crepitus CHEST: Clear to auscultation. No respiratory distress. No wheezes rales or rhonchi HEART: Tachycardic with rhythm. No murmur heard. Normal peripheral pulses. ABDOMEN: Soft, nontender, nondistended, normal active bowel sounds. EXTREMITIES: Normal range of motion. No edema. SKIN: Warm, dry, no rash. NEURO: Alert and agitated, does not answer orientation questions. Follows some commands. Moving all 4 limbs spontaneously Course Course Emergency Course: 15:55 - Nursing staff spoke with the patient's significant other who states he found her lying down with sonorous respirations for approximately 1 hour prior to calling EMS. 18:11 -the patient was agitated and not cooperating with nursing staff. She was given Ativan and Haldol with gradual improvement of agitation and mentation. Glucose on the patient's chemistries was decreased to 56 for which she was given an amp of D50 with improvement to 87. Chemistries also demonstrated ADOLFO with creatinine of 1.4 and elevated CK of 1438 concerning for rhabdomyolysis. AST/ALT 200/134 respectively. Bicarb decreased at 19. Chemistries otherwise within normal limits. Urinalysis demonstrates 3+ blood with RBCs but is not concerning for urinary tract infection (changes may be related to straight cath). Urine drug screen positive for amphetamines and cocaine was otherwise negative. Salicylates, acetaminophen and alcohol levels negative. The patient began sleeping after receiving sedating medications with desaturation to the mid 80s. She was placed on simple facemask with improvement to the low 90s. Return from CT she had desaturated again to 77%. Chest x-ray shows changes consistent with pneumonia on the right side. My review of the patient's CT head is not concerning for intracranial hemorrhage or skull fracture. Will treat with DuoNeb and if her saturations do not improve, will intubate. 19:02 - The patient's O2 sats improved to 99% while on the DuoNeb. She was placed on BiPAP at 12/5 at 30% FiO2 with improvement of her sats to 97%. Chest x-ray shows changes concerning for right-sided pneumonia. Will treat with antibiotics for aspiration pneumonia. CT head negative for intracranial hemorrhage or fracture. CT cervical spine negative for fracture dislocation. CT facial bones negative for fracture dislocation. The patient's blood glucose decreased again to 63. The patient was started on D5 half-normal saline with improvement to 85. Will transfer for persistent hypoglycemia hypoxia and aspiration pneumonia. 19:38 - I discussed the patient with HS a [facility] viscosity tester Dr. Bernal who accepts transfer to ICU with recommendation for an additional L of fluids and azithromycin. Vital Signs Vital signs: Vital Signs Temperature 96.9 F L 03/07/25 15:23 Pulse Rate 105 H 03/07/25 15:23 Respiratory Rate 36 H 03/07/25 15:23 Blood Pressure 140/113 H 03/07/25 15:23 Pulse Oximetry 100 03/07/25 15:23 Oxygen Delivery Room Air 03/07/25 15:23 Temperature 96.9 F L 03/07/25 15:23 Pulse Rate 84 03/07/25 19:41 Respiratory Rate 16 03/07/25 19:41 Blood Pressure 97/75 L 03/07/25 19:15 Pulse Oximetry 100 03/07/25 19:41 Oxygen Delivery BiPAP 03/07/25 19:41 Oxygen Flow Rate 10 03/07/25 18:11 Procedures Other Procedure Procedure 1: Other Procedure: 03/07/2025 19:31 Ultrasound-guided arterial puncture Under ultrasound, the right radial and ulnar arteries were identified. They were noted to be pulsatile without obvious obstruction. The overlying skin was prepped with chlorhexidine. Under dynamic ultrasound guidance, the right radial artery was punctured with a 27 gauge needle for ABG. Direct pressure was placed after puncture. Radial and ulnar pulses are intact. No bleeding, cyanosis or other complication noted. [facility] Narrative Medical decision making narrative: Plan: Chemical sedation, labs, imaging, EKG, reassess Differential Diagnosis Differential Diagnosis: Drug/alcohol intoxication, opioid withdrawal, opioid overdose, hypoglycemia, intracranial hemorrhage, ischemic brain injury, facial fracture, cervical spine fracture, rhabdomyolysis, metabolic abnormality, , other Medical Records I have reviewed the following patient records and this information was taken into consideration when formulating the assessment and plan.: previous labs and previous ER visits Lab Data [facility] Lab Attestation statement: I personally reviewed the patient's lab results. 03/07/25 16:04 03/07/25 16:04 Labs: Lab Results 03/07/25 03/07/25 03/07/25 Range/Units 16:04 16:24 17:12 WBC 21.8 H (4.8-10.8) K/mm3 RBC 4.56 (4.20-5.40) M/mm3 Hgb 12.7 (12.0-15.0) g/dL Hct 41.8 (35.0-49.0) % MCV 91.7 (78.0-102.0) fL MCH 27.9 (27.0-31.0) pg MCHC 30.4 L (32-36) g/dL RDW 13.0 (11.6-14.4) % Plt Count 233 (150-420) K/mm3 MPV 12.0 H (9.2-11.8) fl Immature Gran % (Auto) Not Reportable Neut % (Auto) Not Reportable Lymph % (Auto) Not Reportable Spink % (Auto) Not Reportable Eos % (Auto) Not Reportable Baso % (Auto) Not Reportable Lymph # (Auto) Not Reportable Spink # (Auto) Not Reportable Eos # (Auto) Not Reportable Baso # (Auto) Not Reportable Abs Immat Gran (auto) Not Reportable Absolute Neuts (auto) Not Reportable Absolute Nucleated RBC Not Reportable Total Counted 100 Neutrophils % (Manual) 75 H (46-73) % Band Neutrophils % 7 H (0-6) % Lymphocytes % (Manual) 5 L (18-44) % Monocytes % (Manual) 13 H (3-9) % Eosinophils % (Manual) 0 L (1-6) % Basophils % (Manual) 0 (0-1) % Nucleated RBC % Not Reportable Abs Neuts (Manual) 17.87 H (1.3-6.7) K/mm3 Abs Lymphs (Manual) 1.09 L (1.1-4.5) K/mm3 Abs Monocytes (Manual) 2.83 H (0.1-0.90) K/mm3 Absolute Eos (Manual) 0.00 L (0.02-0.50) K/mm3 Abs Basophils (Manual) 0.00 (0-0.1) K/mm3 Platelet Estimate Adequate (Adequate) Schistocytes Not Reportable PT 12.2 H (9.50-12.1) Seconds INR 1.1 Expiratory Pressure cmH2O Inspiratory Pressure cmH2O Sodium 142 (137-145) mmol/L Potassium 5.0 (3.4-5.0) mmol/L Chloride 107 (98-107) mmol/L Carbon Dioxide 19 L (22-30) mmol/L Anion Gap 16 H (4-12) mmol/L BUN 13 (7-17) mg/dL Creatinine 1.40 H (0.7-1.0) mg/dL Estim Creat Clear Calc 49 ml/min Estimated GFR 40 L (59 - ) Glucose 56 L* (65-110) mg/dL POC Capillary Glucose 87 (65-105) mg/dl Calculated Osmolality 292 (285-295) mOsm/kg Calcium 8.4 (8.4-10.2) mg/dL Magnesium 2.2 (1.6-2.3) mg/dL Total Bilirubin 0.5 (0.2-1.3) mg/dL AST 200 H (14-36) U/L ALT 134 H (6-35) U/L Alkaline Phosphatase 61 (38-126) U/L Total Creatine Kinase 1438 H (30-135) U/L Total Protein 6.8 (6.3-8.2) g/dL Albumin 4.2 (3.5-5.1) g/dL Serum HCG, Qual Negative Urine Color Yellow (Yellow) Urine Appearance Clear (Clear) Urine pH 6.0 (5.0-8.0) Ur Specific High[place] 1.025 H (1.010-1.020) Urine Protein 1+ H (Negative) Urine Glucose (UA) 1+ H (Negative) Urine Ketones Negative (Negative) Ur Blood (Man) 3+ H (Negative) Urine Nitrate Negative (Negative) Urine Bilirubin Negative (Negative) Urine Urobilinogen 0.2 (0.2-1.0) mg/dL Leukocyte Esterase Rfl Negative (Negative) MARY/UL Urine RBC 6-10 H (0-2) /hpf Urine WBC None seen (0-3) /hpf Ur Squamous Epith Cells Few (Few) /hpf Urine Bacteria 1+ H (None) /hpf Urine Mucus Moderate H /lpf Salicylates < 1.0 L (2-20) mg/dL Urine Opiates Screen Negative (Negative) Urine Methadone Screen Negative (Negative) Acetaminophen < 10 L (10-30) ug/mL Ur Barbiturates Screen Negative (Negative) Ur Phencyclidine Scrn Negative (Negative) Ur Amphetamine Screen Positive A (Negative) U Benzodiazepines Scrn Negative (Negative) Urine Cocaine Screen Positive A (Negative) U Cannabinoids Screen Negative (Negative) Ethyl Alcohol < 10 (<10) mg/dL 03/07/25 03/07/25 03/07/25 Range/Units 18:02 18:40 18:59 WBC (4.8-10.8) K/mm3 RBC (4.20-5.40) M/mm3 Hgb (12.0-15.0) g/dL Hct (35.0-49.0) % MCV (78.0-102.0) fL MCH (27.0-31.0) pg MCHC (32-36) g/dL RDW (11.6-14.4) % Plt Count (150-420) K/mm3 MPV (9.2-11.8) fl Immature Gran % (Auto) Neut % (Auto) Lymph % (Auto) Spink % (Auto) Eos % (Auto) Baso % (Auto) Lymph # (Auto) Spink # (Auto) Eos # (Auto) Baso # (Auto) Abs Immat Gran (auto) Absolute Neuts (auto) Absolute Nucleated RBC Total Counted Neutrophils % (Manual) (46-73) % Band Neutrophils % (0-6) % Lymphocytes % (Manual) (18-44) % Monocytes % (Manual) (3-9) % Eosinophils % (Manual) (1-6) % Basophils % (Manual) (0-1) % Nucleated RBC % Abs Neuts (Manual) (1.3-6.7) K/mm3 Abs Lymphs (Manual) (1.1-4.5) K/mm3 Abs Monocytes (Manual) (0.1-0.90) K/mm3 Absolute Eos (Manual) (0.02-0.50) K/mm3 Abs Basophils (Manual) (0-0.1) K/mm3 Platelet Estimate (Adequate) Schistocytes PT (9.50-12.1) Seconds INR Expiratory Pressure 5 cmH2O Inspiratory Pressure 12 cmH2O Sodium (137-145) mmol/L Potassium (3.4-5.0) mmol/L Chloride (98-107) mmol/L Carbon Dioxide (22-30) mmol/L Anion Gap (4-12) mmol/L BUN (7-17) mg/dL Creatinine (0.7-1.0) mg/dL Estim Creat Clear Calc ml/min Estimated GFR (59 - ) Glucose (65-110) mg/dL POC Capillary Glucose 63 L 85 (65-105) mg/dl Calculated Osmolality (285-295) mOsm/kg Calcium (8.4-10.2) mg/dL Magnesium (1.6-2.3) mg/dL Total Bilirubin (0.2-1.3) mg/dL AST (14-36) U/L ALT (6-35) U/L Alkaline Phosphatase (38-126) U/L Total Creatine Kinase (30-135) U/L Total Protein (6.3-8.2) g/dL Albumin (3.5-5.1) g/dL Serum HCG, Qual Urine Color (Yellow) Urine Appearance (Clear) Urine pH (5.0-8.0) Ur Specific Highlands (1.010-1.020) Urine Protein (Negative) Urine Glucose (UA) (Negative) Urine Ketones (Negative) Ur Blood (Man) (Negative) Urine Nitrate (Negative) Urine Bilirubin (Negative) Urine Urobilinogen (0.2-1.0) mg/dL Leukocyte Esterase Rfl (Negative) MARY/UL Urine RBC (0-2) /hpf Urine WBC (0-3) /hpf Ur Squamous Epith Cells (Few) /hpf Urine Bacteria (None) /hpf Urine Mucus /lpf Salicylates (2-20) mg/dL Urine Opiates Screen (Negative) Urine Methadone Screen (Negative) Acetaminophen (10-30) ug/mL Ur Barbiturates Screen (Negative) Ur Phencyclidine Scrn (Negative) Ur Amphetamine Screen (Negative) U Benzodiazepines Scrn (Negative) Urine Cocaine Screen (Negative) U Cannabinoids Screen (Negative) Ethyl Alcohol (<10) mg/dL ABG Data ABG results: 03/07/25 18:40 Puncture Site Right radial ABG pH 7.26 L ABG pCO2 51.3 H ABG pO2 63.9 L ABG HCO3 22.3 L ABG O2 Saturation 90.3 L ABG Base Excess -5.2 L Oxyhemoglobin 88.0 L O2 Delivery Device Bipap O2 Liters/Min 0.0 Imaging Data Radiologist's impression: ITS Impressions Chest X-Ray 03/07/25 18:02 IMPRESSION: 1. Limited study due to rotation. Infiltrates are suspected in the right upper lung field suggesting pneumonia. Head CT 03/07/25 18:03 IMPRESSION: 1. Limited study due to motion artifacts. No acute intracranial bleed. No evidence of cranial fracture. Head/Cervical Spine/Facial Bones CT 03/07/25 18:06 IMPRESSION: 1. No evidence of acute fractures of facial bones and C-spine. 2. Patchy airspace opacities are noted at the apex of lungs on both sides. Possible bilateral pneumonia versus pulmonary edema. Please correlate with clinical and lab findings and chest x-ray findings. ECG Data EKG #1: Attestation: I personally reviewed and interpreted this ECG as follows: ECG completion date: 03/07/25 ECG completion time: 15:38 Prior ECG tracings: available for review Interpretation: Artifact present, sinus tachycardia, normal axis, no ST segment elevations or T- wave inversions concerning for ischemia, normal intervals with QTC of 408. No significant change compared to EKG done in March 2024. Critical Care Time Critical Care Time Critical Care Time: Yes Indication: Due to a high probability of clinically significant, life threatening deterioration, the patient required my highest level of preparedness to intervene emergently and I personally spent this critical care time directly and personally managing the patient. This critical care time included obtaining a history; examining the patient; pulse oximetry; ordering and review of studies; arranging urgent treatment with development of a management plan; evaluation of patient's response to treatment; frequent reassessment; and discussions with other providers. It was exclusive of separately billable procedures and treating other patients and teaching time. Please see MDM and Course section and the rest of the note for further information on patient assessment and treatment Time Type: Intermittent Initial evaluation, discuss w/ involved parties, attempting to gather old records: 30 minutes Documenting medical record: 5 minutes Review of results (EKG's, labs, imaging): 5 minutes Serial repeat bedside evaluation: 15 minutes Discussing case with multiple memebers of the care team and consultants: 15 minutes Total Critical Care Time: 70 Discharge Plan Discharge Clinical Impression: Aspiration pneumonia, Overdose, ADOLFO (acute kidney injury), Cocaine intoxication, Amphetamine intoxication, Rhabdomyolysis, Hypoglycemia, Acute hypoxic respiratory failure Patient Disposition: Acute Care Hospital Condition: Serious Patient Language: Venezuelan Prescriptions: No Action (DME) compress.stocking,knee,reg,lrg Misc See Rx Instructions .Route Qty: 2 0RF Rx Instructions: As directed thigh high losartan 50 mg tablet 50 mg PO DAILY Qty: 30 0RF Follow-up/Referrals: Malcolm Alcocer MD [Physician, Internal Medicine] Time of Disposition: 19:38
[2025-03-07] MEDS: dexAMETHasone SOD PHOS INJ 10 MG/ML 1 ML VIAL IV PUSH (15:52)
[2025-03-07] MEDS: HALOPERIDOL LACTATE 5 MG/ML VIAL IM (15:57)
--- OUTSIDE RECORDS SUMMARY | 2025-03-07 16:01 | XMS_ITS | Clinical Summary ---
Author Organization [facility] Address [address] [place] [address] Care Team Providers Care Tromper Name Role Phone Unavailable Primary Care Provider Unavailabl e Source Comments [facility],non-owned Affiliates and Associated Physician Practices is amultiple site organization consisting of ambulatory clinics and hospital sitesin [place], [place], [place] and [place]. This disclosure is being madepursuant to the Care Everywhere program and may not contain all information available regarding this patient. Last updated 17.[facility] Allergies No known active allergies Medications * Be aware that medications may not be up to date on this document. Alwaysverify current medications with the patient. 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 01/13/2025 Travel 01/12/2025 Travel 01/06/2025 Telephone [facility] - Ophthal[facility] [place] [phone] Lisandro Goodman MD Eye Problem 01/05/2025 8:02 PM CDT - 01/05/2025 11:12 PM CDT Emergency [facility] EMERGENCY [facility]PARTMENT [address] [place] [phone] Georges Méndez MD Preseptal cellulitis of left eye (Primary Dx); Eye swelling Discharge Disposition: Left Against Medical Advice/Discontinued Care 01/05/2025 Ophth Exam [facility] - Ophthalmology [address] [place] [address] Miguel Guzmán MD 01/05/2025 Travel 01/05/2025 Telephone [facility] - Ophthalmology [address] [place] [address] Miguel Guzmán MD Eye Problem from Last 3 Months Social History Tobacco Use Types Packs/Day Years Used Date Smoking Tobacco: Never Assessed Comments Unknown Sex and Gender Information Value Date Recorded Sex Assigned at Not on file Legal Sex Female 5:17 PM CDT Gender Identity Not on file Sexual Orientation Not on file Last Filed Vital Signs Vital Sign Reading Time Taken Comments Blood Pressure 129/89 01/05/2025 9:28 PM CDT Pulse 72 01/05/2025 9:28 PM CDT Temperature 36.8 C (98.3 F) 01/05/2025 7:31 PM CDT Respiratory Rate 18 01/05/2025 8:39 PM CDT Oxygen Saturation 99% 01/05/2025 9:28 PM CDT Inhaled Oxygen Concentration - - Weight 95.3 kg (210 lb) 01/05/2025 8:39 PM CDT Height 162.6 cm (5' 4) 01/05/2025 8:39 PM CDT Body Mass Index 36.05 01/05/2025 8:39 PM CDT Plan of Treatment Health Maintenance Due Date Last Done Comments COLOGUARD (AGES 45-75) - COL ON CA SCREENING 1979 COLON MONITORING 1979 COLONOSCOPY - COLON CA SCREENING 1979 CT COLONOGRAPHY - COLON CA SCREENING 1979 Colorectal Cancer Screening 1979 FIT - COLON CA SCREENING 1979 FLEX SIG - COLON CA SCREENING 1979 LIPID TESTING 1979 MAMMOGRAM 1979 HIV SCREENING 1994 HEPATITIS C SCREENING 02/06/1997 DTAP/TDAP/TD VACCINES (1 - Tdap) 1998 HEPATITIS B VACCINE (1 of 3 - 19+ 3-dose series) 1998 PAP SMEAR 02/12/2000 DEPRESSION SCREENING 03/12/2024 COVID-19 VACCINE (2024-2 6 season) 2024 INFLUENZA VACCINE (#1) 2024 ZOSTER VACCINE (1 of 2) 2029 HIB VACCINE Aged Out No longer eligi ble based on patient's age to complete this topic HPV VACCINE Aged Out No longer eligi ble based on patient's age to complete this topic MENINGOCOCCAL (Group B) VACC INE SHARED DECISION-MAKING Aged Out No longer eligibl e based on patient's age to complete this topic MENINGOCOCCAL GROUPS A/C/Y/W VACCINE Aged Out No longer eligible b ased on patient's age to complete this topic PNEUMOCOCCAL VACCINE Aged Out No long er eligible based on patient's age to complete this topic Procedures Procedure Name Priority Date/Time Associated Diagnosis Comments HCG BETA BLOOD QUANTITATIVE STAT 01/05/2025 8:38 PM CDT COMPREHENSIVE METABOLIC PANEL STAT 01/05/2025 8:38 PM CDT CBC W AUTO DIFFERENTIAL STAT 01/05/2025 8:38 PM CDT from Last 3 Months Results * CBC W AUTO DIFFERENTIAL (01/05/2025 8:38 PM CDT) WBC 7.0 4.0 - 10.7 x10E9/L 01/05/2025 8:57 PM CDT [facility] RBC Count 4.88 3.90 - 5.20 x10E12/L 01/05/2025 8:57 PM CDT [facility] Hemoglobin 13.6 11.9 - 15.8 g/dL 01/05/2025 8:57 PM CDT [facility] Hematocrit 41.7 34.8 - 46.1 % 01/05/2025 8:57 PM CDT [facility] MCV 85.5 80.0 - 98.0 fL 01/05/2025 8:57 PM CDT [facility] MCH 27.9 26.7 - 33.6 pg 01/05/2025 8:57 PM CDT [facility] MCHC 32.6 31.7 - 36.3 g/dL 01/05/2025 8:57 PM CDT [facility] RDW-CV 13.4 11.3 - 14.8 % 01/05/2025 8:57 PM [facility] Platelet Count 198 150 - 420 x10E9/L 01/05/2025 8:57 PM [facility] MPV 11.2 7.8 - 11.4 fL 01/05/2025 8:57 PM [facility] Neutrophil % 55.8 41.0 - 74.0 % 01/05/2025 8:57 PM [facility] Lymphocyte % 30.8 17.0 - 47.0 % 01/05/2025 8:57 PM [facility] Monocyte % 7.4 3.0 - 11.0 % 01/05/2025 8:57 PM [facility] Eosinophil % 5.0 0.0 - 7.0 % 01/05/2025 8:57 PM [facility] Basophil % 0.6 0.0 - 1.6 % 01/05/2025 8:57 PM [facility] Immature Granulocytes % 0.4 0.0 - 1.0 % 01/05/2025 8:57 PM [facility] Neutrophil Absolute 3.91 1.60 - 7.50 x10E9/L 01/05/2025 8:57 PM [facility] Lymphocyte Absolute 2.16 1.00 - 4.40 x10E9/L 01/05/2025 8:57 PM [facility] Monocyte Absolute 0.52 0.15 - 1.00 x10E9/L 01/05/2025 8:57 PM [facility] Eosinophil Absolute 0.35 0.00 - 0.60 x10E9/L 01/05/2025 8:57 PM [facility] Basophil Absolute 0.04 0.00 - 0.13 x10E9/L 01/05/2025 8:57 PM [facility] Blood BLOOD SPECIMEN / Unknown Venipuncture / Unknown 01/05/2025 8:38 PM CDT 01/05/2025 8:48 PM CDT Bethanie Burger PA-C LAB - HEMATOLOGY ORDE RABLES Final Result [facility] [address] [place] [address], [facility] [phone] * (ABNORMAL) COMPREHENSIVE METABOLIC PANEL (01/05/2025 8:38 PM [facility]) BUN 15 7 - 26 mg/dL 01/05/2025 9:19 PM [facility] Creatinine 0.83 0.56 - 0.96 mg/dL 01/05/2025 9:19 PM [facility] Sodium 140 136 - 145 mmol/L 01/05/2025 9:19 PM [facility] Potassium 4.0 3.5 - 4.5 mmol/L 01/05/2025 9:19 PM [facility] Chloride 102 98 - 107 mmol/L 01/05/2025 9:19 PM [facility] CO2 30(H) 22 - 29 mmol/L 01/05/2025 9:19 PM [facility] Glucose 88 70 - 99 mg/dL 01/05/2025 9:19 PM [facility] Calcium 9.7 8.4 - 10.2 mg/dL 01/05/2025 9:19 PM [facility] Protein Total 7.4 6.0 - 8.3 g/dL 01/05/2025 9:19 PM [facility] Albumin 4.4 3.4 - 5.0 g/dL 01/05/2025 9:19 PM [facility] Bilirubin Total 0.4 0.2 - 1.2 mg/dL 01/05/2025 9:19 PM [facility] Alkaline Phosphatase 85 40 - 150 U/L 01/05/2025 9:19 PM [facility] ALT 17 5 - 55 U/L 01/05/2025 9:19 PM [facility] AST 18 5 - 34 U/L 01/05/2025 9:19 PM [facility] Anion Gap 8 6 - 16 01/05/2025 9:19 PM [facility] BUN/Creatinine Ratio 18 7 - 23 01/05/2025 9:19 PM CDT [facility] Osmolality Calculated 290 275 - 295 mOsm/kg 01/05/2025 9:19 PM CDT [facility] Albumin/Globulin Ratio 1.5 1.1 - 2.3 01/05/2025 9:19 PM CDT [facility] eGFR by CKD-EPI 89(L) >=90 mL/min/1.7 3 m2 01/05/2025 9:19 PM CDT [facility] Comment:Estimated Glomerular Filtration Rate (eGFR) calculated using the CKD-EPI Creatinine Equation (2020), per the National Kidney Foundation and [employer] [place] Society of Nephrology recommendations. Blood BLOOD SPECIMEN / Unknown Venipuncture / Unknown 01/05/2025 8:38 PM CDT 01/05/2025 8:49 PM CDT Bethanie Jo [facility] LAB - CHEMISTRY ORDER JANICE Final Result Performing Organization Address City/[facility]/ZIP Co de Phone Number [address] [address], [place] [phone] * HCG BETA BLOOD QUANTITATIVE (01/05/2025 8:38 PM CDT) Pathologist [facility] Beta-hCG Total Quantitative 3 mIU/mL 01/05/2025 9:28 PM CDT [facility] Comment: HCG Numeric Result Interpretation: Non- Females: < 5 mIU/mL Post-Menopausal Females: < 7 mIU/mL This assay is cleared for use in the early detection of only. It is not approved for any other uses such as tumor marker screening, tumor marker monitoring, etc. and should not be used for any other purposes. Blood BLOOD SPECIMEN / Unknown Venipuncture / Unknown 01/05/2025 8:38 PM CDT 01/05/2025 8:49 PM CDT Bethanie Jo [employer] [facility] - CHEMISTRY ORDER JANICE Final Result Performing Organization Address City/[facility]/ZIP Co de Phone Number [address] [address], [place] [phone] from Last 3 Months Insurance MEDICAID - [place]
--- OUTSIDE RECORDS SUMMARY | 2025-03-07 16:01 | XMS_ITS | Clinical Summary ---
Author Organization [facility] Address [facility] [place] [address] Care Team Providers Care Diesel Mechanic Helper Name Role Phone Chelsey Howard DARIAN Primary Care Provider [phone] Social History Tobacco Use Types Packs/Day Years [...] patient's age to complete this topic Insurance [facility] MEDICAID C/O PROVIDER SERVICES [place] [id number] Care Teams Diesel Mechanic Helper Relationship Specialty Start Date End Date Chelsey Howard APNP [address] [facility] [id number] [place] [address] PCP - General FAMILY PRACTICE 11/22/23
--- OUTSIDE RECORDS SUMMARY | 2025-03-07 16:01 | XMS_ITS | Encounter Summary ---
Author Organization [facility] Address [facility] [place] [address] Care Team Providers Care Post Secondary Professional Name Role Phone Chelsey Howard Primary Care Provider Encounter Details Date Type Department Care Team (Late st Contact Info) Description 08/17/2018 Abstract [facility]FL CONVERSION [address] [place] [address] , Generic Conversion, Social History Tobacco Use [...] on filedocumented in this encounter Care Teams Post Secondary Professional Relationship Specialty Start Date End Date Chelsey Howard APNP [address] [facility] [id number] [address] PCP - General FAMILY PRACTICE 11/22/23 documented as of this encounter
--- OUTSIDE RECORDS SUMMARY | 2025-03-07 16:01 | XMS_ITS | Clinical Summary ---
Author Organization [facility] Medical Office Building [address] Address [address] [place] [address] Care Team Providers Care Biochemical Development Engineer Name Role Phone Wanda Clark NP Primary Care Provider [phone] Allergies No known active allergies Medications No [...] Plan of Treatment Not on file Insurance [facility] MEDICAID Advance Directives For more information, please contact: [phone] * Full Code (Latest Code Status on File) Date Activated Date Inactivated Comments 08/20/2017 2:16 PM 08/22/2017 4:47 PM Care Teams Biochemical Development Engineer Relationship Specialty Start Date End Date Wanda Clark NP [address] [facility] [address] [place] [address] PCP - General Family Medicine 09/04/17
[2025-03-07 16:10] LABS: Hematocrit 41.8 % (35.0-49.0); Hemoglobin 12.7 g/dL (12.0-15.0); Mean Corpuscular HGB Conc 30.4 g/dL (32-36); Mean Corpuscular Hemoglobin 27.9 pg (27.0-31.0); Mean Corpuscular Volume 91.7 fL (78.0-102.0); Platelet Count Result 233 K/mm3 (150-420); Red Blood Count 4.56 M/mm3 (4.20-5.40); White Blood Count 21.8 K/mm3 (4.8-10.8)
[2025-03-07 16:16] LABS: SPREG INTERNAL CONTROL Positive; Serum Qual hCG Negative
[2025-03-07 16:19] LABS: Acetaminophen < 10 ug/mL (10-30); INR 1.1; Prothrombin Time 12.2 Seconds (9.50-12.1); Salicylate < 1.0 mg/dL (2-20)
[2025-03-07 16:20] LABS: Alanine Aminotransferase 134 U/L (6-35); Albumin Level 4.2 g/dL (3.5-5.1); Alkaline Phosphatase 61 U/L (38-126); Anion Gap 16 mmol/L (4-12); Aspartate Amino Transferase 200 U/L (14-36); Bilirubin,Total 0.5 mg/dL (0.2-1.3); Blood Urea Nitrogen 13 mg/dL (7-17); Calcium 8.4 mg/dL (8.4-10.2); Carbon Dioxide 19 mmol/L (22-30); Chloride 107 mmol/L (98-107); Creatine Kinase 1438 U/L (30-135); Estimated CRCL calculation 49 ml/min; Estimated Glomerular Filt Rate 40; Magnesium 2.2 mg/dL (1.6-2.3); Osmolality Calculated 292 mOsm/kg (285-295); Potassium 5.0 mmol/L (3.4-5.0); Sodium 142 mmol/L (137-145); Total Protein 6.8 g/dL (6.3-8.2)
[2025-03-07 16:21] LABS: Glucose 56 mg/dL (65-110)
[2025-03-07] MEDS: DEXTROSE 50% 25 GM/50 ML SYRINGE IV PUSH (16:27)
[2025-03-07] MEDS: SODIUM CHLORIDE 0.9% IV 1,000 ML 999 ML IV CONT ×2 (16:28→20:25)
[2025-03-07 16:29] LABS: Add Urine Microscopic? YES; Appearance Urine Clear (Clear); Glucose Urine UA 1+ (Negative); Leukocyte Esterase Ur Negative LEU/UL (Negative); Nitrate Urine Negative (Negative); Specific Grav Ur 1.025 (1.010-1.020)
[2025-03-07 16:33] LABS: Band Neutrophils Percent 7 % (0-6); Basophils Absolute Manual 0.00 K/mm3 (0-0.1); Basophils Percent Manual 0 % (0-1); Eosinophils Absolute Manual 0.00 K/mm3 (0.02-0.50); Eosinophils Percent Manual 0 % (1-6); Lymphocytes Absolute Manual 1.09 K/mm3 (1.1-4.5); Lymphocytes Percent Manual 5 % (18-44); Monocytes Absolute Manual 2.83 K/mm3 (0.1-0.90); Monocytes Percent Manual 13 % (3-9); Neutrophils Absolute Manual 17.87 K/mm3 (1.3-6.7); Neutrophils Percent Manual 75 % (46-73); Total Cells Counted 100
[2025-03-07 16:46] LABS: Cannabinoid Screen Urine Negative (Negative)
[2025-03-07] MEDS: IPRATROPIUM 0.5 MG/ALBUTEROL SULFATE 2.5 MG (BASE) AMPUL.NEB 3 ML 6 ML INHALATION (18:11)
[2025-03-07] MEDS: DEXTROSE 5%/0.45% SOD CHL 1,000 ML 100 ML IV CONT (18:13)
--- NOTE | 2025-03-07 18:23 | PC.NURSE ---
Cardiopulmonary paged to possibly intubate patient who has trouble maintaining O2 saturation and airway.
--- NOTE | 2025-03-07 18:47 | PC.NURSE ---
183 Ai from cardiopulmonary arrived to see patient.
--- NOTE | 2025-03-07 19:10 | PC.NURSE ---
Care resumed, report received, pt is awake and tracking when asking questions, she is currently on bipap w/ settings per ERP. Pt sitting upright and continuing to monitor. Call will be placed for transfer to [facility]. Attempted call to [place] but not available at this time.
[2025-03-07] MEDS: cefTRIAXone 1 GM in SODIUM CHLORIDE 0.9% IV 50 ML 100 ML IVPB (19:24)
[2025-03-07 19:31] LABS: HCO3 ABG 22.3 mmol/L (23-29); Oxygen Saturation ABG 90.3 % (95-97); PCO2 ABG 51.3 mmHg (35-45); PO2 ABG 63.9 mmHg (80-90)
[2025-03-07 19:33] LABS: Liters per Minute 0.0 LPM; Modified Allen's Test Unable to perform; Site Drawn RIGHT RADIAL
[2025-03-07] MEDS: metroNIDAZOLE 500 MG/ISO 100ML 500 MG/100 ML BAG 100 MG IVPB (19:55)
--- NOTE | 2025-03-07 20:00 | PC.NURSE ---
Pt is more alert and wanting to know what happend to her today. Pt continues to remain on bipap and info explained and given to pt. Eid cath placed per order. Bed received for transfer ti [facility]
[2025-03-07] MEDS: AZITHROMYCIN IV 500 MG in SODIUM CHLORIDE 0.9% IV 250 ML IVPB (20:17)
[2025-03-07] MEDS: DEXTROSE 5%/LACTATED RINGERS 1,000 ML 100 ML IV CONT (20:28)
--- NOTE | 2025-03-07 21:11 | PC.NURSE ---
Pt sleeping, awakens to name and follows commands then falls asleep again, continuing to monitor, VSS, pt remains on bipap. Call placed to [facility] to update on transfer time d/t no EMS available for transfer at this time. Will await about 2 hrs before EMS can take pt for transfer.
--- NOTE | 2025-03-07 22:50 | PC.NURSE ---
Pt resting comfortable w/ Bipap on and inplace, continuing to monitor, VSS, EMS [facility] here for pt transfer.
== END 2025-03-07 23:12 | disposition short-term general hospital (02) ==
PROVIDERS: Emergency Provider Preventive Medicine Aerospace Medicine; Referring Provider Family Medicine
DX: J18.9 Pneumonia, unspecified organism (principal); N17.9 Acute kidney failure, unspecified; F14.129 Cocaine abuse with intoxication, unspecified; F15.129 Other stimulant abuse with intoxication, unspecified; M62.82 Rhabdomyolysis; E16.2 Hypoglycemia, unspecified; J96.01 Acute respiratory failure with hypoxia; I10 Essential (primary) hypertension; F17.210 Nicotine dependence, cigarettes, uncomplicated
CPT/HCPCS: 36415; 36600; 70450; 70486; 71045; 72125; 80053; 80143; 80179; 80307; 81001; 82077; 82550; 82805; 82948; 83735; 84703; 85025; 85610; 93005; 94640; 96361; 96365; 96367; 96372; 96375; 99291; J0456; J0696; J1100; J1200; J1630; J1836; J2060; J7030; J7050; J7121